=== PATIENT | male | born 1960 | race Caucasian/White ===

== ENCOUNTER → 2020-05-09 08:42 | Outpatient (REF) | payer MEDICAID, SELFPAY ==
--- NOTE | ~2020-05-09 | NM_ITS ---
Myocardial perfusion study Indication: Chest pain to evaluate for myocardial ischemia Technique: The patient was brought in for a Lexiscan perfusion study on 05/09/2020. Patient performed low-level exercise and was injected 0.4 mg of Lexiscan intravenously. Within a minute of injection, 45 mCi of sestamibi was given intravenously. Images were obtained using the SPECT gamma camera interlaced with the gating device. Images were obtained in supine position. Resting perfusion study was performed on 05/10/2020. Patient was administered 45 mCi of sestamibi intravenously at rest. Images were then obtained in supine position. Images were obtained with and without CT attenuation. Total DLP 83 mGy-cm. Images were processed with the software and compared side to side in short axis, horizontal long axis and vertical long axis views. Findings: The stress perfusion study showed non attenuated images show minimal thinning of the basal and mid inferior wall of the LV myocardium, remainder of the LV myocardium is normally perfused. Attenuation corrected images show mildly reduced uptake in the apex of the LV myocardium.. The gated study shows normal LV systolic function with calculated LVEF of 68%. LV cavity is normal in size. The gated study shows normal systolic wall thickening and contraction of segments. Resting study shows no change in perfusion pattern compared to stress perfusion study. Gating at rest reveals normal cyst colic wall motion with ejection fraction at greater than 60 %. The findings are consistent with normal myocardial perfusion. NM/NM raymundo perf SPECT rest & str Impression: 1. Myocardial perfusion imaging study shows normal myocardial perfusion 2. Gated LVEF is 68% 3. Transient ischemic dilatation not present EKG is nondiagnostic for ischemia
--- NOTE | 2020-05-09 09:15 | CA_ITS ---
Acquisition Time: 2020-05-09 09:33:17 Total Exercise Time: 00:02:00 Test Indications: CHEST PAIN Medications: SEE CHART Protocol: LEXISCAN Max HR: 079 BPM 49% of Pred: 159 BPM Max BP: 132/076 mmHG Max Work Load: 1.0 METS Pharmacological stress test using Lexiscan while sitting and kicking his feet. Pt tolerated well, denies any anginal sx. EKG without any arrhythmias. Non-diagnostic for ischemia. Nuclear images to follow. Normotensive response to test. Test reviewed with Dr. Gonzalez. Referred By: Scott Childs Overread By: Tamiko Katz NP
== END ==
LOC: HO.CARD 08:42
PROVIDERS: PCP Internal Medicine; Visit Provider Internal Medicine Cardiovascular Disease
DX: R07.9 Chest pain, unspecified (principal)
CPT/HCPCS: 78452; 93017; A9500; J0280; J2785

== ENCOUNTER 2020-11-14 16:25 | Outpatient (REF) | payer MEDICAID, SELFPAY ==
[2020-11-14 17:29] LABS: Hematocrit 43.8 % (42-52); Hemoglobin 14.7 g/dl (14.0-18.0); Mean Corpuscular HGB Conc 33.6 g/dl (31.0-36.0); Mean Corpuscular Hemoglobin 29.5 pg (27.0-33.0); Mean Platelet Volume 10.3 fL (9.4-12.4); Platelet Count 223 X10*3/uL (160-400); Red Blood Count 4.98 X10*6/uL (4.60-5.80); Red Cell Distribution Width 13.2 % (11.0-16.0); White Blood Count 12.2 X10*3/uL (4.8-10.8)
[2020-11-14 17:40] LABS: Alanine Aminotransferase 31 U/L (0-40); Albumin Level 4.1 g/dL (3.5-5.0); Alkaline Phosphatase 73 U/L (39-117); Anion Gap 12 (12-20); Aspartate Amino Transferase 25 U/L (5-37); Bilirubin Total 0.3 mg/dL (0.0-1.0); Blood Urea Nitrogen 15 mg/dL (9-16); Calcium 9.3 mg/dL (8.4-10.2); Carbon Dioxide 22 mmol/L (22-29); Chloride 110 mmol/L (96-108); Cholesterol 183 mg/dL; Estimated Glomerular Filt Rate 46; Glucose Random 71 mg/dL (60-115); HDL Cholesterol 40 mg/dL; LDL Cholesterol Calculated 109 mg/dl; Potassium 4.2 mmol/L (3.3-5.1); Sodium 140 mmol/L (135-145); Total Protein 6.7 g/dL (6.5-8.0); Triglycerides 171 mg/dL
[2020-11-14 18:01] LABS: Thyroid Stimulating Hormone 2.16 uIU/mL (0.32-4.0)
== END 2020-11-14 16:26 | disposition home or self-care (01) ==
LOC: HO.LAB 16:25
PROVIDERS: PCP Internal Medicine; Visit Provider Internal Medicine
DX: J44.9 Chronic obstructive pulmonary disease, unspecified (principal); I10 Essential (primary) hypertension
CPT/HCPCS: 36415; 80053; 80061; 84443; 85027

== ENCOUNTER 2022-01-22 10:41 | Outpatient (REF) | payer MEDICAID, SELFPAY ==
--- NOTE | ~2022-01-22 | XR_ITS ---
EXAMINATION: XR LUMBOSACRAL SPINE CLINICAL INFORMATION: Low back pain COMPARISON: None TECHNIQUE: Three views of the lumbosacral spine. FINDINGS: There is normal lumbar lordosis. The vertebral heights, alignment and disc heights are normal. There is mild ventral spondylosis. No visible acute fracture or dislocation seen. No lytic process. There is moderate right L4-L5 facet joint hypertrophy. The SI joints are symmetrical and normal. The soft tissues are normal. XR/XR lumbar spine 2-3V IMPRESSION: Moderate right L4-L5 facet joint hypertrophy. No visible acute fracture, dislocation or lytic process seen.
== END 2022-01-22 10:42 | disposition home or self-care (01) ==
LOC: HO.XRAY 10:41
PROVIDERS: Visit Provider Internal Medicine
DX: M54.50 Low back pain, unspecified (principal)
CPT/HCPCS: 72100

== ENCOUNTER 2022-07-25 11:15 | Emergency (ER) | payer MEDICAID, SELFPAY ==
--- NOTE | ~2022-07-25 | CT_ITS ---
EXAMINATION: CT ABDOMEN AND PELVIS WITH CONTRAST CLINICAL INFORMATION: Abdominal pain and constipation. Rule out obstruction. COMPARISON: Previous CT of the abdomen and pelvis April 2014 TECHNIQUE: Multidetector volumetric images were obtained from the superior aspect of the liver through the pubic symphysis following administration 85 mL of Omnipaque 350 intravenous contrast. Sagittal and coronal reformatted images were obtained on the technologist's workstation. Oral contrast: Yes This CT examination was performed using dose optimization techniques as appropriate, variously including the following: *Automated exposure control *Adjustment of mA and/or kV according to patient size (this includes techniques or standardized protocols for targeted exams where dose is matched to indication/reason for exam; i.e. extremities or head) *Use of iterative reconstruction technique DLP: 850 mGy-cm FINDINGS: LUNG BASES: The visualized lung bases are unremarkable. LIVER, GALLBLADDER, AND BILIARY TREE: Fatty liver. No focal hepatic lesion or biliary ductal dilatation is present. Small gallstone in the gallbladder. The gallbladder is otherwise unremarkable. No biliary duct dilatation. Inflammatory changes. PANCREAS: There is fatty infiltration of the pancreas. There are small calcifications in the pancreas suggestive of chronic pancreatitis. SPLEEN: Unremarkable. ADRENAL GLANDS: Unremarkable. KIDNEYS AND URETERS: Mild right hydronephrosis and ureteral dilatation from a 3 mm right UVJ stone. Small bilateral 1 to 2 mm renal stones are 2 cm right renal cyst. No imaging follow-up recommended. BLADDER: Small 3 mm right UVJ stone. The bladder is distended. GASTROINTESTINAL TRACT: Moderate stool burden. The small and large bowel are otherwise unremarkable. The appendix is unremarkable. ABDOMINAL WALL: No significant hernia is appreciated. LYMPH NODES: Normal. VASCULAR: Atherosclerotic disease. No aneurysm. PELVIC VISCERA: Unremarkable. OSSEOUS STRUCTURES: Degenerative changes of the spine. CT/CT abdomen pelvis w IV con IMPRESSION: Mild right hydronephrosis and ureteral dilatation from a 3 mm right UVJ stone. Small bilateral renal stones. Constipation. No evidence of obstruction. Small gallstone. Fleischner guidelines were followed.
--- NOTE | ~2022-07-25 | XR_ITS ---
EXAMINATION: XR ABDOMEN COMPLETE CLINICAL INDICATION: Abdominal pain. Unable to pass stools for a few days. COMPARISON: None available. TECHNIQUE: 2 views of the abdomen. FINDINGS: There is minimal gas in the right and ascending colon and minimal stool in the left colon. There is no suggestion of constipation. The small bowel loops are normal caliber. No free air or free fluid seen. No organomegaly. No gross bony abnormality. No radiopaque calculi except for phleboliths in the pelvis. XR/XR acute abdomen series IMPRESSION: Unremarkable abdomen series. No free air or free fluid.
--- NOTE | 2022-07-25 11:25 | ED_ITS ---
HPI - General Adult General Chief complaint: Abdominal Pain Stated complaint: CONSTIPATION X1 WK W/NO RELEIF S/P MULTI METHODS Time Seen by Provider: 07/25/22 11:25 Source: patient and EMS Mode of arrival: EMS Limitations: no limitations History of Present Illness HPI narrative: Patient is a 61 year old assigned male at with no reported medical history presenting to the emergency department today with constipation. Patient states that he has not been able to have a bowel movement for 5 days and he feels very backed up. Patient states that he has tried multiple things including multiple OTC medication and even manual disimpaction. Patient denies any dizziness, lightheadedness, nausea, vomiting, fever, chills, blurry vision, double vision, loss of vision, chest pain, difficulty breathing, shortness of breath, back pain, night sweats, pain with urination, increased urinary frequency, increased urinary urgency, blood in his urine, syncope or a near syncopal episode, recent trauma or falls, bowel incontinence, bladder incontinence, bladder retention, or any other complaints at this time. Onset (ago): day(s) (5) Location: abdomen Severity: mild Pain Consistency: constant Relieving factors: none Exacerbating factors: none Associated symptoms: denies other symptoms Treatments prior to arrival: none Related Data Previous Rx's Medication Instructions Recorded prednisone 20 mg tablet 20 mg PO DAILY 7 days #7 tabs 07/25/22 tamsulosin 0.4 mg capsule 0.4 mg PO BEDTIME #7 caps 07/25/22 Allergies Allergy/AdvReac Type Severity Reaction Status Date / Time No Known Allergies Allergy Unverified 11/12/19 14:37 [No Known Allergies*] Review of Systems Constitutional: Constitutional: Reports no additional constitutional complaints, Denies chills, Denies fever(s) and Denies night sweats Eyes: Eyes: Reports no additional eye complaints, Denies blurry vision, Denies change in vision, Denies diplopia, Denies eye discharge, Denies loss of vision and Denies eye pain ENT: Denies dizziness Cardiovascular: Cardiovascular: Reports no additional cardiovascular complaint s, Denies chest pain, Denies lightheadedness, Denies Loss of Consciousness and Denies dyspnea Respiratory: Respiratory: Reports no additional respiratory complaints and Denies dyspnea Gastrointestinal: Gastrointestinal: Reports no additional gastrointestinal complaints, Reports abdominal pain, Denies melena, Denies hematochezia, Denies change in bowel habits, Denies change in stool character and Reports constipation Genitourinary: Genitourinary: Reports no additional male genitourinary complaints, Denies hematuria, Denies oliguria, Denies difficulty urinating, Denies dysuria, Denies urinary frequency, Denies urinary hesitancy, Denies urinary incontinence and Denies urinary urgency Musculoskeletal: Musculoskeletal: Reports no additional musculoskeletal complaints, Denies numbness and Denies tingling Neurologic: Denies dizziness, Denies loss of vision, Denies numbness and Denies tingling Psychiatric: Psychiatric: Reports no additional psychiatric complaints Endocrine: Endocrine: Reports no additional endocrine complaints Hematologic/Lymphatic: Hematologic/Lymphatic: Reports no additional hematologic/lymphatic complaints Allergic/Immunologic: Allergic/Immunologic: Reports no additional allergic/immunologic complaints PMFSH Past Medical History Attestation statement: The following information was validated with the patient. Source: old records reviewed and nursing notes reviewed Social History Social History Advance Directives: No Advance Directives Information Provided: Yes Physical Exam ED Vital Signs: Vital Signs - 24 hr 07/25/22 11:31 07/25/22 14:34 Temperature 97.5 F 97.5 F Pulse Rate 68 76 Respiratory Rate 18 18 Blood Pressure 169/75 H 93/49 L Pulse Oximetry 99 94 Oxygen Delivery Method Room Air Room Air BMI result Body Mass Index 36.7 Const General: cooperative, no acute distress, alert and awake Nutritional Appearance: well nourished Orientation/consciousness: patient oriented x3 Limitations: no limitations [facility] Head: Yes normal to inspection and Yes atraumatic Ears: hearing grossly normal bilaterally and external ears normal General nose exam: Normal external nose present, no nasal discharge noted and no epistaxis Face and sinus: Yes normal facial exam, No abrasion and No laceration Mouth: Normal oral and palatal mucosa present, no drooling and no muffled voice Eyes General: appearance normal, both eyes and all related structures Periorbital: periorbital findings normal Eyelids: Yes eyelids normal Conjunctivae: conjunctivae normal Pupils: Equal, round and reactive pupils present EOM: EOMs intact bilaterally Neck Neck: Yes normal visual inspection, Yes full ROM and Yes no lymphadenopathy Chest Chest palpation & inspection: normal inspection of the chest Resp Effort & Inspection: normal respiratory effort and able to speak in complete sentences GI Inspection: Yes normal to inspection Palpation (GI): Soft to palpation, not firm, nontender, no guarding and not rigid Neuro General: patient oriented x3 and moves all extremities Cranial nerves: Yes Equal, round and reactive pupils present Cognition (Neuro): normal cognition Motor exam (neuro): 5/5 motor strength present throughout Sensory Exam: Normal double simultaneous stimulation for sensation Coordination: [id number] test normal Extrem General: Yes normal to inspection, Yes full ROM and Yes capillary refill normal Psych Appearance: grossly normal Mental Status: mental status grossly normal Affect: normal affect Attitude: cooperative Thought process: Normal thought process present Thought content: Normal thought content present Insight: Good insight present (Psych) Medications Administered Discontinued Medications Generic Name Dose Route Start Last Admin Trade Name Yaneth PRN Reason Stop Dose Admin Barium Sulfate 900 ml 07/25/22 15:06 07/25/22 15:07 Barium Sulfate Oral (Vanilla) 450 Ml Oral.Susp PO 07/25/22 15:07 900 ml ONCE ONE Administration Sodium Chloride 1,000 mls @ 999 mls/hr 07/25/22 12:15 07/25/22 14:26 Ns IV 07/25/22 13:15 Infused .Q1H1M TIMA Infusion Iohexol 100 ml 07/25/22 15:07 07/25/22 15:07 Iohexol 350 Mg/Ml 100 Ml Infus..Btl IV 07/25/22 15:08 85 ml ONCE ONE Administration Medical Decision Making Medical Decision Making [facility] Narrative: Patient is a 61 year old assigned male at with no reported medical history presenting to the emergency department today with constipation. Patient's physical exam was unremarkable. Patient's blood work was unremarkable. Patient's abdominal x-ray showed no acute process. Patient's abdominal / pelvis CT showed mild right hydronpehrosis and ureteral dilatation from a 3mm right UVJ stone. I explained my physical exam findings as well as all test results to the patient. I answered all questions asked by the patient. I stressed the importance of the patient taking his medication as prescribed. I stressed the importance of the patient following up with his primary care provider and a urologist. I stressed the importance of the patient returning to the emergency department immediately if his symptoms were to worsen or if he were to develop any dizziness, shortness of breath, difficulty breathing, chest pain, blurry vision, loss of vision, nausea, vomiting, abdominal pain, fever, chills, back pain, or any other compl aints. Patient verbalized agreement and understanding with this treatment plan and discharge. Differential Diagnosis Differential Diagnoses: The differential diagnosis associated with the presentation includes constipation, kidney stone Admission/Observation Consideration of admission/observation: Escalation of care including admission/observation considered Patient would have been admitted to the hospital had his work up had any findings where hospital admission was appropriate. Lab Data MDM Lab Attestation statement: I reviewed the patient's lab results. My interpretation of these studies and their corresponding values is that they are grossly normal. 07/25/22 11:39 07/25/22 11:39 Labs: Lab Results 07/25/22 07/25/22 Range/Units 11:39 11:39 WBC 12.4 H (4.8-10.8) X10*3/uL RBC 5.12 (4.60-5.80) X10*6/uL Hgb 14.6 (14.0-18.0) g/dl Hct 44.0 (42.0-52.0) % MCV 85.9 (80.0-98.0) fL MCH 28.5 (27.0-33.0) pg MCHC 33.2 (31.0-36.0) g/dl RDW 12.7 (11.0-16.0) % Plt Count 261 (160-400) X10*3/uL MPV 9.9 (9.4-12.4) fL Immature Gran % (Auto) 0.3 (0.0-0.4) % Neut % (Auto) 66.5 (45-73) % Lymph % (Auto) 23.9 (20-40) % Pickett % (Auto) 7.2 (2-11) % Eos % (Auto) 1.4 (0-4) % Baso % (Auto) 0.7 (0-2) % Lymph # (Auto) 3.0 (1.2-4.9) X10*3/uL Pickett # (Auto) 0.9 (0.1-1.2) X10*3/uL Eos # (Auto) 0.2 (0.0-0.4) X10*3/uL Baso # (Auto) 0.1 (0.0-0.2) X10*3/uL Abs Immat Gran (auto) 0.04 H (0.00-0.03) X10*3/uL Absolute Neuts (auto) 8.3 (2.0-8.3) x10*3/uL Absolute Nucleated RBC 0.000 (0.0-0.012) X10*3/uL Nucleated RBC % (auto) 0.0 (0.0-0.2) /100WBC Sodium 140 (135-145) mmol/L Potassium 4.0 (3.3-5.1) mmol/L Chloride 110 H (96-108) mmol/L Carbon Dioxide 24 (22-29) mmol/L Anion Gap 10 L (12-20) BUN 14 (9-16) mg/dL Creatinine 1.82 H (0.5-1.4) mg/dL Estim Creat Clear Calc 51.4 Estimated GFR 38 Random Glucose 113 (60-115) mg/dL Calcium 9.6 (8.4-10.2) mg/dL Magnesium 2.1 (1.6-2.6) mg/dL Total Bilirubin 0.6 (0.0-1.0) mg/dL AST 28 (5-37) U/L ALT 37 (0-40) U/L Alkaline Phosphatase 77 (39-117) U/L Total Protein 7.2 (6.5-8.0) g/dL Albumin 4.3 (3.5-5.0) g/dL Independent Interpretation I performed an independent interpretation of an: Plain X-Ray Interpretation: My interpretation is in agreement with the radiologist's impression of these imaging studies. EXAMINATION: XR ABDOMEN COMPLETE CLINICAL INDICATION: Abdominal pain. Unable to pass stools for a few days. COMPARISON: None available. TECHNIQUE: 2 views of the abdomen. FINDINGS: There is minimal gas in the right and ascending colon and minimal stool in the left colon. There is no suggestion of constipation. The small bowel loops are normal caliber. No free air or free fluid seen. No organomegaly. No gross bony abnormality. No radiopaque calculi except for phleboliths in the pelvis. XR/XR acute abdomen series IMPRESSION: Unremarkable abdomen series. ? No free air or free fluid. Dictated By: Peña Perry MD Signed By: Electronically signed by Peña Perry MD 07/25/22 1501 EXAMINATION: CT ABDOMEN AND PELVIS WITH CONTRAST? CLINICAL INFORMATION: Abdominal pain and constipation. Rule out obstruction.? COMPARISON: Previous CT of the abdomen and pelvis April 2014 TECHNIQUE: Multidetector volumetric images were obtained from the superior aspect of the liver through the pubic symphysis following administration 85 mL of Omnipaque 350 intravenous contrast. Sagittal and coronal reformatted images were obtained on the technologist's workstation.? Oral contrast: Yes This CT examination was performed using dose optimization techniques as appropriate, variously including the following: *Automated exposure control *Adjustment of mA and/or kV according to patient size (this includes techniques or standardized protocols for targeted exams where dose is matched to indication/reason for exam; i.e. extremities or head) *Use of iterative reconstruction technique DLP: 850 mGy-cm FINDINGS: LUNG BASES: The visualized lung bases are unremarkable.? LIVER, GALLBLADDER, AND BILIARY TREE: Fatty liver. No focal hepatic lesion or biliary ductal dilatation is present. Small gallstone in the gallbladder. The gallbladder is otherwise unremarkable. No biliary duct dilatation. Inflammatory changes.? PANCREAS: There is fatty infiltration of the pancreas. There are small calcifications in the pancreas suggestive of chronic pancreatitis. SPLEEN: Unremarkable.? ADRENAL GLANDS: Unremarkable.? KIDNEYS AND URETERS: Mild right hydronephrosis and ureteral dilatation from a 3 mm right UVJ stone. Small bilateral 1 to 2 mm renal stones are 2 cm right renal cyst. No imaging follow-up recommended. BLADDER: Small 3 mm right UVJ stone. The bladder is distended. GASTROINTESTINAL TRACT: Moderate stool burden. The small and large bowel are otherwise unremarkable. The appendix is unremarkable.? ABDOMINAL WALL: No significant hernia is appreciated.? LYMPH NODES: Normal. VASCULAR: Atherosclerotic disease. No aneurysm. PELVIC VISCERA: Unremarkable.? OSSEOUS STRUCTURES: Degenerative changes of the spine. CT/CT abdomen pelvis w IV con IMPRESSION: Mild right hydronephrosis and ureteral dilatation from a 3 mm right UVJ stone. Small bilateral renal stones. Constipation. No evidence of obstruction. Small gallstone. ? Fleischner guidelines were followed. Dictated By: Alia Ling MD Signed By: Electronically signed by Alia Ling MD 07/25/22 1600 Discharge Plan Discharge Clinical Impression: Constipation, Kidney calculi Patient Disposition: Home, Self-Care Instructions: Constipation (DC), Kidney Stones (ED) Additional Instructions: Follow up with your primary care provider and a urologist. Return to the emergency department immediately if your symptoms worsen or if you develop any dizziness, shortness of breath, difficulty breathing, chest pain, blurry vision, loss of vision, nausea, vomiting, abdominal pain, fever, chills, back pain, or any other complaints. Prescriptions: New tamsulosin 0.4 mg capsule 0.4 mg PO BEDTIME Qty: 7 0RF prednisone 20 mg tablet 20 mg PO DAILY 7 Days Qty: 7 0RF Referrals: [facility] [place] Family Medicine [Provider Group] (Call to establish and follow up with a primary care provider. If you already have a primary care provider, please follow up with them.) [facility] [place] Primary [facility] [Provider Group] (Call to establish and follow up with a primary care provider. If you already have a primary care provider, please follow up with them.) [facility] [place] Primary [facility] [Provider Group] (Call to establish and follow up with a primary care provider. If you already have a primary care provider, please follow up with them.) Interventions: ED Discharge Assessment Last Done: 07/25/22 16:40 Discharge Date/Time: 07/25/22 16:41 Print Language: Danish
[2022-07-25 11:26] VITALS: BP 150/100
[2022-07-25 11:31] VITALS: BP 169/75; PULSE 68; RESP 18; TEMP 36.4; O2SAT 99; BMI 36.7
[2022-07-25 11:43] LABS: MANUAL DIFF FLAG NO
[2022-07-25 11:59] LABS: Alanine Aminotransferase 37 U/L (0-40); Albumin Level 4.3 g/dL (3.5-5.0); Alkaline Phosphatase 77 U/L (39-117); Anion Gap 10 (12-20); Aspartate Amino Transferase 28 U/L (5-37); Bilirubin Total 0.6 mg/dL (0.0-1.0); Blood Urea Nitrogen 14 mg/dL (9-16); Calcium 9.6 mg/dL (8.4-10.2); Carbon Dioxide 24 mmol/L (22-29); Chloride 110 mmol/L (96-108); Creatinine Clr Calc Pharmacy 51.4; Estimated Glomerular Filt Rate 38; Glucose Random 113 mg/dL (60-115); Magnesium 2.1 mg/dL (1.6-2.6); Sodium 140 mmol/L (135-145); Total Protein 7.2 g/dL (6.5-8.0)
[2022-07-25 12:02] LABS: Basophils Absolute Auto 0.1 X10*3/uL (0.0-0.2); Basophils Percent Auto 0.7 % (0-2); Eosinophils Absolute Auto 0.2 X10*3/uL (0.0-0.4); Eosinophils Percent Auto 1.4 % (0-4); Hemoglobin 14.6 g/dl (14.0-18.0); Imm Gran Abs Auto 0.04 X10*3/uL (0.00-0.03); Imm Gran Pct Auto 0.3 % (0.0-0.4); Lymphocytes Percent Auto 23.9 % (20-40); Mean Corpuscular HGB Conc 33.2 g/dl (31.0-36.0); Mean Corpuscular Hemoglobin 28.5 pg (27.0-33.0); Mean Corpuscular Volume 85.9 fL (80.0-98.0); Mean Platelet Volume 9.9 fL (9.4-12.4); Monocytes Absolute Auto 0.9 X10*3/uL (0.1-1.2); Monocytes Percent Auto 7.2 % (2-11); Neutrophils Absolute Auto 8.3 x10*3/uL (2.0-8.3); Neutrophils Percent Auto 66.5 % (45-73); Platelet Count 261 X10*3/uL (160-400); Red Blood Count 5.12 X10*6/uL (4.60-5.80); Red Cell Distribution Width 12.7 % (11.0-16.0); White Blood Count 12.4 X10*3/uL (4.8-10.8)
[2022-07-25] MEDS: 0.9 % Sodium Chloride 1,000 ML 999 ML IV (12:32)
[2022-07-25 14:34] VITALS: BP 93/49; PULSE 76; RESP 18; TEMP 36.4; O2SAT 94
[2022-07-25] MEDS: iohexoL 350 MG/ML 100 ML INFUS..BTL IV (15:07)
[2022-07-25] MEDS: Barium Sulfate Oral (Vanilla) 450 ML ORAL.SUSP 900 ML PO (15:07)
[2022-07-25 16:11] VITALS: BP 119/60; PULSE 63
== END 2022-07-25 16:41 | disposition home or self-care (01) ==
PROVIDERS: Physician Assistant Medical; Emergency Provider Emergency Medicine; PCP Orthopaedic Surgery
DX: N20.0 Calculus of kidney (principal); K59.00 Constipation, unspecified
CPT/HCPCS: 36415; 51798; 74022; 74177; 80053; 83735; 85025; 96360; 96361; 99284; Q9967

== ENCOUNTER 2023-07-01 10:17 | Outpatient (REF) | payer MEDICAID, SELFPAY ==
[2023-07-01 14:16] LABS: MANUAL DIFF FLAG NO
[2023-07-01 14:20] LABS: Basophils Absolute Auto 0.1 X10*3/uL (0.0-0.2); Basophils Percent Auto 0.7 % (0-2); Eosinophils Absolute Auto 0.3 X10*3/uL (0.0-0.4); Hematocrit 45.4 % (42.0-52.0); Hemoglobin 14.8 g/dl (14.0-18.0); Imm Gran Abs Auto 0.07 X10*3/uL (0.00-0.03); Imm Gran Pct Auto 0.7 % (0.0-0.4); Lymphocytes Absolute Auto 3.7 X10*3/uL (1.2-4.9); Mean Corpuscular HGB Conc 32.6 g/dl (31.0-36.0); Mean Platelet Volume 10.7 fL (9.4-12.4); Monocytes Absolute Auto 0.8 X10*3/uL (0.1-1.2); Monocytes Percent Auto 7.8 % (2-11); Neutrophils Absolute Auto 4.8 x10*3/uL (2.0-8.3); Neutrophils Percent Auto 49.8 % (45-73); Platelet Count 248 X10*3/uL (160-400); Red Cell Distribution Width 13.9 % (11.0-16.0); White Blood Count 9.7 X10*3/uL (4.8-10.8)
[2023-07-01 14:45] LABS: Alanine Aminotransferase 39 U/L (0-40); Albumin Level 3.9 g/dL (3.5-5.0); Alkaline Phosphatase 82 U/L (39-117); Anion Gap 10 (12-20); Aspartate Amino Transferase 33 U/L (5-37); Bilirubin Total 0.4 mg/dL (0.0-1.0); Blood Urea Nitrogen 14 mg/dL (9-16); Calcium 9.3 mg/dL (8.4-10.2); Carbon Dioxide 21 mmol/L (22-29); Chloride 114 mmol/L (96-108); Cholesterol 147 mg/dL (<200); Estimated Glomerular Filt Rate 46; Glucose Random 99 mg/dL (60-115); HDL Cholesterol 38 mg/dL (>40); LDL Cholesterol Calculated 95 mg/dL (<100); Potassium 4.4 mmol/L (3.3-5.1); Sodium 141 mmol/L (135-145); Triglycerides 74 mg/dL (<150)
[2023-07-01 14:49] LABS: TSH reflex Free T4 1.03 uIU/mL (0.32-4.0)
[2023-07-02 04:19] LABS: HIV AB/AG Nonreactive (Nonreactive); HIV Num 1 0.03 S/CO (0.00-0.99); ~HepC Num1 0.08 S/CO (0.00-0.79); ~Hepatitis C Antibody Nonreactive (Nonreactive)
== END 2023-07-01 10:18 | disposition home or self-care (01) ==
LOC: HO.CHCLDS 10:17
PROVIDERS: Visit Provider Internal Medicine
DX: I10 Essential (primary) hypertension (principal); E78.00 Pure hypercholesterolemia, unspecified
CPT/HCPCS: 36415; 80053; 80061; 84443; 85025; 86803; 87389

== ENCOUNTER 2023-12-05 10:52 | Outpatient (AMB) | payer MEDICARE, MEDICAID, SELFPAY ==
[2023-12-05 10:58] VITALS: BP 124/66; PULSE 60; O2SAT 97; BMI 36.9
--- NOTE | 2023-12-05 10:58 | A.OFFVIS_ITS ---
Vital Signs 12/05/23 10:58 Height 5 ft 9 in Weight 250 lb 0.067 oz BMI 36.9 BP 124/66 Blood Pressure Location Lt brachial Position Sitting Pulse 60 Pulse Source Pulse Oximeter Pulse Oximetry (%) 97 Oxygen Delivery Method Room Air Intake Visit Reasons: colonoscopy Screening Intake Note: Shadi presents in office today for a scheduled colo consult. CC: Pt reports that this is a recall colo for him. Pt last colo appears to be ~ 2009. Pt states that it was done through [facility], however; no information found regarding that procedure through [facility]. No sx or concerns at this time. Allergies No Known Allergies [No Known Allergies*] Allergy (Verified 12/05/23 11:15) HPI HPI colonoscopy Screening: Details: 62 year old? male with past medical history of CKD, hypertension, hyperlipidemia, obesity is here today for pre colonoscopy screening.? Patient was sent to us by his PCP.? ? Patient had normal colonoscopy in 2009. Patient denies any gastrointestinal symptoms in the past or at present.? Denies any personal or family history of gastrointestinal disease, colon polyps, or CRC.? Denies history of difficulty with sedation or anesthesia in the past.? Diagnosed with sleep apnea, however unable to use CPAP machine. Patient felt like he was suffocating when he was using it.? Denies any history of cardiac, renal, pulmonary, or hepatic disease.?? No history of infectious? diseases like hepatitis A, B, C, HIV or tuberculosis.? Patient is not on any anticoagulation [facility], [facility] Medical History CKD (chronic kidney disease) Obesity Hypercholesteremia HTN (hypertension) Social History Patient Tobacco Use Status: Former Tobacco user Tobacco use type: Cigarette Use of substances other than those prescribed or required for medical reasons: Yes Substance Use Type: Marijuana Review of Systems Const Denies weight gain and Denies weight loss ENT Reports no additional complaints, Denies dysphagia and Denies odynophagia Card Reports no additional complaints Resp Reports no additional complaints GI Denies abdominal pain, Denies belching, Denies melena, Denies bloating, Denies change in bowel habits, Denies dysphagia, Denies excessive flatus, Denies dyspepsia, Denies heartburn, Denies diarrhea, Denies loose stools, Denies nausea, Denies odynophagia and Denies vomiting Reports no additional complaints Musc Reports no additional complaints Neuro Reports no additional complaints Psych Reports no additional complaints Endo Reports no additional complaints Physical Exam Vital Signs: Last Vital Signs Pulse 60 12/05/23 10:58 BP 124/66 12/05/23 10:58 Pulse Ox 97 12/05/23 10:58 Oxygen Delivery Method Room Air 12/05/23 10:58 BMI result Body Mass Index 36.9 Const General: healthy appearing and no acute distress Nutritional Appearance: obese Orientation/consciousness: patient oriented x3 Resp Effort & Inspection: normal respiratory effort, able to speak in complete sentences, no tracheal deviation and symmetric chest movement Auscultation: clear to auscultation bilaterally Cardio Rate: regular rate GI Inspection: Yes normal to inspection, No distended and Yes obesity Palpation (GI): Soft to palpation, not firm, nontender and No hepatosplenomegaly present Auscultation: normal bowel sounds General: Yes no CVA tenderness Back/Spine/Pelvis Back: no CVA tenderness Skin General skin exam: elasticity normal, turgor normal and dry skin Neuro General: patient oriented x3 Psych Appearance: grossly normal Mental Status: mental status grossly normal Assessment & Plan Assessment & Plan (1) Screen for colon cancer: Code(s): Z12.11 - Encounter for screening for malignant neoplasm of colon Plan Patient denies any GI, cardiac or respiratory symptoms.? Denies any issues with anesthesia in the past.? History of sleep apnea, not using CPAP as patient feels like he was suffocating while using it. No history infectious diseases in the past or present.? Patient is on low-dose aspirin.? No family or personal history of colon cancer or polyps.? Patient denies melena, hematochezia, unintentional weight loss or ribbon like stools.? Discussed at length the pre-procedure,? prep, diet & medications as well as what to expect prior, during and after the procedure.?? Stressed the importance of good bowel prep.? Recommended the use of Vaseline or Calmoseptine OTC & baby wipes with bowel movements to promote comfort.? ?Patient verbalizes understanding and agrees to plan of care.? He was given the opportunity to ask questions and all questions answered.? We will see him after the procedure.? Medications: New bisacodyl (Dulcolax (bisacodyl)) take 4 tabs at noon the day before your colonoscopy 20 mg (4 x 5 mg) PO ONCE 4 tabs 0RF 1 day Z12.11 - Encounter for screening for malignant neoplasm of colon polyethylene glycol 3350 (Miralax) As directed by gastroenterology department at [facility] 238 grams PO ONCE 238 grams 0RF Z12.11 - Encounter for screening for malignant neoplasm of colon Coding Level of Care Code New Pt Level 3 (70344) Diagnoses Screen for colon cancer Z12.11 Time Spent (min) 40 Comment 30 minutes spent with patient and additional 10 minutes spent reviewing his records
== END 2023-12-05 11:53 | disposition home or self-care (01) ==
PROVIDERS: PCP Orthopaedic Surgery; Visit Provider Nurse Practitioner Family
DX: Z01.818 Encounter for other preprocedural examination (principal); Z12.11 Encounter for screening for malignant neoplasm of colon
CPT/HCPCS: 99024

== ENCOUNTER → 2023-12-05 10:52 | Outpatient (BNVA) | payer MEDICARE, SELFPAY | PROVIDERS: PCP Orthopaedic Surgery; Visit Provider Nurse Practitioner Family | DX: Z01.818 Encounter for other preprocedural examination (principal) | CPT/HCPCS: 99212 ==

== ENCOUNTER 2024-04-01 08:54 | Day surgery (SDC) | payer MEDICARE, MEDICAID, SELFPAY ==
[2024-03-30 14:57] VITALS: BMI 36.9
[2024-04-01 09:04] VITALS: BP 120/61; PULSE 67; RESP 18; TEMP 36.9; O2SAT 97; BMI 34.4
--- OUTSIDE RECORDS SUMMARY | 2024-04-01 09:04 | XMS_ITS | Encounter Summary ---
Author Organization [employer] Address [address] [facility] 7t [place] [address] Care Team Providers Care Wastewater Supervisor Name Role Phone Mathieu Varela MD Primary Care Provider Reason for Visit * Reason Comments Med Refill Encounter Details Date Type Department Care Team (Late st Contact Info) Description 03/02/2024 Refill [facility] [address] [place], [place] [phone] Mathieu Varela MD [address] [place] [address] Social History Tobacco Use Types Packs/Day Years Used Date Smoking Tobacco: Former Cigarettes 1.5 47 1 973 - 2020 Smokeless Tobacco: Never Depression Answer Date Recorded Patient Health Questionnaire-9 Score 6 09/04/2023 Patient Health Questionnaire-9 Score 6 09/04/2023 Last PHQ-9: Questionnaire Data Not on file 0 09/04/2023 Housing Stability Answer Date Recorded What is your housing situation today? I have ale [place] 08/26/[address] you li ve. Do you have problems with any of the following? None of the above 08/26/2023 Food Insecurity Answer Date Recorded Within the past 12 months, y ou worried that your food would run out before you got money to buy more: Never True 08/26/2023 Within the past 12 months,th e food you bought just didn't last and you didn't have enough money to get more: Never True 02/2023 Transportation Answer Date Recorded In the past 12 months, has l ack of transportation kept you from medical appts, meetings, work or from getting things needed for daily living? No 08/26/2023 Utilities Answer Date Recorded In the past 12 months, has t he electric, gas, oil or water company threatened to shut off services in your home? No 08/26/2023 Depression Answer Date Recorded Patient Health Questionnaire-2 Score 2 09/04/2023 Internet Access Answer Date Recorded Internet Access Q1 Yes 10/25/2023 Internet Access Q2 Not on file 10/25/2023 Sex and Gender Information Value Date Recorded Sex Assigned at Male 12/25/2021 10:18 AM EDT Legal Sex Male 10:18 AM EDT Gender Identity Male 12/25/2021 10:18 AM EDT Sexual Orientation Straight 12/25/2021 10 :18 AM EDT documented as of this encounter Plan of Treatment Not on file documented as of this encounter Visit Diagnoses Not on filedocumented in this encounter Additional Health Concerns Assessment Noted Time PHQ-9 Depression Total Score: 6 09/04/19 24 10:46 AM EDT documented as of this encounter Care Teams Wastewater Supervisor Relationship Specialty Start Date End Date Mathieu Varela MD [address] [place] [id number] PCP - General Internal Medicine 07/06/13 documented as of this encounter
--- OUTSIDE RECORDS SUMMARY | 2024-04-01 09:04 | XMS_ITS | Encounter Summary ---
Author Organization [employer] Address [address] [facility] 7t [place] [address] Care Team Providers Care Burlesque Dancer Name Role Phone Mathieu Varela MD Primary Care Provider Reason for Visit * Reason Comments Med Refill Encounter Details Date Type Department Care Team (Late st Contact Info) Description 09/19/2022 Refill [facility] [address] [place], [place] [phone] Mathieu Varela MD [address] [place], [place] [phone] Recurrent major depressive disorder, in partial remission (CMS/HCC) Social History Tobacco Use Types Packs/Day Years Used Date Smoking Tobacco: Never Assessed Sex and Gender Information Value Date Recorded Sex Assigned at Male 12/25/2021 10:18 AM EDT Legal Sex Male 10:18 AM EDT Gender Identity Male 12/25/2021 10:18 AM EDT Sexual Orientation Straight 12/25/2021 10 :18 AM EDT documented as of this encounter Plan of Treatment Not on file documented as of this encounter Visit Diagnoses Diagnosis Recurrent major depressive disorder, in partial remission (CMS/HCC) documented in this encounter Care Teams Burlesque Dancer Relationship Specialty Start Date End Date Mathieu Varela MD [address] [place] [address] PCP - General Internal Medicine 07/06/13 documented as of this encounter
--- OUTSIDE RECORDS SUMMARY | 2024-04-01 09:04 | XMS_ITS | Encounter Summary ---
Author Organization [employer] Address [address] [facility] 7t [place] [address] Care Team Providers Care Vulcanizing Machine Operator Name Role Phone Mathieu Varela MD Primary Care Provider Encounter Details Date Type Department Care Team (Late st Contact Info) Description 11/09/2022 Orders Only [facility] [address] [place], [place] [phone] Nikki Guadalupe LPN Social History Tobacco Use Types Packs/Day Years [...] Diagnoses Not on filedocumented in this encounter Care Teams Vulcanizing Machine Operator Relationship Specialty Start Date End Date Mathieu Varela MD [address] [place] [address] PCP - General Internal Medicine 07/06/13 documented as of this encounter
--- OUTSIDE RECORDS SUMMARY | 2024-04-01 09:04 | XMS_ITS | Encounter Summary ---
Author Organization [employer] Address [address] [facility] 7t [place] [address] Care Team Providers Care Trench Digger Helper Name Role Phone Mathieu Varela MD Primary Care Provider [phone] Reason for Visit * Reason Comments Med Change Request Encounter Details Date Type Department Care Team ([facility] st Contact Info) Description 03/02/2024 Refill C [facility] [address] [place], [place] [phone] Mathieu Varela MD [address] [place], [place] [phone] Recurrent major depressive disorder, in partial remission (CMS/HCC) Social History Tobacco Use Types Packs/Day Years Used Date Smoking Tobacco: Former Cigarettes 1.5 47 1 973 - 2019 Smokeless Tobacco: Never Depression Answer Date Recorded [...] partial remission (CMS/HCC) documented in this encounter Additional Health Concerns Assessment Noted Time PHQ-9 Depression Total Score: 6 09/04/19 24 10:46 AM EDT documented as of this encounter Care Teams Trench Digger Helper Relationship Specialty Start Date End Date Mathieu Varela MD [address] [place] [id number] PCP - General Internal Medicine 07/06/13 documented as of this encounter
--- OUTSIDE RECORDS SUMMARY | 2024-04-01 09:04 | XMS_ITS | Encounter Summary ---
Author Organization [employer] Address [address] [facility] 7t [place] [address] Care Team Providers Care Case Finishing Machine Adjuster Name Role Phone Mathieu Varela MD Primary Care Provider Reason for Visit * Reason Onset Date Comments Call Back Request 06/20/2023 Encounter Details Date Type Department Care Team ([facility] st Contact Info) Description 06/20/2023 Telephone [facility] [address] [place] [address] Mathieu Varela MD [address] [place] [address] Call Back Request Social History Tobacco Use Types Packs/Day Years Used Date Smoking Tobacco: Never Assessed Sex and Gender Information Value Date Recorded Sex Assigned at Male 12/25/2021 10:18 AM EDT Legal Sex Male 10:18 AM EDT Gender Identity Male 12/25/2021 10:18 AM EDT Sexual Orientation Straight 12/25/2021 10 :18 AM EDT documented as of this encounter Miscellaneous Notes * Telephone Encounter - Shante Bethea RN - 06/21/2023 4:16 PM EDT Returned call to pt regarding message regarding med issue. Pt was informed that reason why med was declined was because it has been almost 2 years since he has seen PCP and pt needs to be seen prior to any refills can be sent. Pt stated why do I have to see the doctor, I've been on these meds for 10yrs and there is nothing wrong with me? Pt educated on policies as providers CANNOT send meds without pt's being seen in over a year and explained that insurance requires documentation of need for any med or procedures. Pt agreed to schedule f/u with PCP and was glad he understands the reason whymeds were not refilled and requested to apologize PAR as pt admitted he was rude . Informed message would be relayed to their dog track kennel manager to relay message to PAR. Pt agrees to f/u on 06/28/23. * Telephone Encounter - Corazon Casey - 06/20/2023 3:04 PM EDT Tc from pt requesting to speak with a nurse in regards to refusal on refill for hydrOXYzine HCl (Atarax) 25 MG tablet Please contact pt at [phone] documented in this encounter Plan of Treatment Not on file documented as of this encounter Visit Diagnoses Not on filedocumented in this encounter Care Teams Case Finishing Machine Adjuster Relationship Specialty Start Date End Date Mathieu Varela MD [address] [place] [id number] PCP - General Internal Medicine 07/06/13 documented as of this encounter
--- OUTSIDE RECORDS SUMMARY | 2024-04-01 09:04 | XMS_ITS | Encounter Summary ---
Author Organization [facility] Address [address] [place] [address] Phone Care Team Providers Care Bridge Manager Name Role Phone Mathieu Varela MD Primary Care Provider [phone] Encounter Details Date Type Department Care Team (Late st Contact Info) Description 11/07/2021 Documentation Only [facility], [address] [place] [address] Rivka Ozuna PA Social History Tobacco Use Types Packs/Day Years Used Date Smoking Tobacco: Every Day Cigarettes Alcohol Use Standard Drinks/Week Comments Yes 0 (1 standard drink = 0.6 oz pure alcohol) Alcoholic Drinks/day: Occasional social drink Sex and Gender Information Value Date Recorded Sex Assigned at Not on file Legal Sex Male 4:33 PM EST Gender Identity Not on file Sexual Orientation Not on file documented as of this encounter Plan of Treatment Not on file documented as of this encounter Visit Diagnoses Not on filedocumented in this encounter Care Teams Bridge Manager Relationship Specialty Start Date End Date Mathieu Varela MD PCP - General 12/30/18 documented as of this encounter
--- OUTSIDE RECORDS SUMMARY | 2024-04-01 09:04 | XMS_ITS | Encounter Summary ---
Author Organization [employer] Address [address] [facility] [address] [place] [address] Care Team Providers Care Stuffer Name Role Phone Mathieu Varela MD Primary Care Provider Reason for Visit * Reason Comments Med Refill Encounter Details Date Type Department Care Team (Late st Contact Info) Description 04/28/2023 Refill [facility] [address] [place] [address] Mathieu Varela MD [address] [place] [address] Psoriasiform dermatitis Social History Tobacco Use Types Packs/Day Years [...] as of this encounter Visit Diagnoses Diagnosis Psoriasiform dermatitis Other psoriasis and similar disorders documented in this encounter Care Teams Stuffer Relationship Specialty Start Date End Date Mathieu Varela MD [address] [place] [address] PCP - General Internal Medicine 07/06/13 documented as of this encounter
--- OUTSIDE RECORDS SUMMARY | 2024-04-01 09:04 | XMS_ITS | Clinical Summary ---
Author Organization [employer] Address [address] [place] [address] Care Team Providers Care Loan Analyst Name Role Phone Mathieu Varela MD Primary Care Provider Allergies No known active allergies Medications Multiple Vitamin (Daily Vites) tablet TAKE 1 TABLET BY MOUTH EVERY DAY 90 tablet 3 01/03/20 23 Active simvastatin (Zocor) 40 MG tablet TAKE 1 TABLET BY ORAL ROUTE ONCE A DAY AT BEDTIME 90 tablet 3 08/05/19 24 Active Multiple Vitamin (Daily-Nereida Multivitamin) tablet TAKE 1 TABLET BY MOUTH EVERY DAY 90 tablet 3 10/29/19 24 Active gabapentin (Neurontin) 100 MG capsuleIndicatio ns:Paresthesias Take 1 capsule (100 mg) by mouth 3 times daily. 270 capsule 3 12/25/19 24 025 Active amLODIPine (Norvasc) 5 MG tabletIndication s:Essential (primary) hypertension TAKE 1 TABLET BY MOUTH EVERY DAY 90 tablet 02/03/20 24 Active topiramate 50 MG tablet TAKE 1 TABLET BY MOUTH EVERY DAY 90 tablet 02/03/20 24 Active amitriptyline (Elavil) 25 MG tabletIndication s:Paresthesias TAKE 1 TABLET BY MOUTH AT BEDTIME 90 tablet 1 02/27/19 25 Active metoprolol tartrate (Lopressor) 25 MG tablet TAKE 1/2 TABLET (12.5 MG TOTAL) BY MOUTH TWICE DAILY. 90 tablet 1 03/02/19 25 Active buPROPion SR (Wellbutrin SR) 150 MG 12 hr tabletIndication s:Recurrent major depressive disorder, in partial remission (CMS/HCC) TAKE 1 TABLET BY MOUTH EVERY 12 HOURS. DO NOT CRUSH, CHEW, OR SPLIT. 180 tablet 2 03/02/19 25 Active sildenafil (Viagra) 50 MG tabletIndication s:Other male erectile dysfunction Take 1 tablet (50 mg) by mouth if needed each day for erectile dysfunction . 10 tablet 11 03/31/19 25 025 Active sildenafil (Viagra) 50 MG tabletIndication s:Other male erectile dysfunction Take 1 tablet (50 mg) by mouth if needed each day for erectile dysfunction . 10 tablet 02/18/20 24 025 Discontinued(Re order (will not trigger notification to Pharmacy)) Active Problems Problem Noted Date Diagnosed Date Erectile dysfunction 03/31/2024 Hypertensive disorder 03/04/2019 Stage 3b chronic kidney disease 03/04/2019 Hypercholesterolemia 01/15/2013 Angina pectoris 08/21/2011 Benign hypertension 08/21/2011 Chronic obstructive lung disease 08/21/2011 Multiple joint pain 08/21/2011 Encounters Date Type Department Care Team Description 03/31/2024 2:00 PM EST Office Visit [facility] [address] [place] [address] Mathieu Varela MD Benign hypertension (Primary Dx); Other male erectile dysfunction; Other male erectile dysfunction; Tinnitus of both ears 03/31/2024 Refill [facility] [address] [place] [address] Mathieu Varela MD Other male erectile dysfunction 03/31/2024 Travel 03/02/2024 Refill [facility] [address] [place] [address] Mathieu Varela MD Recurrent major depressive disorder, in partial remission ([facility]) 03/02/2024 Refill [facility] [address] [place] [address] Mathieu Hdez MD 02/28/2024 Refill [facility] [address] [place] [address] Mathieu Varela MD Paresthesias 02/18/2024 11:15 AM EST Office Visit [facility] [address] [place] [address] Mathieu Varela MD Other male erectile dysfunction (Primary Dx); Benign hypertension; Grief; Other male erectile dysfunction 02/18/2024 Travel 02/02/2024 Refill [facility] [address] [place] [address] Mathieu Varela MD Essential (primary) hypertension from Last 3 Months Immunizations Name Administration Dates Next Due Influenza injectable quadriv alent IIV4 with preservative 12/01/2018,01/24/2018,11/27/2016,2014 Influenza injectable quadriv alent preservative free 01/15/2022,12/20/2020 Influenza, High Dose Seasona l, Preservative Free 12/25/2023 Influenza, IIV3, injectable 12/21/2013, 0 Influenza, Split (incl. genia fied surface antigen) 12/18/2012 Pneumococcal Conjugate PCV 13 07/22/2009 Pneumococcal Conjugate PCV 20 06/28/2023 Tdap 06/28/2023,01/05/2010 Zoster, Recombinant 03/19/2022,01/15/2022 Family History Medical History Relation Name Comments Hypertension Father Lung cancer Father Ovarian cancer Mother Relation Name Status Comments Father Mother Social History Tobacco Use Types Packs/Day Years Used Date Smoking Tobacco: Former Cigarettes 1.5 47 1 973 - 2019 Smokeless Tobacco: Never Tobacco Cessation:Counseling Given: No Depression Answer Date Recorded Patient Health Questionnaire-9 [...] Orientation Straight 12/25/2021 10 :18 AM EDT Last Filed Vital Signs Vital Sign Reading Time Taken Comments Blood Pressure 133/74 03/31/2024 1:37 PM EST Pulse 77 03/31/2024 1:37 PM EST Temperature 36.1 ??C (96.9 ??F) 03/31/2024 1:37 PM ES T Respiratory Rate 18 03/31/2024 1:37 PM EST Oxygen Saturation 99% 03/31/2024 1:37 PM EST Inhaled Oxygen Concentration - - Weight 106 kg (233 lb) 03/31/2024 1:37 PM EST Height 176.5 cm (5' 9.5 ) 03/31/2024 1:37 PM EST Body Mass Index 33.91 03/31/2024 1:37 PM EST Plan of Treatment Health Maintenance Due Date Last Done Comments CT Colonography 1958 Colonoscopy 1958 Colorectal Cancer Screening 1958 FIT DNA/Cologuard 1958 FIT 1958 FOBT 1958 Sigmoidoscopy 1958 Alcohol/Substance Use Screening 1970 Hepatitis A Vaccines (1 of 2 - Risk 2-dose series) 1977 Lung Cancer Screening 2008 RSV Patients and Patients Aged 60 years or older (1 - Risk 60-74 years 1-dose series) 2018 COVID-19 Vaccine ( season) 2023 03/17/2021, 11/30/2020, 11/02/2020 SDOH Screening 08/25/2024 08/26/2023 Depression Screening 09/03/2024 09/04/2023, 09/04/19 Tobacco Screening 02/17/2025 02/18/2024 Lipid Panel 06/30/2028 07/01/2023, 12/27, 11/14/2020, Additional history exists DTaP/Tdap/Td Vaccines (3 - Td or Tdap) 06/27/2033 06/28/2023, 01/05/2010 Zoster Vaccines Completed 03/19/2022, 01/15/2022 Pneumococcal Vaccine: 50+ Years Completed 06/28/2023, 07/22/2009 Hepatitis C Screening Completed 07/01/2023, 022 Influenza Vaccine Completed 12/25/2023, , 12/20/2020, Additional history exists HIB Vaccines Aged Out No longer eligi ble based on patient's age to complete this topic HPV Vaccines Aged Out No longer eligi ble based on patient's age to complete this topic Hepatitis B Vaccines Aged Out No long er eligible based on patient's age to complete this topic IPV Vaccines Aged Out No longer eligi ble based on patient's age to complete this topic Meningococcal Vaccine Aged Out No angel nader eligible based on patient's age to complete this topic RSV under 20 months Aged Out No longe r eligible based on patient's age to complete this topic Rotavirus Vaccines Aged Out No longer eligible based on patient's age to complete this topic Procedures Procedure Name Priority Date/Time Associated Diagnosis Comments HEPATITIS C AB W/REFL TO HCV RNA, QN, PCR Routine 07/01/2023 10:23 AM EDT Benign hypertension Hypercholesterolemi a LIPID PANEL, STANDARD Routine 07/01/2023 10:23 AM EDT Benign hypertension Hypercholesterolemi a from Last 3 Months or Most Recently Relevant to Health Maintenance Results * Hepatitis C Antibody with Reflex to HCV, RNA, Quantitative, Real-Time PCR (07/01/2023 10:23 AM EDT) Hepatitis C Antibody Nonreactive Nonreactive [facility] Comment:Antibodies to HCV no t detected; does not exclude early acuteHCV infection. Blood Venous blood specimen / Unknown 07/01/2023 10:23 AM EDT 07/01/2023 2:07 PM EDT us Mathieu Varela MD LAB BLOOD ORDERABLES Final Result Performing Organization Address [facility] Co de Phone Number [facility] [address] [place] [address] [phone] * (ABNORMAL) Lipid Panel, Standard (07/01/2023 10:23 AM EDT) Triglycerides 74 <150 mg/dL [facility] Comment:Desirable Triglyceri de: less than 150 mg/dLBorderline High Triglyceride 150-199 mg/dLHigh Triglyceride: 200-499 mg/dLVery High Triglyceride: greater than or equal to 5OO mg/dL Cholesterol 147 <200 mg/dL [facility] Comment:Desirable Cholestero l: less than 200 mg/dLBorderline High Cholesterol: 200-239 mg/dLHigh Cholesterol: greater than 239 mg/dL LDL Cholesterol Calculated 95 <100 mg/dL [facility] Comment:Desirable LDL: less than 100 mg/dLNear Optimal/Above Optimal LDL: 110- 129 mg/dLBorderline High LDL: 130-159 mg/dLHigh LDL: 160-189 mg/dLVery High LDL: greater than or equal to 190 mg/dL HDL Cholesterol 38(L) >40 mg/dL [facility] Comment:Desirable HDL: great er than 40 mg/dL Note: This HDL assay may give artificially low results in patients with liver disease. Blood Venous blood specimen / Unknown 07/01/2023 10:23 AM EDT 07/01/2023 2:07 PM EDT us Mathieu Varela MD LAB BLOOD ORDERABLES Final Result Performing Organization Address [facility]/ZIP Co de Phone Number [facility] [address] [place] [address] [phone] from Last 3 Months or Most Recently Relevant to Health Maintenance Insurance MEDICARE [facility] STANDARD Care Teams Loan Analyst Relationship Specialty Start Date End Date Mathieu Varela MD [address] [place] [address] PCP - General Internal Medicine 07/06/13
--- OUTSIDE RECORDS SUMMARY | 2024-04-01 09:04 | XMS_ITS | Encounter Summary ---
Author Organization [employer] Address [address] [facility] [address] [place] [address] Care Team Providers Care Plate Glass Installer Name Role Phone Mathieu Varela MD Primary Care Provider [phone] Encounter Details Date Type Department Care Team (Late st Contact Info) Description 07/24/2022 Orders Only [facility] [address] [place] [address] Amarilys Ewing LPN Social History Tobacco Use Types Packs/Day [...] on filedocumented in this encounter Care Teams Plate Glass Installer Relationship Specialty Start Date End Date Mathieu Varela MD [address] [place] [address] PCP - General Internal Medicine 07/06/13 documented as of this encounter
--- OUTSIDE RECORDS SUMMARY | 2024-04-01 09:04 | XMS_ITS | Encounter Summary ---
Author Organization [email or web address] Address [address] [place] [address] [address] [place] [address] Care Team Providers Care Curing Oven Attendant Name Role Phone Mathieu Varela MD Primary Care Provider [phone] Reason for Referral * Consultation (Routine) - Pending Review Specialty Diagnoses / Procedures Referred By Kristine nino Referred To Contact Otolaryngology Diagnoses Tinnitus of both ears Mathieu Varela MD [address] [place] [address] Phone: tel: fax: Referral ID Status Reason Start Date Expiration Date Visits Requested Visits Authorized [id number] Pending Review Specialty Services Required 03/31/2024 03/31/2025 1 1 Reason for Visit * Reason Comments Follow-up Htn/grief Encounter Details Date Type Department Care Team ([facility] st Contact Info) Description 03/31/2024 2:00 PM EST Office Visit [facility] [address] [place], [place] [phone] Mathieu Varela MD [address] [place] [address] Benign hypertension (Primary Dx); Other male erectile dysfunction; Other male erectile dysfunction; Tinnitus of both ears Social History Tobacco Use Types Packs/Day Years Used Date Smoking Tobacco: Former Cigarettes 1.5 47 1 973 - 2019 Smokeless Tobacco: Never Depression Answer Date Recorded Patient Health Questionnaire-9 Score 6 09/04/2023 Patient Health Questionnaire-9 Score 6 09/04/2023 Last PHQ-9: Questionnaire Data Not on file 0 09/04/2023 Housing Stability Answer Date Recorded What is your housing situation today? I have ale sing 08/26/[address] you li [...] AM EDT documented as of this encounter Last Filed Vital Signs Vital Sign Reading [...] Mass Index 33.91 03/31/2024 1:37 PM EST documented in this encounter Progress Notes * Mathieu Varela MD - 03/31/2024 2:00 PM EST Subjective Patient ID: Shadi Elliott is a 63 y.o. male who presents for Follow-up (Htn/grief ). HPI Patient with history of hypertension here for follow-up. At the last visit patient was very upset because of the recent of girlfriend and his blood pressure was elevated. He was otherwise asymptomatic. He has been very compliant to his medication. He denies any side effect. Today he is complaining of a buzzing sound of the ears bilaterally that he noticed for about 5 years ago. He feels that the buzzing sound is getting louder. Patient Active Problem List Diagnosis Angina pectoris (CMS/HCC) Benign hypertension Hypertensive disorder Chronic obstructive lung disease (CMS/HCC) Hypercholesterolemia Multiple joint pain Stage 3b chronic kidney disease (CMS/HCC) Erectile dysfunction Current Outpatient Medications on File Prior to Visit Medication Sig Dispense Refill amitriptyline (Elavil) 25 MG tablet TAKE 1 TABLET BY MOUTH AT BEDTIME 90 tablet 1 amLODIPine (Norvasc) 5 MG tablet TAKE 1 TABLET BY MOUTH EVERY DAY 90 tablet 0 buPROPion SR (Wellbutrin SR) 150 MG 12 hr tablet TAKE 1 TABLET BY MOUTH EVERY 12 HOURS. DO NOT CRUSH, CHEW, OR SPLIT. 180 tablet 2 gabapentin (Neurontin) 100 MG capsule Take 1 capsule (100 mg) by mouth 3 times daily. 270 capsule 3 metoprolol tartrate (Lopressor) 25 MG tablet TAKE 1/2 TABLET (12.5 MG TOTAL) BY MOUTH TWICE DAILY. 90 tablet 1 Multiple Vitamin (Daily Vites) tablet TAKE 1 TABLET BY MOUTH EVERY DAY 90 tablet 3 Multiple Vitamin (Daily-Nereida Multivitamin) tablet TAKE 1 TABLET BY MOUTH EVERY DAY 90 tablet 3 simvastatin (Zocor) 40 MG tablet TAKE 1 TABLET BY ORAL ROUTE ONCE A DAY AT BEDTIME 90 tablet 3 topiramate 50 MG tablet TAKE 1 TABLET BY MOUTH EVERY DAY 90 tablet 0 [DISCONTINUED] sildenafil (Viagra) 50 MG tablet Take 1 tablet (50 mg) by mouth if needed each day for erectile dysfunction. 10 tablet 0 No current facility-administered medications on file prior to visit. No Known Allergies Review of Systems Constitutional: Negative for activity change, appetite change, chills and diaphoresis. HENT: Negative for dental problem, drooling and ear discharge. Eyes: Negative for pain and itching. Respiratory: Negative for cough, choking and chest tightness. Cardiovascular: Negative for palpitations and leg swelling. Gastrointestinal: Negative for abdominal pain, anal bleeding and blood in stool. Endocrine: Negative for cold intolerance and heat intolerance. Genitourinary: Negative for flank pain, frequency and genital sores. Musculoskeletal: Negative for back pain. Neurological: Negative for light-headedness, numbness and headaches. Psychiatric/Behavioral: Negative for agitation, confusion and decreased concentration. Objective Physical Exam Constitutional: General: He is not in acute distress. Appearance: Normal appearance. He is not ill-appearing, toxic-appearing or diaphoretic. Cardiovascular: Rate and Rhythm: Normal rate and regular rhythm. Pulmonary: Effort: Pulmonary effort is normal. No respiratory distress. Breath sounds: No stridor. No wheezing or rhonchi. Neurological: General: No focal deficit present. Mental Status: He is alert. Cranial Nerves: No cranial nerve deficit. Sensory: No sensory deficit. Motor: No weakness. Coordination: Coordination normal. Psychiatric: Mood and Affect: Mood normal. Assessment/Plan Diagnoses and all orders for this visit: Benign hypertension Comments: Controlled no change DASH diet Other male erectile dysfunction - sildenafil (Viagra) 50 MG tablet; Take 1 tablet (50 mg) by mouth if needed each day for erectile dysfunction. Other male erectile dysfunction Comments: Viagra 50 mg is effective No change. Orders: - sildenafil (Viagra) 50 MG tablet; Take 1 tablet (50 mg) by mouth if needed each day for erectile dysfunction. Tinnitus of both ears Comments: back ground sound recommended pending the ENT evaluation. Orders: - Referral to ENT; Future documented in this encounter Plan of Treatment Scheduled Referrals Name Type Priority Associated Diagnoses Orde r Schedule Referral to ENT Outpatient Referral Routine Tinnitus of both ears Expected: 03/31/2024 (Approximate), Expires: 03/31/2025 documented as of this encounter Visit Diagnoses Diagnosis Benign hypertension- Primary Essential hypertension, benign Other male erectile dysfunction Tinnitus of both ears Unspecified tinnitus documented in this encounter Additional Health Concerns Assessment Noted Time PHQ-9 Depression Total Score: 6 09/04/19 24 10:46 AM EDT documented as of this encounter Care Teams Curing Oven Attendant Relationship Specialty Start Date End Date Mathieu Varela MD [address] [place] [address] PCP - General Internal Medicine 07/06/13 documented as of this encounter
--- OUTSIDE RECORDS SUMMARY | 2024-04-01 09:04 | XMS_ITS | Encounter Summary ---
Author Organization [employer] Address [address] [facility] 7[address] [place] [address] Care Team Providers Care Fire Prevention Captain Name Role Phone Mathieu Varela MD Primary Care Provider [phone] Encounter Details Date Type Department Care Team (Late st Contact Info) Description 01/09/[address] [facility] [address] [place] [address] Mathieu Varela MD [address] [place] [address] Recurrent major depressive disorder, in partial remission [...] (CMS/HCC) documented in this encounter Care Teams Fire Prevention Captain Relationship Specialty Start Date End Date Mathieu Varela MD [address] [place] [address] PCP - General Internal Medicine 07/06/13 documented as of this encounter
--- OUTSIDE RECORDS SUMMARY | 2024-04-01 09:04 | XMS_ITS | Encounter Summary ---
Author Organization [employer] Address [address] [facility] 7t [place] [address] Care Team Providers Care Balloon Tester Name Role Phone Mathieu Varela MD Primary Care Provider Encounter Details Date Type Department Care Team (Latest Contact Info) Description 03/31/2024 Travel Social History Tobacco Use Types Packs/Day Years Used Date Smoking Tobacco: Former Cigarettes 1.5 47 1 2019 Smokeless Tobacco: Never Depression Answer Date [...] documented as of this encounter Care Teams Balloon Tester Relationship Specialty Start Date End Date Mathieu Varela MD [address] [place] [id number] PCP - General Internal Medicine 07/06/13 documented as of this encounter
--- OUTSIDE RECORDS SUMMARY | 2024-04-01 09:04 | XMS_ITS | Encounter Summary ---
Author Organization [employer] Address [address] [facility] [address] [place] [address] Care Team Providers Care Industrial Relations Commissioner Name Role Phone Mathieu Varela MD Primary Care Provider Encounter Details Date Type Department Care Team (Late st Contact Info) Description 08/14/2022 Orders Only [facility] [address] [place] [address] Susanne Cruz LPN Social History Tobacco Use Types Packs/Day [...] on filedocumented in this encounter Care Teams Industrial Relations Commissioner Relationship Specialty Start Date End Date Mathieu Varela MD [address] [place] [address] PCP - General Internal Medicine 07/06/13 documented as of this encounter
--- OUTSIDE RECORDS SUMMARY | 2024-04-01 09:04 | XMS_ITS | Encounter Summary ---
Author Organization [facility], Address [address] [place] [address] Phone Care Team Providers Care Pot Builder Name Role Phone Mathieu Varela MD Primary Care Provider [phone] Encounter Details Date Type Department Care Team (Late st Contact Info) Description 10/05/2019 Orders Only [facility] [address] [place] [id number] Yulia Rosado MD Chronic kidney disease stage 3 (HCC); Hypertensive disorder Social History Tobacco Use Types Packs/Day Years [...] as of this encounter Visit Diagnoses Diagnosis Chronic kidney disease stage 3 (HCC) Hypertensive disorder documented in this encounter Care Teams Pot Builder Relationship Specialty Start Date End Date Mathieu Varela MD PCP - General 12/30/18 documented as of this encounter
--- OUTSIDE RECORDS SUMMARY | 2024-04-01 09:04 | XMS_ITS | Encounter Summary ---
Author Organization [employer] Address [address] [facility] 7t [place] [address] Care Team Providers Care Sales Development Specialist Name Role Phone Mathieu Varela MD Primary Care Provider [phone] Reason for Visit * Reason Comments Med Refill Encounter Details Date Type Department Care Team (Late st Contact Info) Description 03/31/2024 Refill [facility] [address] [place], [place] [phone] Mathieu Varela MD [address] [place], [place] [phone] Other male erectile dysfunction Social History Tobacco Use Types Packs/Day Years [...] as of this encounter Visit Diagnoses Diagnosis Other male erectile dysfunction documented in this encounter Additional Health Concerns Assessment Noted Time PHQ-9 Depression Total Score: 6 09/04/19 24 10:46 AM EDT documented as of this encounter Care Teams Sales Development Specialist Relationship Specialty Start Date End Date Mathieu Varela MD [address] [place] [address] PCP - General Internal Medicine 07/06/13 documented as of this encounter
--- OUTSIDE RECORDS SUMMARY | 2024-04-01 09:05 | XMS_ITS | Encounter Summary ---
Author Organization [employer] Address [address] [facility] 7t [place] [address] Care Team Providers Care Coat Room Attendant Name Role Phone Mathieu Varela MD Primary Care Provider Reason for Visit * Reason Comments Med Refill Encounter Details Date Type Department Care Team (Late st Contact Info) Description 11/23/2022 Refill [facility] [address] [place], [place] [phone] Mathieu Varela MD [address] [place], [place] [phone] Recurrent major depressive disorder, in partial remission [...] (CMS/HCC) documented in this encounter Care Teams Coat Room Attendant Relationship Specialty Start Date End Date Mathieu Varela MD [address] [place] [address] PCP - General Internal Medicine 07/06/13 documented as of this encounter
--- OUTSIDE RECORDS SUMMARY | 2024-04-01 09:05 | XMS_ITS | Clinical Summary ---
Author Organization [facility], Address [address] [place] [address] [place] [address] Phone Care Team Providers Care Legal Transcriber Name Role Phone Mathieu Varela MD Primary Care Provider [phone] Allergies No known active allergies Medications buPROPion SR (WELLBUTRIN SR) 150 MG 12 hr tablet Take 1 tablet by mouth 2 (two) times a day Active gabapentin (NEURONTIN) 300 MG capsule Take 1 capsule by mouth 3 (three) times a day Active hydrOXYzine (ATARAX) 25 MG tablet Take 1 tablet by mouth 2 (two) times a day Active metoprolol tartrate (LOPRESSOR) 25 MG tablet Take 25 mg by mouth 1 (one) time each day Active nitroglycerin (NITROSTAT) 0.[address] 1 tablet under the tongue every 5 (five) minutes if needed Active simvastatin (ZOCOR) 40 MG tablet Take 1 tablet by mouth every night Active topiramate (TOPAMAX) 50 MG tablet Take 1 tablet by mouth 1 (one) time each day Active amitriptyline (ELAVIL) 10 MG tablet Take 10 mg by mouth every night Active amLODIPine (NORVASC) 5 MG tablet Take 5 mg by mouth 1 (one) time each day Active Cholecalciferol (Vitamin D3) 25 MCG (1000 UT) capsule Take 1 capsule by mouth daily Active sildenafil (VIAGRA) 25 MG tablet Take 25 mg by mouth 1 (one) time each day if needed for erectile dysfunction Active Active Problems Problem Noted Date Diagnosed Date Stage 3b chronic kidney disease 03/04/2019 Hypercholesterolemia 03/04/2019 Hypertensive disorder 03/04/2019 Family History Relation Status Comments Father Unknown Mother Unknown Social History Tobacco Use Types Packs/Day Years Used Date Smoking Tobacco: Every Day Cigarettes Alcohol Use Standard Drinks/Week Comments Yes 0 (1 standard drink = 0.6 oz pure alcohol) Alcoholic Drinks/day: Occasional social drink Sex and Gender Information Value Date Recorded Sex Assigned at Not on file Legal Sex Male 4:33 PM EST Gender Identity Not on file Sexual Orientation Not on file Last Filed Vital Signs Vital Sign Reading Time Taken Comments Blood Pressure 110/70 04/06/2019 2:43 PM EST Pulse - - Temperature - - Respiratory Rate - - Oxygen Saturation - - Inhaled Oxygen Concentration - - Weight 117 kg (257 lb) 04/06/2019 2:43 PM EST Height 175.3 cm (5' 9 ) 12/22/2018 12:00 PM EDT Body Mass Index 37.95 12/22/2018 12:00 PM EDT Plan of Treatment Health Maintenance Due Date Last Done Comments Pneumococcal Vaccine: 65+ Ye ars (1 of 2 - PCV) 1966 Pneumococcal Vaccine: Pediat rics (0 to 5 Years) and At-Risk Patients (6 to 64 Years) (1 of 2 - PCV) 1966 Colorectal Cancer Screening: Annual FOBT 12/17/2007 Colorectal Cancer Screening: Colonoscopy 12/17/2007 Colorectal Cancer Screening: Sigmoidoscopy 12/17/2007 Influenza Vaccine (#1) 2023 Hepatitis B Vaccine Aged Out No longe r eligible based on patient's age to complete this topic Insurance MEDICAID [place] Care Teams Legal Transcriber Relationship Specialty Start Date End Date Mathieu Varela MD PCP - General 12/30/18
--- OUTSIDE RECORDS SUMMARY | 2024-04-01 09:05 | XMS_ITS | Encounter Summary ---
Author Organization [employer] Address [address] [facility] 7[address] [place] [address] Care Team Providers Care Clay Puddler Name Role Phone Mathieu Varela MD Primary Care Provider Reason for Visit * Reason Comments Med Refill Encounter Details Date Type Department Care Team (Late st Contact Info) Description 12/04/2022 Refill [facility] [address] [place] [address] Mathieu Varela MD [address] [place], [place] [id number] Social History Tobacco Use Types Packs/Day Years [...] on filedocumented in this encounter Care Teams Clay Puddler Relationship Specialty Start Date End Date Mathieu Varela MD [address] [place] [address] PCP - General Internal Medicine 07/06/13 documented as of this encounter
--- NOTE | 2024-04-01 09:24 | MHC.SHP ---
Pre-Procedural Eval Section A - 24 Hr Update-Section A only Date of Service: 04/01/24 Section B - Complete if H&P > 30 days Chief Complaint: screening Relevant Family History (Specify if Yes): No Relevant Social History: Other (specify) Present Medications: see Short Stay Collaborative assessment Medical History: Significant History (CKD (chronic kidney disease) Obesity Hypercholesteremia HTN (hypertension)) History of Previous Operations: Relevant previous surgery/procedure and date(s) ( H/O colonoscopy) Allergies: Allergies Allergy/AdvReac Type Severity Reaction Status Date / Time No Known Allergies Allergy Verified 12/05/23 11:15 [No Known Allergies*] Review of Systems Sugical H&P ROS: Negative: Constitution, Cardiovascular, Respiratory, Neurological, Psychiatric, Hem-Onc, Allergic/Immunologic, Gastrointestinal, Genitourinary, Musculoskeletal, Integumentary, Endocrine and Eyes/Ears/Nose/Throat Exam Surgical H&P Exam: Normal: HEENT, Normal: Heart, Normal: Lungs, Normal: Extremities, Normal: Abdomen, Normal: Skin and Normal: Neurological Plan Diagnosis/Plan: Unchanged I have reviewed the history and physical and performed a pertinent physical examination on my patient. No changes have occurred unless specified. Time Spent With Patient Time: Total time managing care of this patient today ____ minutes.
[2024-04-01] MEDS: Lactated Ringers 1,000 ML 100 ML IVCONT (09:31)
--- NOTE | 2024-04-01 11:21 | HO.ANESPROP2 ---
Documented by User: Suzy Aguirre NP 03/31/24 09:15 HPI - Anesthesia Eval Consult details Narrative: 63yo M for Colonoscopy [facility] Past Medical History Medical History (Updated 03/31/24 @ 16:02 by Melanie Gill PA-C) Personal history of nicotine dependence CKD (chronic kidney disease) Obesity Hypercholesteremia HTN (hypertension) Surgical History Surgical History (Updated 04/01/24 @ 09:42 by Deisy Lazaro RN) History of cardiac cath H/O colonoscopy Social History Social History (Reviewed 12/05/23 @ 11:15 by Dwight Doherty [facility] Patient Tobacco Use Status: Former Tobacco user Tobacco use type: Cigarette Substance Use Type: Marijuana Meds Allergies Allergy/AdvReac Type Severity Reaction Status Date / Time No Known Allergies Allergy Verified 12/05/23 11:15 [No Known Allergies*] Home Medications ?Medication ?Instructions ?Recorded ?Confirmed ?Last Taken ?Type amitriptyline 25 mg tablet 25 mg PO BEDTIME 12/05/23 03/30/24 03/31/24 History amlodipine 5 mg tablet 5 mg PO DAILY 12/05/23 03/30/24 04/01/24 History bupropion HCl 150 mg tablet,12 hr 150 mg PO Q12H 12/05/23 03/30/24 04/01/24 History sustained-release metoprolol tartrate 25 mg tablet 12.5 mg PO BID 12/05/23 03/30/24 04/01/24 History multivitamin with folic acid 400 1 tab PO DAILY 12/05/23 04/01/24 04/01/24 History mcg tablet (Daily-Nereida (with folic acid)) sildenafil 25 mg tablet (Viagra) 25 mg PO DAILY PRN Erectile 12/05/23 03/30/24 03/25/24 History Dysfunction simvastatin 40 mg tablet 40 mg PO BEDTIME 12/05/23 03/30/24 04/01/24 History topiramate 50 mg tablet 50 mg PO DAILY 12/05/23 03/30/24 04/01/24 History Exam Height,Weight and Vital Signs: Height 5 ft 9 in Weight 113.398 kg Pertinent Lab Results Pertinent Lab Results: Laboratory Tests 07/01/23 10:23 Sodium 141 Potassium 4.4 Chloride 114 H Carbon Dioxide 21 L BUN 14 Creatinine 1.53 H Assessment and Plan Assessment Anesthesia Assessment: Chart Reviewed Documented by User: Rayne Valles DO 04/01/24 11:24 HPI - Anesthesia Eval Consult details Narrative: 63yo M for Colonoscopy. Smokes marijuana. [facility] Past Medical History Medical History (Updated 03/31/24 @ 16:02 by Melanie Gill PA-C) Personal history of nicotine dependence CKD (chronic kidney disease) Obesity Hypercholesteremia HTN (hypertension) Family History Family history of problems with anesthesia: No Surgical History Surgical History (Updated 04/01/24 @ 09:42 by Deisy Lazaro RN) History of cardiac cath H/O colonoscopy History of Problems with Anesthesia: No Social History Social History (Reviewed 12/05/23 @ 11:15 by Dwight Doherty [facility]) Patient Tobacco Use Status: Former Tobacco user Tobacco use type: Cigarette Substance Use Type: Marijuana Meds Allergies Allergy/AdvReac Type Severity Reaction Status Date / Time No Known Allergies Allergy Verified 12/05/23 11:15 [No Known Allergies*] Home Medications ?Medication ?Instructions ?Recorded ?Confirmed ?Last Taken ?Type amitriptyline 25 mg tablet 25 mg PO BEDTIME 12/05/23 03/30/24 03/31/24 History amlodipine 5 mg tablet 5 mg PO DAILY 12/05/23 03/30/24 04/01/24 History bupropion HCl 150 mg tablet,12 hr 150 mg PO Q12H 12/05/23 03/30/24 04/01/24 History sustained-release metoprolol tartrate 25 mg tablet 12.5 mg PO BID 12/05/23 03/30/24 04/01/24 History multivitamin with folic acid 400 1 tab PO DAILY 12/05/23 04/01/24 04/01/24 History mcg tablet (Daily-Nereida (with folic acid)) sildenafil 25 mg tablet (Viagra) 25 mg PO DAILY PRN Erectile 12/05/23 03/30/24 03/25/24 History Dysfunction simvastatin 40 mg tablet 40 mg PO BEDTIME 12/05/23 03/30/24 04/01/24 History topiramate 50 mg tablet 50 mg PO DAILY 12/05/23 03/30/24 04/01/24 History Exam Exam Date and Time: 04/01/24 1121 Height,Weight and Vital Signs: Height 5 ft 9 in Weight 113.398 kg Vital Signs Temperature 98.5 F 04/01/24 09:04 Pulse Rate 67 04/01/24 09:04 Respiratory Rate 18 04/01/24 09:04 Blood Pressure 120/61 04/01/24 09:04 Pulse Oximetry 97 04/01/24 09:04 Oxygen Delivery Method Room Air 04/01/24 09:04 Temperature 98.5 F 04/01/24 09:04 Pulse Rate 67 04/01/24 09:04 Respiratory Rate 18 04/01/24 09:04 Blood Pressure 120/61 04/01/24 09:04 Pulse Oximetry 97 04/01/24 09:04 Oxygen Delivery Method Room Air 04/01/24 09:04 Airway Mallampati Class: I TM Dist: >3cm Neck ROM: Full Loose/Missing/Broken Teeth: Yes (edentulous) Heart: S1S2 Lungs: CTAB Assessment and Plan Assessment Anesthesia Assessment: Anesthesia Plan Discussed and Chart Reviewed Final Anesthetic Review Family History of Problems with Anesthesia: No History of Problems with Anesthesia: No NPO: Yes ASA Class: II Final Preanesthetic Review: No Changes in Pt Med Stat, Meds/Allgs Chart Reviewed, Consent Obtained/Reviewed and Anes Risks/Benef Reviewed Patient Risk: Low Procedure Risk: Low Anesthetic Plan Anesthetic Plan: MAC: and Agree w/ Assess. and Plan Disposition: Standard PACU
--- NOTE | 2024-04-01 12:03 | HO.OPN-COLON ---
Colonoscopy Operative Note Operative Note Date of Service: 04/01/24 Narrative: Operative Information Procedure Description: Colonoscopy Indication: screening Anesthesia: MAC COLONOSCOPY Instrument: Olympus variable stiffness ADULT scope 190L Colonoscopy Monitoring: Vital signs and clinical assessment, continuous EKG monitoring, Pulse oximetry, Carbon Dioxide monitoring and blood pressure monitoring were done throughout the procedure. Colon withdrawal time was 9 minutes. Procedure: The patient was placed in the left lateral decubitis position and pre-procedure medications were administered. After a digital rectal examination of the ano-rectum, the video colonoscope was inserted into the rectum and advanced through the colon to the cecum/TI. The colonoscope was slowly withdrawn in a retrograde panoramic fashion and the colon mucosa was carefully examined including a retroflexed view of the rectum. Findings and interventions are described below. Procedure Difficulty: moderate, looping Findings: Terminal Ileum- not intubated Cecum: granular mucosa with erythema, bx taken Ascending Colon: normal Transverse Colon - 3-4 mm sessile polyp removed with cold snare Descending Colon:normal Sigmoid Colon: x 2 sessile polyps 9-10 mm removed with cold snare Rectum: Retroflexion with small internal hemorrhoids seen, grade I Anorectum - normal Intervention: cold snare, cold biopsy Colon preparation: Dorsey Bowel Preparation Scale Right colon; 2 Transverse colon: 2 Left colon; 1-2 (0 = Unprepared colon segment with mucosa not seen due to solid stool that cannot be cleared. 1 = Portion of mucosa of the colon segment seen, but other areas of the colon segment not well seen due to staining, residual stool and/or opaque liquid. 2 = Minor amount of residual staining, small fragments of stool and/or opaque liquid, but mucosa of colon segment seen well. 3 = Entire mucosa of colon segment seen well with no residual staining, small fragments of stool or opaque liquid) Impression and Post Procedure Diagnosis: colon polyps internal hemorrhoids Plan: High fiber diet leaflet Avoid straining at stool, epsom salts and sitz bath, anusol supps or cream Repeat Colonoscopy in 2-3 years due to some areas of fair prep or earlier if clinically indicated --next time use colowrap Above findings were reviewed with the patient and relevant handouts were provided if indicated.
[2024-04-01 12:12] VITALS: BP 99/54; PULSE 60; RESP 17; TEMP 36.5
[2024-04-01 12:27] VITALS: BP 113/61; PULSE 57; RESP 20; TEMP 36.5; O2SAT 97
== END 2024-04-01 13:05 | disposition home or self-care (01) ==
PROVIDERS: PCP Internal Medicine; Visit Provider Internal Medicine Gastroenterology
PROC: 0DJD8ZZ Inspection of Lower Intestinal Tract, Via Natural or Artificial Opening Endoscopic (ICD-10-PCS; CPT 45378; principal; 2024-04-01 11:20)
DX: Z12.11 Encounter for screening for malignant neoplasm of colon (principal); D12.3 Benign neoplasm of transverse colon; D12.5 Benign neoplasm of sigmoid colon; K63.89 Other specified diseases of intestine; K64.0 First degree hemorrhoids; I12.9 Hypertensive chronic kidney disease with stage 1 through stage 4 chronic kidney disease, or unspecified chronic kidney disease; N18.9 Chronic kidney disease, unspecified; E78.00 Pure hypercholesterolemia, unspecified; E66.9 Obesity, unspecified; Z68.36 Body mass index [BMI] 36.0-36.9, adult; G47.30 Sleep apnea, unspecified; Z79.899 Other long term (current) drug therapy; Z87.891 Personal history of nicotine dependence
CPT/HCPCS: 45385; 45380; 88305; J2003; J2704

== ENCOUNTER → 2024-04-01 08:54 | Outpatient (BNV) | payer MEDICARE, MEDICAID, SELFPAY | PROVIDERS: PCP Internal Medicine; Visit Provider Internal Medicine Gastroenterology | DX: Z12.11 Encounter for screening for malignant neoplasm of colon (principal); D12.3 Benign neoplasm of transverse colon; D12.5 Benign neoplasm of sigmoid colon; K64.0 First degree hemorrhoids; K63.89 Other specified diseases of intestine | CPT/HCPCS: 45380; 45385 ==

== ENCOUNTER 2024-05-15 10:26 | Outpatient (AMB) | payer MEDICARE, MEDICAID, SELFPAY ==
--- NOTE | 2024-05-15 07:50 | A.OFFVIS_ITS ---
Intake Visit Reasons: Former Smoker Allergies No Known Allergies [No Known Allergies*] Allergy (Verified 12/05/23 11:15) HPI HPI Former Smoker: Details: Initial visit for this 63yo smoker with a 35PYH. Patient started smoking at age 8 for 50 years at 1/2-1ppd. He quit 5 years ago in 2019. . Reports daily marijuana use. Denies second hand smoke exposure. Notes exposure to asbestos, nickel, soot, silica, coal/iron dust and diesel fumes. . Denies known family history of lung cancer. Father at age 88. Denies personal history of cancers. . Denies chest CT in last year. [address] noted clear lung bases and no aneurysm. . Denies recent travel outside the [place]. Denies recent respiratory illness or recent hospitalization for respiratory issues. Denies testing positive for COVID. Admits receiving COVID Vaccine. . Denies fever, chills, new/worsening cough, hemoptysis, hoarseness or dysphagia. Denies significant chest pain, significant dyspnea or unintentional weight loss. Patient Lung Cancer Screening Questionnaire reviewed with patient by provider. . Shared Decision Making Completed. Patient meets criteria. Discussed in detail with patient, the risk vs benefit of LDCT screening. Patient consents to proceed with scan. Discussed smoking cessation. [facility] Medical History (Updated 05/15/24 @ 10:48 by Melanie Gill PA-C) CKD (chronic kidney disease) HTN (hypertension) Hypercholesteremia Tubular adenoma of colon Obesity Personal history of nicotine dependence Surgical History (Updated 05/14/24 @ 12:31 by Melnaie Gill PA-C) History of cardiac cath History of colonoscopy Family History (Updated 05/15/24 @ 10:45 by Melanie Gill PA-C) Mother Ovarian cancer Father Lung cancer Brother Cancer Social History (Updated 05/15/24 @ 10:48 by Melanie Gill PA-C) Patient Tobacco Use Status: Former Tobacco user Tobacco use type: Cigarette Years Smoked: (onset 8yo, 1/2-1ppd x 50yrs, 35pyh, quit 2019) Substance Use Type: Marijuana Assessment & Plan Assessment & Plan (1) Personal history of nicotine dependence: Comment: (onset 8yo, 1/2-1ppd x 50yrs, 35pyh, quit 2019) Code(s): Z87.891 - Personal history of nicotine dependence Category: Medical Plan: - SDM visit completed today in office. - Patient meets criteria for LDCT for lung cancer screening purposes and is asymptomatic. - Smoking cessation counseling offered. Patients can always call [phone]. - Will arrange for a LDCT scan of the chest for screening purposes at [facility]. - Risks, benefits, and alternatives were discussed in detail and the patient agrees to proceed. - Risks discussed include but are not limited to: radiation exposure, anxiety during testing and while awaiting results, false negatives, false positives and possibility of additional intervention such as further imaging or surgical procedures for benign disease. - Benefits are obviously detection of lung cancer at an early stage which can lead to improved outcomes. - Discussed the importance of screening program compliance with adherence to yearly LDCT scan as scheduled - or sooner interval scans for personalized screening regimen. - Discussed follow up plan. Our office will send a letter discussing results and if needed set up phone call and office visit based on CT findings. - Patient educated on results categorization and the management decisions for suspicious findings potentially found on the screening LDCT scan. Any patient with a Lung RADS score of 3 or 4 will be reviewed by a multidisciplinary team at [facility] to form a plan of action in regards to scan findings. - If further work up is warranted for a suspicious lung finding this will be followed by the Lung Cancer Screening program in conjunction with the Thoracic Surgery Department at [facility]. - A copy of the office note and LDCT will be sent to the patient's PCP - as well as documentation on any associated further plans of care. - Incidental findings on LDCT are the PCP's responsibility. These findings are indicated with an S finding on the LDCT Assessment. A note discussing the findings will be sent to the PCP who is then responsible for further management. - All questions answered.? Coding Level of Care Code Lung Cancer Screening G0296 Diagnoses Personal history of nicotine dependence Z87.89
--- OUTSIDE RECORDS SUMMARY | 2024-05-15 12:27 | XMS_ITS | Encounter Summary ---
Author Organization [facility] Address [address] [place] [address] [address] [place] [address] Care Team Providers Care Poultry Cutter Name Role Phone Mathieu Varela MD Primary Care Provider Reason for Visit * Reason Comments Med Refill Encounter Details Date Type Department Care Team (Late st Contact Info) Description 09/19/[address] [facility] [address] [place] [address] Mathieu Varela MD [address] [place] [address] Recurrent major depressive disorder, in partial remission [...] as of this encounter Plan of Treatment Upcoming Encounters Date Type Department Care Team (Late st Contact Info) Description 07/06/2024 2:30 PM EDT Office Visit [facility] [address] [place] [address] Mathieu Varela MD [address] [place] [address] documented as of this encounter Visit Diagnoses Diagnosis Recurrent major depressive disorder, in partial remission (CMS/HCC) documented in this encounter Care Teams Poultry Cutter Relationship Specialty Start Date End Date Mathieu Varela MD [address] [place] [address] PCP - General Internal Medicine 07/06/13 documented as of this encounter
--- OUTSIDE RECORDS SUMMARY | 2024-05-15 12:27 | XMS_ITS | Encounter Summary ---
Author Organization [employer] [facility] Address [address] [facility] 7[address] [place] [address] Care Team Providers Care Hot Tamale Man Name Role Phone Mathieu Varela MD Primary Care Provider Encounter Details Date Type Department Care Team (Late st Contact Info) Description 11/09/2022 Orders Only [facility] [address] [place] [address] Nikki Guadalupe LPN Social History Tobacco Use [...] Description 07/06/2024 2:30 PM EDT Office Visit [facility] [address] [place] [address] Mathieu Varela MD [address] [place] [address] documented as of this encounter Visit Diagnoses Not on filedocumented in this encounter Care Teams Hot Tamale Man Relationship Specialty Start Date End Date Mathieu Varela MD [address] [place] [address] PCP - General Internal Medicine 07/06/13 documented as of this encounter
--- OUTSIDE RECORDS SUMMARY | 2024-05-15 12:27 | XMS_ITS | Encounter Summary ---
Author Organization [facility] Address [address] [place] [address] Phone Care Team Providers Care Vice President Digital Strategist Name Role Phone Mathieu Varela MD Primary Care Provider [phone] Encounter Details Date Type Department Care Team (Late st Contact Info) Description 11/07/2021 Documentation Only [facility], [address] [place] [address] Rivka Ozuna PA Social History [...] on filedocumented in this encounter Care Teams Vice President Digital Strategist Relationship Specialty Start Date End Date Mathieu Varela MD PCP - General 12/30/18 documented as of this encounter
--- OUTSIDE RECORDS SUMMARY | 2024-05-15 12:27 | XMS_ITS | Encounter Summary ---
Author Organization [facility] [facility] Address [address] [facility] [address] [place] [address] Care Team Providers Care Veterinary Poultry Inspector Name Role Phone Mathieu Varela MD Primary Care Provider Encounter Details Date Type Department Care Team (Late st Contact Info) Description 08/14/2022 Orders Only [facility] [address] [place] [address] Susanne Cruz LPN Social History Tobacco Use [...] 2:30 PM EDT Office Visit [facility] [address] [place] [address] Mathieu Varela MD [address] [place] [address] documented as of this encounter Visit Diagnoses Not on filedocumented in this encounter Care Teams Veterinary Poultry Inspector Relationship Specialty Start Date End Date Mathieu Varela MD [address] [place] [address] PCP - General Internal Medicine 07/06/13 documented as of this encounter
--- OUTSIDE RECORDS SUMMARY | 2024-05-15 12:27 | XMS_ITS | Encounter Summary ---
Author Organization [facility], Address [address] [place] [address] Phone Care Team Providers Care Analog Ic Design Engineer Name Role Phone Mathieu Varela MD Primary Care Provider [phone] Encounter Details Date Type Department Care Team (Late st Contact Info) Description 10/05/2019 Orders Only [facility] [address] [place] [id number] Yulia Rosado MD Chronic kidney disease stage [...] disorder documented in this encounter Care Teams Analog Ic Design Engineer Relationship Specialty Start Date End Date Mathieu Varela MD PCP - General 12/30/18 documented as of this encounter
--- OUTSIDE RECORDS SUMMARY | 2024-05-15 12:27 | XMS_ITS | Encounter Summary ---
Author Organization [employer] [facility] Address [address] [facility] [address] [place] [address] Care Team Providers Care Crab Picker Name Role Phone Mathieu Varela MD Primary Care Provider [phone] Encounter Details Date Type Department Care Team (Late st Contact Info) Description 07/24/2022 Orders Only [facility] [address] [place] [address] Amarilys Ewing LPN Social History Tobacco Use [...] Description 07/06/2024 2:30 PM EDT Office Visit [facility] [address] [place] [address] Mathieu Varela MD [address] [place] [address] documented as of this encounter Visit Diagnoses Not on filedocumented in this encounter Care Teams Crab Picker Relationship Specialty Start Date End Date Mathieu Varela MD [address] [place] [address] PCP - General Internal Medicine 07/06/13 documented as of this encounter
--- OUTSIDE RECORDS SUMMARY | 2024-05-15 12:28 | XMS_ITS | Patient Health Record ---
Author Organization [facility] Address [address] [place] [address] Care Team Providers Care Concrete Curer Name Role Phone Mathieu Varela M.D. Primary Care Provider Un available Kike Orellana Unavailable [phone] Reason For Referral No Information Plan Of Treatment No Information Insurance Providers Payer Name Payer Address Payer Phone Subscriber Number Group Number Insured Name Patient Relationship to Insured Coverage Start Date Coverage End Date MEDICAID OF [facility] [address] [place] [address] [id number] WILL ROMEO Self - patient is the insured
--- OUTSIDE RECORDS SUMMARY | 2024-05-15 12:28 | XMS_ITS | Encounter Summary ---
Author Organization [employer] Address [address] 7[address] [place] [address] Care Team Providers Care Liability Claims Examiner Name Role Phone Mathieu Varela MD Primary Care Provider Reason for Visit * Reason Comments Med Refill Encounter Details Date Type Department Care Team (Late st Contact Info) Description 05/02/[address] [facility] MED & PEDS [address] [place], [place] [phone] Sonam Quijano MD [address] [place] [address] Social History Tobacco Use Types Packs/Day Years [...] t he electric, gas, oil or water [employer] threatened to shut off services in your [...] Description 07/06/2024 2:30 PM EDT Office Visit [facility] MED & PEDS [address] [place] [address] Mathieu Varela MD [address] [place] [address] documented as of this encounter Visit Diagnoses Not on filedocumented in this encounter Additional Health Concerns Assessment Noted Time PHQ-9 Depression Total Score: 6 09/04/19 24 10:46 AM EDT documented as of this encounter Care Teams Liability Claims Examiner Relationship Specialty Start Date End Date Mathieu Varela MD [address] [place] [address] PCP - General Internal Medicine 07/06/13 documented as of this encounter
--- OUTSIDE RECORDS SUMMARY | 2024-05-15 12:28 | XMS_ITS | Encounter Summary ---
Author Organization [employer] Address [address] [facility] 7t [place] [address] Care Team Providers Care City Marshal Name Role Phone Mathieu Varela MD Primary Care Provider [phone] Reason for Visit * Reason Comments Med Refill Encounter Details Date Type Department Care Team (Late st Contact Info) Description 04/30/2024 Refill [facility]S [address] [place], [place] [phone] Mathieu Varela MD 505 [place], [place] [phone] Essential (primary) hypertension Social History Tobacco Use Types Packs/Day Years Used Date Smoking Tobacco: Former Cigarettes 1.5 47 1 97 - 2019 Smokeless Tobacco: Never Depression Answer [...] Description 07/06/2024 2:30 PM EDT Office Visit [facility] MED & PEDS [address] [place] [address] Mathieu Varela MD [address] [place] [address] documented as of this encounter Visit Diagnoses Diagnosis Essential (primary) hypertension Unspecified essential hypertension documented in this encounter Additional Health Concerns Assessment Noted Time PHQ-9 Depression Total Score: 6 09/04/19 24 10:46 AM EDT documented as of this encounter Care Teams City Marshal Relationship Specialty Start Date End Date Mathieu Varela MD [address] [place] [address] PCP - General Internal Medicine 07/06/13 documented as of this encounter
--- OUTSIDE RECORDS SUMMARY | 2024-05-15 12:28 | XMS_ITS | Encounter Summary ---
Author Organization [employer] Address [address] [facility] 7t [place] [address] Care Team Providers Care Automation Architect Name Role Phone Mathieu Varela MD Primary Care Provider Reason for Visit * Reason Onset Date Comments Appointment Request 04/07/2024 Encounter Details Date Type Department Care Team (Late st Contact Info) Description 04/07/[address] [facility] MEDICINE [address] [place] [address] Mathieu Varela MD [address] [place], [place] [phone] Appointment Request Social History Tobacco Use Types Packs/Day [...] encounter Miscellaneous Notes * Telephone Encounter - Mathieu Varela MD - 04/20/2024 8:44 AM EST Patient was called. No answer. Message left to call the office back. He has tubular adenomas. He will need to repeat his colonoscopy in 3 to 5 years. * Telephone Encounter - Shree Chamberlain - 04/07/2024 11:12 AM EST TC from pt stating that he had a Colonoscopy on 04/01/24. Pt was directed to make a Fu visit with Pcphe said that he doesn't mind if its in person or over the phone. Contact Pt at [phone] documented in this encounter Plan of Treatment Upcoming Encounters Date Type Department Care Team (Late st Contact Info) Description 07/06/2024 2:30 PM EDT Office Visit [facility] MED & PEDS [address] [place] [address] Mathieu Varela MD [address] [place] [address] documented as of this encounter Visit Diagnoses Not on filedocumented in this encounter Additional Health Concerns Assessment Noted Time PHQ-9 Depression Total Score: 6 09/04/19 24 10:46 AM EDT documented as of this encounter Care Teams Automation Architect Relationship Specialty Start Date End Date Mathieu Varela MD [address] [place] [address] PCP - General Internal Medicine 07/06/13 documented as of this encounter
--- OUTSIDE RECORDS SUMMARY | 2024-05-15 12:28 | XMS_ITS | Encounter Summary ---
Author Organization [employer] Address [address] [facility] 7t [place] [address] Care Team Providers Care Teacher Physically Impaired Name Role Phone Mathieu Varela MD Primary Care Provider Reason for Visit * Reason Onset Date Comments Call Back Request 06/20/2023 Encounter Details Date Type Department Care Team ([facility] st Contact Info) Description 06/20/2023 Telephone [facility] MED & PEDS [address] [place] [address] Mathieu Varela MD [address] [place] [address] Call Back Request Social History Tobacco Use [...] Informed message would be relayed to their manager progressive care to relay message to PAR. Pt agrees to f/u on 06/28/23. * Telephone Encounter - Corazon Jacinto - 06/20/2023 3:04 PM EDT Tc from pt requesting to speak with a nurse in regards to refusal on refill for hydrOXYzine HCl (Atarax) 25 MG tablet Please contact pt at [phone] documented in this encounter Plan of Treatment Upcoming Encounters Date Type Department Care Team (Late st Contact Info) Description 07/06/2024 2:30 PM EDT Office Visit [facility] MED & PEDS [address] [place] [address] Mathieu Varela MD [address] [place] [address] documented as of this encounter Visit Diagnoses Not on filedocumented in this encounter Care Teams Teacher Physically Impaired Relationship Specialty Start Date End Date Mathieu Varela MD [address] [place] [address] PCP - General Internal Medicine 07/06/13 documented as of this encounter
--- OUTSIDE RECORDS SUMMARY | 2024-05-15 12:28 | XMS_ITS | Encounter Summary ---
Author Organization [employer] [facility] Address [address] [place] [address] [address], [place] [address] Care Team Providers Care It Security Engineer Name Role Phone Mathieu Varela MD Primary Care Provider Reason for Visit * Reason Comments Med Refill Encounter Details Date Type Department Care Team (Late st Contact Info) Description 12/04/2022 Refill [facility] MED & PEDS 505 [place] [address] Mathieu Varela MD [address] [place] [address] Social History Tobacco Use Types Packs/Day Years [...] Encounters Date Type Department Care Team (Late Contact Info) Description 07/06/2024 2:30 PM EDT Office Visit [facility] CHC MED & PEDS [address] [place] [address] Mathieu Varela MD [address] [place] [address] documented as of this encounter Visit Diagnoses Not on filedocumented in this encounter Care Teams It Security Engineer Relationship Specialty Start Date End Date Mathieu Varela MD [address] [place] [address] PCP - General Internal Medicine 07/06/13 documented as of this encounter
--- OUTSIDE RECORDS SUMMARY | 2024-05-15 12:28 | XMS_ITS | Clinical Summary ---
Author Organization [facility], Address [address] [place] [address] [place] [address] Phone Care Team Providers Care Shoeblack Name Role Phone Mathieu Varela MD Primary Care Provider [phone] Allergies No known active allergies Medications buPROPion [...] this topic Insurance MEDICAID [place] Care Teams Shoeblack Relationship Specialty Start Date End Date Mathieu Varela MD PCP - General 12/30/18
--- OUTSIDE RECORDS SUMMARY | 2024-05-15 12:28 | XMS_ITS | Clinical Summary ---
Author Organization [employer] Address [address] [facility] 7t [place] [address] Care Team Providers Care Cap Cutter Name Role Phone Mathieu Varela MD [...] 270 capsule 3 12/25/19 24 025 Active amitriptyline (Elavil) 25 MG tabletIndication s:Paresthesias [...] each day for erectile dysfunction. 10 tablet 11 03/31/19 25 025 Active amLODIPine (Norvasc) 5 MG tabletIndication s:Essential (primary) hypertension TAKE 1 TABLET BY MOUTH EVERY DAY 90 tablet 3 05/01/19 25 Active topiramate 50 MG tablet TAKE 1 TABLET BY MOUTH EVERY DAY 90 tablet 05/05/19 25 Active amLODIPine (Norvasc) 5 MG tabletIndication s:Essential (primary) hypertension TAKE 1 TABLET BY MOUTH EVERY DAY 90 tablet 02/03/20 24 025 Discontinued topiramate 50 MG tablet TAKE 1 TABLET BY MOUTH EVERY DAY 90 tablet 02/03/20 24 025 Discontinued amLODIPine (Norvasc) 5 MG tabletIndication s:Essential (primary) hypertension TAKE 1 TABLET BY MOUTH EVERY DAY 30 tablet 2 04/30/19 25 025 Discontinued Active Problems Problem Noted Date Diagnosed Date Erectile dysfunction 03/31/2024 Hypertensive disorder 03/04/2019 Stage 3b chronic kidney disease 03/04/2019 Hypercholesterolemia 01/15/2013 Angina pectoris 08/21/2011 Benign hypertension 08/21/2011 Chronic obstructive lung disease 08/21/2011 Multiple joint pain 08/21/2011 Encounters Date Type Department Care Team Description 05/02/2024 Refill [facility] MED & PEDS [address] [place] [address] Sonam Quijano MD 04/30/2024 Refill [facility] MED & PEDS [address] [place] [address] Mathieu Varela MD Essential (primary) hypertension 04/28/2024 Refill [facility] MED & PEDS [address] [place] [address] Sonam Quijano MD Essential (primary) hypertension 04/07/2024 Telephone [facility] MEDICINE [address] [place] [address] Mathieu Varela MD Appointment Request 04/01/2024 Orders Only GENERIC EXTERNAL DATA DEPARTMENT Provider, Generic External Data 03/31/2024 2:00 PM EST Office Visit [facility] MED & PEDS [address] [place] [address] Mathieu Varela MD Benign hypertension (Primary Dx); Other male erectile dysfunction; Other male erectile dysfunction; Tinnitus of both ears 03/31/2024 Refill [facility] MED & PEDS [address] [place] [address] Mathieu Varela MD Other male erectile dysfunction 03/31/2024 Travel 03/02/2024 Refill [facility] MED & PEDS [address] [place] [address] Mathieu Varela MD Recurrent major depressive disorder, in partial remission ([facility]/HCC) 03/02/2024 Refill [facility] MED & PEDS [address] [facility] [place] [address] Mathieu Varela MD 02/28/2024 Refill [facility] MED & PEDS [address] [place] [address] Mathieu Varela MD Paresthesias 02/18/2024 11:15 AM EST Office Visit [facility] MED & PEDS [address] [place] [address] Mathieu Varela MD Other male erectile dysfunction (Primary Dx); Benign hypertension; Grief; Other male erectile dysfunction 02/18/2024 Travel from Last 3 Months Immunizations Name Administration [...] 1 973 - 2020 Smokeless Tobacco: Never Tobacco Cessation:Counseling Given: No [...] 03/31/2024 1:37 PM EST Plan of Treatment Upcoming Encounters Date Type Department Care Team ([facility] st Contact Info) Description 07/06/2024 2:30 PM EDT Office Visit [facility] MED & PEDS [address] [place] [address] Mathieu Varela MD [address] [place] [address] Health Maintenance Due Date Last Done Comments CT Colonography 1960 FIT DNA/Cologuard 1960 FIT 1960 FOBT 1960 Sigmoidoscopy 1960 Alcohol/Substance Use Screening 1970 Lung Cancer Screening 2008 RSV Patients and Patients Aged 60 years or older (1 - Risk 60-74 years 1-dose series) 2018 COVID-19 Vaccine ( season) 2023 03/17/2021, 11/30/2020, 11/02/2020 SDOH Screening 08/25/2024 08/26/2023 Depression Screening 09/03/2024 09/04/2023, 09/04/19 Tobacco Screening 02/17/2025 02/18/2024 Colonoscopy 04/01/2027 Colorectal Cancer Screening 04/01/2027 Lipid Panel 06/30/2028 07/01/2023, 12/27, 11/14/2020, Additional [...] patient's age to complete this topic Hepatitis A Vaccines Aged Out No long er eligible [...] Procedure Name Priority Date/Time Associated Diagnosis Comments HEMATOXYLIN AND EOSIN STAIN Routine 04/01/2024 11:44 AM EST HEPATITIS C AB W/REFL TO HCV RNA, QN, PCR Routine 07/01/2023 10:23 AM EDT Benign hypertension Hypercholesterolemi a LIPID PANEL, STANDARD Routine 07/01/2023 10:23 AM EDT Benign hypertension Hypercholesterolemi a from Last 3 Months or Most Recently Relevant to Health Maintenance Results * Hematoxylin and Eosin Stain (04/01/2024 11:44 AM EST) 04/01/2024 11:4 4 AM EST 04/01/2024 1:13 PM EST [facility] - 04/02/2024 12:58 PM EST ----- ------- Name: Shadi Elliott ?Age/Sex: 63/M ? : 1960 Unit#: [id number] ?? Attend Dr: Avelina Swenson MD ?Re04/01/24 ?Status: DEP SDC ? Location: HO.SSS ?Disch: ? ----- ------- SPEC : [id number] ?RECD: 04/01/24 ? STATUS: ??SOUT ? REQ NUM: [id number] ? CAITLIN: 04/01/24 ? SUBM DR: Avelina Swenson MD ? ENTERED: ??04/01/24 ?SP TYPE: Surgical ? OTHR DR: Mathieu Varela MD ? ORDERED: ??HE Stain/12, Gross Micro L4/4 ? Diagnosis ?? A. ??Colon, cecum, biopsy: ??Colonic mucosa with lymphoid aggregates and congestion, ?? otherwise no specific change. ? B. ??Colon, ascending, biopsy: ??Colonic mucosa with lymphoid aggregate, congestion, and ?? focal lamina propria hemorrhage, otherwise no specific change. ? C. ??Colon, transverse, polyp: ??Tubular adenoma; negative for high-grade dysplasia and ?? carcinoma. ? D. ??Colon, sigmoid, polyps: ??Tubular adenoma (1 piece); negative for high- grade dysplasia ?? and carcinoma, and hyperplastic polyp (1 piece). ?Clinical History Pre-Op Dx: ??Screening Post-Op Dx: Colon polyps, nonspecific erythema right colon, internal hemorrhoids ?Microscopic Description Microscopic sections reviewed. ? Material Received ?? A. Cecal bx ?? B. Ascending colon bx ?? C. Transverse colon polyp ?? D. Sigmoid colon polyps ? Gross Description Received in four parts. Part A: ??Received in formalin labeled ?cecal bx? are 3 solo and solo- pink irregular and rectangular tissue fragments ranging from 0.1-0.5 cm, submitted in toto in a cassette labeled A. Part B: ??Received in formalin labeled ?ascending colon bx? are 2 solo- pink irregular tissue fragments each measuring 0.25 cm, submitted in toto in a cassette labeled B. Part C: ??Received in formalin labeled ?transverse colon polyp? are 2 solo irregular tissue fragments measuring 0.15 and 0.25 cm, submitted in toto in a cassette labeled C. ? CONTINUED ON NEXT PAGE ----- ------- Name: Shadi Elliott ?Age/Sex: 63/M ? : 1960 Unit#: [id number] ?? Attend Dr: Avelina Swenson MD ?Re04/01/24 ?Status: DEP SDC ? Location: HO.SSS ?Disch: ? ----- ------- SPEC : [id number] ?RECD: 04/01/24 ? STATUS: ??SOUT ? REQ NUM: [id number] ? CAITLIN: 04/01/24 ? SUBM DR: Avelina Swenson MD ? ENTERED: ??04/01/24 ?SP TYPE: Surgical ? OTHR DR: Mathieu Varela MD ? ORDERED: ??HE Stain/12, Gross Micro L4/4 ? Gross Description ?(Continued) Part D: ??Received in formalin labeled ?sigmoid colon polyp? are 2 solo-pink papular tissue fragments measuring 0.3 and 0.45 cm, submitted in toto in a cassette labeled D. JL Copies To: ?? Mathieu Varela MD ?? [facility] ?? [address] ?? [place] [address] ?? [phone] ?? Avelina Swenson MD ?? [facility] ?? [address] ?? [place] [address] ?? [phone] ----- ------- Signed (signature on file) Arlin Barragan 04/02/24 1258 ? ----- ------- ? END OF REPORT ? us Generic External Data Provider LAB BLOOD ORDERAB LES Final Result [facility] [address] [facility] [place] [address] [phone] * Hepatitis C Antibody with Reflex to HCV, RNA, Quantitative, Real-Time PCR (07/01/2023 10:23 AM EDT) Hepatitis C Antibody Nonreactive Nonreactive [facility] Comment:Antibodies to HCV no t detected; does not exclude early acuteHCV infection. Blood Venous blood specimen / Unknown 07/01/2023 10:23 AM EDT 07/01/2023 2:07 PM EDT us Mathieu Varela MD LAB BLOOD ORDERABLES Final Result Performing Organization Address [facility]/ZIP Co de Phone Number [facility] [address] [place] [address] [phone] * (ABNORMAL) Lipid Panel, Standard (07/01/2023 10:23 AM EDT) Triglycerides 74 <150 mg/dL [facility] Comment:Desirable Triglyceri de: less than 150 mg/dLBorderline High Triglyceride 150-199 mg/dLHigh Triglyceride: 200-499 mg/dLVery High Triglyceride: greater than or equal to 5OO mg/dL Cholesterol 147 <200 mg/dL [facility] Comment:Desirable Cholestero l: less than 200 mg/dLBorderline High Cholesterol: 200-239 mg/dLHigh Cholesterol: greater than 239 mg/dL LDL Cholesterol Calculated 95 <100 mg/dL [facility] Comment:Desirable LDL: less than 100 mg/dLNear Optimal/Above Optimal LDL: 110- 129 mg/dLBorderline High LDL: 130-159 mg/dLHigh LDL: 160-189 mg/dLVery High LDL: greater than or equal to 190 mg/dL HDL Cholesterol 38(L) >40 mg/dL [facility] Comment:Desirable HDL: great er than 40 mg/dL Note: This HDL assay may give artificially low results in patients with liver disease. Blood Venous blood specimen / Unknown 07/01/2023 10:23 AM EDT 07/01/2023 2:07 PM EDT us Mathieu Varela MD LAB BLOOD ORDERABLES Final Result Performing Organization Address City/[facility]/ZIP Co de Phone Number [facility] [address] [place] [address] [phone] from Last 3 Months or Most Recently Relevant to Health Maintenance Insurance MEDICARE [facility] Care Teams Cap Cutter Relationship Specialty Start Date End Date Mathieu Varela MD [address] [place] [phone] PCP - General Internal Medicine 07/06/13
--- OUTSIDE RECORDS SUMMARY | 2024-05-15 12:28 | XMS_ITS | Encounter Summary ---
Author Organization [employer] [facility] Address [address] [place] [address] [address] [place] [address] Care Team Providers Care Planting Machine Operator Name Role Phone Mathieu Varela MD Primary Care Provider Reason for Visit * Reason Comments Med Refill Encounter Details Date Type Department Care Team (Late st Contact Info) Description 11/23/2022 Refill [facility] MED & PEDS [address] [place] [address] Mathieu Varela MD [address] [place] [address] Recurrent major depressive disorder, in partial remission [...] 2:30 PM EDT Office Visit [facility] MED & PEDS [address] [place] [address] Mathieu Varela MD [address] [place] [address] documented as of this encounter Visit Diagnoses Diagnosis Recurrent major depressive disorder, in partial remission (CMS/HCC) documented in this encounter Care Teams Planting Machine Operator Relationship Specialty Start Date End Date Mathieu Varela MD [address] [place] [address] PCP - General Internal Medicine 07/06/13 documented as of this encounter
--- OUTSIDE RECORDS SUMMARY | 2024-05-15 12:28 | XMS_ITS | Encounter Summary ---
Author Organization [employer] Address [address] [facility] 7t [place] [address] Care Team Providers Care Carpenter Ship Name Role Phone Mathieu Varela MD Primary Care Provider Reason for Visit * Reason Comments Med Refill Encounter Details Date Type Department Care Team (Late st Contact Info) Description 03/31/2024 Refill [facility] MED & PEDS [address] [place], [place] [phone] Mathieu Varela MD [address] [place], [place] [phone] Other male erectile dysfunction Social History Tobacco [...] Description 07/06/2024 2:30 PM EDT Office Visit [facility] MED & PEDS [address] [place] [address] Mathieu Varela MD [address] [place] [address] documented as of this encounter Visit Diagnoses Diagnosis Other male erectile dysfunction documented in this encounter Additional Health Concerns Assessment Noted Time PHQ-9 Depression Total Score: 6 09/04/19 24 10:46 AM EDT documented as of this encounter Care Teams Carpenter Ship Relationship Specialty Start Date End Date Mathieu Varela MD [address] [place] [address] PCP - General Internal Medicine 07/06/13 documented as of this encounter
--- OUTSIDE RECORDS SUMMARY | 2024-05-15 12:28 | XMS_ITS | Encounter Summary ---
Author Organization [employer] Address [address] [facility] [address] 7[address] [place] [address] Care Team Providers Care Database Administration Manager Name Role Phone Mathieu Varela MD Primary Care Provider Reason for Visit * Reason Comments Med Refill Encounter Details Date Type Department Care Team (Late st Contact Info) Description 04/28/2024 Refill [facility] MED & PEDS [address] [place], [place] [phone] Sonam Quijano MD [address] [place], [place] [phone] Essential (primary) hypertension Social History Tobacco Use [...] t he electric, gas, oil or water [employer] threatened to shut off services in your [...] Description 07/06/2024 2:30 PM EDT Office Visit [facility] MED & PEDS [address] [place] [address] Mathieu Varela MD [address] [place] [address] documented as of this encounter Visit Diagnoses Diagnosis Essential (primary) hypertension Unspecified essential hypertension documented in this encounter Additional Health Concerns Assessment Noted Time PHQ-9 Depression Total Score: 6 09/04/19 24 10:46 AM EDT documented as of this encounter Care Teams Database Administration Manager Relationship Specialty Start Date End Date Mathieu Varela MD [address] [place] [address] PCP - General Internal Medicine 07/06/13 documented as of this encounter
--- OUTSIDE RECORDS SUMMARY | 2024-05-15 12:28 | XMS_ITS | Encounter Summary ---
Author Organization [employer] [facility] Address [address] [place] [address] [address] [place] [address] Care Team Providers Care Stained Glass Glazier Helper Name Role Phone Mathieu Varela MD Primary Care Provider Reason for Visit * Reason Comments Med Refill Encounter Details Date Type Department Care Team (Late Contact Info) Description 04/28/2023 Refill [facility] MED & PEDS [address] [place] [address] Mathieu Varela MD [address] [place] [address] Psoriasiform dermatitis Social History Tobacco Use Types [...] Description 07/06/2024 2:30 PM EDT Office Visit [facility] MED & PEDS [address] [place] [address] Mathieu Varela MD [address] [place] [address] documented as of this encounter Visit Diagnoses Diagnosis Psoriasiform dermatitis Other psoriasis and similar disorders documented in this encounter Care Teams Stained Glass Glazier Helper Relationship Specialty Start Date End Date Mathieu Varela MD [address] [place] [address] PCP - General Internal Medicine 07/06/13 documented as of this encounter
--- OUTSIDE RECORDS SUMMARY | 2024-05-15 12:28 | XMS_ITS | Encounter Summary ---
Author Organization [employer] [facility] Address [address] [facility] 7 [place] [address] Care Team Providers Care Student Services Coordinator Name Role Phone Mathieu Varela MD Primary Care Provider Encounter Details Date Type Department Care Team (Late Contact Info) Description 01/09/2023 Orders Only [facility] MED & PEDS [address] [place] [address] Mathieu Varela MD [address] [place] [address] Recurrent major depressive disorder, in partial remission [...] [facility] [address] [place] [address] Mathieu Varela MD [address] [place] [address] documented as of this encounter Visit Diagnoses Diagnosis Recurrent major depressive disorder, in partial remission (CMS/HCC) documented in this encounter Care Teams Student Services Coordinator Relationship Specialty Start Date End Date Mathieu Varela MD [address] [employer], [place] [phone] PCP - General Internal Medicine 07/06/13 documented as of this encounter
== END 2024-05-15 10:58 | disposition home or self-care (01) ==
LOC: HO.HPS 10:26
PROVIDERS: PCP Internal Medicine; Referring Provider Internal Medicine; Visit Provider Physician Assistant Medical
DX: Z87.891 Personal history of nicotine dependence (principal)
CPT/HCPCS: G0296

== ENCOUNTER 2024-05-15 10:47 | Outpatient (REF) | payer MEDICARE, MEDICAID, SELFPAY ==
--- NOTE | ~2024-05-15 | CT_ITS ---
CLINICAL HISTORY: Z87.891 - Personal history of nicotine dependence CT lung cancer screening (LDCT) Comparison: None Technique: Axial CT images of the chest using low-dose technique. Referring provider counseled the patient on shared decision-making for LDCT screening. Additional counseling was provided on smoking cessation. Effective radiation dose total: DLP 50.3 mGycm, CTDIvol 1.5 mGy. Findings: Lung: Moderate centrilobular emphysema. 3.4 mm nodule of the right middle lobe series 6, image 64. Coronary artery calcifications: Mild Limited upper abdomen: Unremarkable Other: None Impression: LungRADS 2 - Benign Appearance: Continue annual screening with low dose Chest CT in 12 months. ##L2# Category 1: Normal; continue annual screening Category 2: Benign appearance or behavior, continue annual screening Category 3: Probably benign, [address] recommended Category 4A: Suspicious, [address] recommended; may consider PET/CT Category 4B: Suspicious, Additional diagnostics and/or tissue sampling recommended Category 4X: Suspicious, Additional diagnostics and/or tissue sampling recommended Category 0: Recalls (incomplete screen due to Incomplete coverage, Noise, Respiratory motion, Expiration, Obscured by acute abnormality) This document has been electronically signed by: Sydney Blank MD on 05/18/2024 14:01:41
--- OUTSIDE RECORDS SUMMARY | 2024-05-15 13:04 | XMS_ITS | Encounter Summary ---
Author Organization [employer] [facility] Address [address] [facility] 7 [place] [address] Care Team Providers Care Clinic Charge Nurse Name Role Phone Mathieu Varela MD Primary Care Provider Encounter Details Date Type Department Care Team (Late Contact Info) Description 01/09/2023 Orders Only [facility] MED & PEDS [address] [place] [address] Mathieu Varela MD 505 [place] [address] Recurrent major depressive disorder, in partial remission [...] Description 07/06/2024 2:30 PM EDT Office Visit [facility]EDS [address] [place] [address] Mathieu Varela MD 505 [place] [address] documented as of this encounter Visit Diagnoses Diagnosis Recurrent major depressive disorder, in partial remission (CMS/HCC) documented in this encounter Care Teams Clinic Charge Nurse Relationship Specialty Start Date End Date Mathieu Varela MD 505 [place], [place] [phone] PCP - General Internal Medicine 07/06/13 documented as of this encounter
--- OUTSIDE RECORDS SUMMARY | 2024-05-15 13:04 | XMS_ITS | Encounter Summary ---
Author Organization [employer] [facility] Address [address] [place] [address] [facility] [place] [address] Care Team Providers Care Casing Wringer Operator Name Role Phone Mathieu Varela MD Primary Care Provider [phone] Reason for Visit * Reason Comments Med Refill Encounter Details Date Type Department Care Team (Late st Contact Info) Description 09/19/2022 Refill [facility] MED & PEDS [address] [place] [address] Mathieu Varela MD 505 [place] [address] Recurrent major depressive disorder, in partial remission [...] 2:30 PM EDT Office Visit [facility] MED [facility]ED[facility] [address] [place] [address] Mathieu Varela MD 505 [place] [address] documented as of this encounter Visit Diagnoses Diagnosis Recurrent major depressive disorder, in partial remission (CMS/HCC) documented in this encounter Care Teams Casing Wringer Operator Relationship Specialty Start Date End Date Mathieu Varela MD 505 [place] [address] PCP - General Internal Medicine 07/06/13 documented as of this encounter
--- OUTSIDE RECORDS SUMMARY | 2024-05-15 13:04 | XMS_ITS | Encounter Summary ---
Author Organization [employer] [facility] Address [address] [facility] 7t [place] [address] Care Team Providers Care Fish Butcher Name Role Phone Mathieu Varela MD Primary Care Provider Encounter Details Date Type Department Care Team (Late st Contact Info) Description 11/09/2022 Orders Only [facility] MED & PEDS 505 [place] [address] Nikki Guadalupe LPN Social History Tobacco Use [...] PM EDT Office Visit [facility] MED [facility] PEDS 505 [place] [address] Mathieu Varela MD 505 [place] [address] documented as of this encounter Visit Diagnoses Not on filedocumented in this encounter Care Teams Fish Butcher Relationship Specialty Start Date End Date Mathieu Varela MD [address] [place] [address] PCP - General Internal Medicine 07/06/13 documented as of this encounter
--- OUTSIDE RECORDS SUMMARY | 2024-05-15 13:04 | XMS_ITS | Encounter Summary ---
Author Organization [facility] Address [address] [place] [address] [facility] [place] [address] Care Team Providers Care Behavioral Services Tech Name Role Phone Mathieu Varela MD Primary Care Provider [phone] Reason for Visit * Reason Comments Med Refill Encounter Details Date Type Department Care Team (Late st Contact Info) Description 11/23/2022 Refill [facility] MED & PEDS 505 [place] [address] Mathieu Varela MD 505 [place] [address] Recurrent major depressive disorder, in partial remission [...] Description 07/06/2024 2:30 PM EDT Office Visit [facility] MED & PEDS 505 [place] [address] Mathieu Varela MD [address] [place] [address] documented as of this encounter Visit Diagnoses Diagnosis Recurrent major depressive disorder, in partial remission (CMS/HCC) documented in this encounter Care Teams Behavioral Services Tech Relationship Specialty Start Date End Date Mathieu Varela MD [address] [place] [address] PCP - General Internal Medicine 07/06/13 documented as of this encounter
--- OUTSIDE RECORDS SUMMARY | 2024-05-15 13:04 | XMS_ITS | Encounter Summary ---
Author Organization [employer] [facility] Address [address] [place] [address] [facility] [place] [address] Care Team Providers Care Kiss Machine Operator Name Role Phone Mathieu Varela MD Primary Care Provider Reason for Visit * Reason Comments Med Refill Encounter Details Date Type Department Care Team (Late Contact Info) Description 04/28/2023 Refill [facility] MED & PEDS [address] [place] [address] Mathieu Varela MD 505 [place] [address] Psoriasiform dermatitis Social History Tobacco Use Types [...] [facility] [address] [place] [address] Mathieu Varela MD 505 [place] [address] documented as of this encounter Visit Diagnoses Diagnosis Psoriasiform dermatitis Other psoriasis and similar disorders documented in this encounter Care Teams Kiss Machine Operator Relationship Specialty Start Date End Date Mathieu Varela MD 505 [place] [address] PCP - General Internal Medicine 07/06/13 documented as of this encounter
--- OUTSIDE RECORDS SUMMARY | 2024-05-15 13:04 | XMS_ITS | Encounter Summary ---
Author Organization [facility], Address [address] [place] [address] Phone Care Team Providers Care Buckle Stapler Name Role Phone Mathieu Varela MD Primary Care Provider [phone] Encounter Details Date Type Department Care Team (Late st Contact Info) Description 10/05/2019 Orders Only [facility] [address] [place] [phone] Yulia Rosado MD Chronic kidney disease stage [...] disorder documented in this encounter Care Teams Buckle Stapler Relationship Specialty Start Date End Date Mathieu Varela MD PCP - General 12/30/18 documented as of this encounter
--- OUTSIDE RECORDS SUMMARY | 2024-05-15 13:04 | XMS_ITS | Encounter Summary ---
Author Organization [employer] [facility] Address [address] [facility] 7t [place] [address] Care Team Providers Care Furniture Removalist Name Role Phone Mathieu Varela MD Primary Care Provider [phone] Encounter Details Date Type Department Care Team (Late st Contact Info) Description 08/14/2022 Orders Only [facility] MED & PEDS [address] [place] [address] Susanne Cruz LPN Social History Tobacco Use [...] Description 07/06/2024 2:30 PM EDT Office Visit [facility] [address] [place] [address] Mathieu Varela MD 505 [place] [address] documented as of this encounter Visit Diagnoses Not on filedocumented in this encounter Care Teams Furniture Removalist Relationship Specialty Start Date End Date Mathieu Varela MD [address] [place] [address] PCP - General Internal Medicine 07/06/13 documented as of this encounter
--- OUTSIDE RECORDS SUMMARY | 2024-05-15 13:04 | XMS_ITS | Encounter Summary ---
Author Organization [employer] [facility] Address [address] [facility] 7t [place] [address] Care Team Providers Care Director Home Name Role Phone Mathieu Varela MD Primary Care Provider [phone] Encounter Details Date Type Department Care Team (Late st Contact Info) Description 07/24/2022 Orders Only [facility] MED & PEDS [address] [place] [address] Amarilys Ewing LPN Social History Tobacco Use [...] Description 07/06/2024 2:30 PM EDT Office Visit [facility] MED & PEDS 505 [place] [address] Mathieu Varela MD 505 [place] [address] documented as of this encounter Visit Diagnoses Not on filedocumented in this encounter Care Teams Director Home Relationship Specialty Start Date End Date Mathieu Varela MD 505 [place] [address] PCP - General Internal Medicine 07/06/13 documented as of this encounter
--- OUTSIDE RECORDS SUMMARY | 2024-05-15 13:04 | XMS_ITS | Encounter Summary ---
Author Organization [facility] Address [address] [place] [address] Phone Care Team Providers Care Residential Subcontractor Name Role Phone Mathieu Varela MD Primary Care Provider [phone] Encounter Details Date Type Department Care Team (Late st Contact Info) Description 11/07/2021 Documentation Only [facility], [address] [place] [address] [...] on filedocumented in this encounter Care Teams Residential Subcontractor Relationship Specialty Start Date End Date Mathieu Varela MD PCP - General 12/30/18 documented as of this encounter
--- OUTSIDE RECORDS SUMMARY | 2024-05-15 13:05 | XMS_ITS | Encounter Summary ---
Author Organization [employer] Address [address] [facility] 7t [place] [address] Care Team Providers Care Body Work Auto Trimmer Name Role Phone Mathieu Varela MD Primary Care Provider Reason for Visit * Reason Comments Med Refill Encounter Details Date Type Department Care Team (Late st Contact Info) Description 03/31/2024 Refill [facility] MED & PEDS [address] [place], [place] [phone] Mathieu Varela MD [address] [place], [place] [phone] Other male erectile dysfunction Social History Tobacco [...] Description 07/06/2024 2:30 PM EDT Office Visit [facility] & PEDS [address] [place] [address] Mathieu Varela MD [address] [place] [address] documented as of this encounter Visit Diagnoses Diagnosis Other male erectile dysfunction documented in this encounter Additional Health Concerns Assessment Noted Time PHQ-9 Depression Total Score: 6 09/04/19 24 10:46 AM EDT documented as of this encounter Care Teams Body Work Auto Trimmer Relationship Specialty Start Date End Date Mathieu Varela MD [address] [place] [address] PCP - General Internal Medicine 07/06/13 documented as of this encounter
--- OUTSIDE RECORDS SUMMARY | 2024-05-15 13:05 | XMS_ITS | Encounter Summary ---
Author Organization [employer] Address [address] [facility] 7t [place] [address] Care Team Providers Care Alteration Worker Name Role Phone Mathieu Varela MD Primary Care Provider [phone] Reason for Visit * Reason Onset Date Comments Appointment Request 04/07/2024 Encounter Details Date Type Department Care Team (Late st Contact Info) Description 04/07/2024 Telephone [facility] MEDICINE [address] [place] [address] Mathieu Varela MD [address] [place], [place] [phone] Appointment Request Social History Tobacco Use Types [...] or over the phone. Contact Pt at [phone] documented in this encounter Plan of Treatment Upcoming Encounters Date Type Department Care Team (Late st Contact Info) Description 07/06/2024 2:30 PM EDT Office Visit [facility] MED & PEDS 505 [place] [address] Mathieu Varela MD 505 [place] [address] documented as of this encounter Visit Diagnoses Not on filedocumented in this encounter Additional Health Concerns Assessment Noted Time PHQ-9 Depression Total Score: 6 09/04/19 24 10:46 AM EDT documented as of this encounter Care Teams Alteration Worker Relationship Specialty Start Date End Date Mathieu Varela MD [address] [place] [address] PCP - General Internal Medicine 07/06/13 documented as of this encounter
--- OUTSIDE RECORDS SUMMARY | 2024-05-15 13:05 | XMS_ITS | Encounter Summary ---
Author Organization [employer] Address [address] 7t [place] [address] Care Team Providers Care Agile Qa Tester Name Role Phone Mathieu Varela MD Primary Care Provider Reason for Visit * Reason Comments Med Refill Encounter Details Date Type Department Care Team (Late st Contact Info) Description 05/02/2024 Refill [facility] MED & PEDS [address] [place], [place] [phone] Sonam Quijano MD [address] [place] [address] Social History Tobacco Use Types Packs/Day Years [...] t he electric, gas, oil or water [employer] threatened to shut off services in your [...] Description 07/06/2024 2:30 PM EDT Office Visit [facility] MED & PEDS 505 [place] [address] Mathieu Varela MD [address] [place] [address] documented as of this encounter Visit Diagnoses Not on filedocumented in this encounter Additional Health Concerns Assessment Noted Time PHQ-9 Depression Total Score: 6 09/04/19 24 10:46 AM EDT documented as of this encounter Care Teams Agile Qa Tester Relationship Specialty Start Date End Date Mathieu Varela MD [address] [place] [address] PCP - General Internal Medicine 07/06/13 documented as of this encounter
--- OUTSIDE RECORDS SUMMARY | 2024-05-15 13:05 | XMS_ITS | Encounter Summary ---
Author Organization [employer] [facility] Address [address] [place] [address] [address] [address] Care Team Providers Care Chrome Polisher Name Role Phone Mathieu Varela MD Primary Care Provider [phone] Reason for Visit * Reason Comments Med Refill Encounter Details Date Type Department Care Team (Late st Contact Info) Description 12/04/2022 Refill [facility] MED & PEDS [address] [place] [address] Mathieu Varela MD [address] [place] [address] Social History Tobacco Use Types Packs/Day Years [...] Description 07/06/2024 2:30 PM EDT Office Visit [facility] MED & PEDS [address] [place] [address] Mathieu Varela MD [address] [place] [address] documented as of this encounter Visit Diagnoses Not on filedocumented in this encounter Care Teams Chrome Polisher Relationship Specialty Start Date End Date Mathieu Varela MD [address] [place] [address] PCP - General Internal Medicine 07/06/13 documented as of this encounter
--- OUTSIDE RECORDS SUMMARY | 2024-05-15 13:05 | XMS_ITS | Clinical Summary ---
Author Organization [facility], Address [address] [place] [address] [place] [address] Phone Care Team Providers Care Pathology Secretary Name Role Phone Mathieu Varlea MD Primary Care Provider [phone] Allergies No known active allergies Medications buPROPion [...] this topic Insurance MEDICAID [place] Care Teams Pathology Secretary Relationship Specialty Start Date End Date Mathieu Varela MD PCP - General 12/30/18
--- OUTSIDE RECORDS SUMMARY | 2024-05-15 13:05 | XMS_ITS | Encounter Summary ---
Author Organization [employer] Address [address] [facility] 7t [place] [address] Care Team Providers Care Coater Name Role Phone Mathieu Varela MD Primary Care Provider Reason for Visit * Reason Comments Med Refill Encounter Details Date Type Department Care Team (Late st Contact Info) Description 04/30/2024 Refill [facility] [address] [place], [place] [phone] Mathieu Varela MD [address] [place], [place] [phone] Essential (primary) hypertension Social History Tobacco Use [...] Description 07/06/2024 2:30 PM EDT Office Visit [facility] MED & PEDS [address] [place] [address] Mathieu Varela MD [address] [place] [address] documented as of this encounter Visit Diagnoses Diagnosis Essential (primary) hypertension Unspecified essential hypertension documented in this encounter Additional Health Concerns Assessment Noted Time PHQ-9 Depression Total Score: 6 09/04/19 24 10:46 AM EDT documented as of this encounter Care Teams Coater Relationship Specialty Start Date End Date Mathieu Varela MD [address] [place] [address] PCP - General Internal Medicine 07/06/13 documented as of this encounter
--- OUTSIDE RECORDS SUMMARY | 2024-05-15 13:05 | XMS_ITS | Clinical Summary ---
Author Organization [employer] Address [address] [facility] 7t [place] [address] Care Team Providers Care Systems Analyst Name Role Phone Mathieu Varela MD [...] Type Department Care Team Description 05/02/2024 Refill [facility] MED & PEDS [address] [place] [address] Sonam Quijano MD 04/30/2024 Refill [facility] MED & PEDS [address] [place] [address] Mathieu Varela MD Essential (primary) hypertension 04/28/2024 Refill [facility] MED & PEDS [address] [place] [address] Snoam Quijano MD Essential (primary) hypertension 04/07/2024 Telephone [facility] MEDICINE [address] [place] [address] Mathieu Varela MD Appointment Request 04/01/2024 Orders Only GENERIC EXTERNAL DATA DEPARTMENT Provider, Generic External Data 03/31/2024 2:00 PM EST Office Visit [facility] MED & PEDS [address] [place] [address] Mathieu Varela MD Benign hypertension (Primary Dx); Other male erectile dysfunction; Other male erectile dysfunction; Tinnitus of both ears 03/31/2024 Refill [facility] MED & PEDS [address] [place] [address] Mathieu Varela MD Other male erectile dysfunction 03/31/2024 Travel 03/02/2024 Refill [facility] MED & PEDS 505 [place] [address] Mathieu Varela MD Recurrent major depressive disorder, in partial remission ([facility]/HCC) 03/02/2024 Refill [facility] MED & PEDS [address] [facility] [place] [address] Mathieu Varela MD 02/28/2024 Refill [facility] MED [facility]S 505 [facility] [place] [address] Mathieu Varela MD Paresthesias 02/18/2024 11:15 AM EST Office Visit [facility] MED & P[facility]S 505 [facility] [place] [address] Mathieu Varela MD Other male erectile dysfunction [...] Upcoming Encounters Date Type Department Care Team ([facility] st Contact Info) Description 07/06/2024 2:30 PM EDT Office Visit [facility] MED & PEDS [address] [place] [address] Mathieu Varela MD [address] [place] [address] Health Maintenance Due Date Last Done Comments [...] 4 AM EST 04/01/2024 1:13 PM EST [facility] - 04/02/2024 12:58 PM EST ----- ------- Name: Shadi Elilott ?Age/Sex: 63/M ? : 1960 Unit#: [id number] ?? Attend Dr: Avelina Swenson MD ?Re04/01/24 ?Status: DEP SDC ? Location: HO.SSS ?Disch: ? ----- ------- SPEC : [id number] ?RECD: 04/01/24 ? STATUS: ??SOUT ? REQ NUM: [id number] ? CAITLIN: 04/01/24 ? SUBM DR: Avelina [...] Elliott ?Age/Sex: 63/M ? : 1960 Unit#: [id number] ?? Attend Dr: Avelina Swenson MD ?Re04/01/24 ?Status: DEP SDC ? Location: HO.SSS ?Disch: ? ----- ------- SPEC : [id number] ?RECD: 04/01/24 ? STATUS: ??SOUT ? REQ NUM: [id number] ? CAITLIN: 04/01/24 ? SUBM DR: Avelina [...] Copies To: ?? Mathieu Varela MD ?? [facility] ?? [address] ?? [place] [address] ?? [phone] ?? Avelina Swenson MD ?? [facility] ?? [address] ?? [place] [address] ?? [phone] ----- ------- Signed (signature on file) Arlin Barragan 04/02/24 1258 ? ----- ------- ? END OF REPORT ? us Generic External Data Provider LAB BLOOD ORDERAB LES Final Result [facility] [address] [facility] [place] [address] [phone] * Hepatitis C Antibody with Reflex to HCV, RNA, Quantitative, Real-Time PCR (07/01/2023 10:23 AM EDT) Hepatitis C Antibody Nonreactive Nonreactive [facility] Comment:Antibodies to HCV no t detected; does not exclude early acuteHCV infection. Blood Venous blood specimen / Unknown 07/01/2023 10:23 AM EDT 07/01/2023 2:07 PM EDT us Mathieu Varela MD LAB BLOOD ORDERABLES Final Result Performing Organization Address [facility]/ZIP Co de Phone Number [facility] [address] [place] [address] [phone] * (ABNORMAL) Lipid Panel, Standard (07/01/2023 10:23 AM EDT) Triglycerides 74 <150 mg/dL [facility] Comment:Desirable Triglyceri de: less than 150 mg/dLBorderline High Triglyceride 150-199 mg/dLHigh Triglyceride: 200-499 mg/dLVery High Triglyceride: greater than or equal to 5OO mg/dL Cholesterol 147 <200 mg/dL [facility] Comment:Desirable Cholestero l: less than 200 mg/dLBorderline High Cholesterol: 200-239 mg/dLHigh Cholesterol: greater than 239 mg/dL LDL Cholesterol Calculated 95 <100 mg/dL [facility] Comment:Desirable LDL: less than 100 mg/dLNear Optimal/Above Optimal LDL: 110- 129 mg/dLBorderline High LDL: 130-159 mg/dLHigh LDL: 160-189 mg/dLVery High LDL: greater than or equal to 190 mg/dL HDL Cholesterol 38(L) >40 mg/dL [facility] Comment:Desirable HDL: great er than 40 mg/dL Note: This HDL assay may give artificially low results in patients with liver disease. Blood Venous blood specimen / Unknown 07/01/2023 10:23 AM EDT 07/01/2023 2:07 PM EDT us Mathieu Varela MD LAB BLOOD ORDERABLES Final Result Performing Organization Address City/[facility]/ZIP Co de Phone Number [facility] [address] [place] [address] [phone] from Last 3 Months or Most Recently Relevant to Health Maintenance Insurance MEDICARE [facility] Care Teams Systems Analyst Relationship Specialty Start Date End Date Mathieu Varela MD [address] [place] [phone] PCP - General Internal Medicine 07/06/13
--- OUTSIDE RECORDS SUMMARY | 2024-05-15 13:05 | XMS_ITS | Encounter Summary ---
Author Organization [employer] Address [address] [facility] [facility] 7[address] [place] [address] Care Team Providers Care Workforce Management Consultant Name Role Phone Mathieu Varela MD Primary Care Provider Reason for Visit * Reason Comments Med Refill Encounter Details Date Type Department Care Team (Late st Contact Info) Description 04/28/2024 Refill [facility] MED & PEDS [address] [place], [place] [phone] Sonam Quijano MD 505 [place], [place] [phone] Essential (primary) hypertension Social History Tobacco Use [...] t he electric, gas, oil or water [employer] threatened to shut off services in your [...] Description 07/06/2024 2:30 PM EDT Office Visit [facility] MED & PEDS [address] [place] [address] Mathieu Varela MD 505 [place] [address] documented as of this encounter Visit Diagnoses Diagnosis Essential (primary) hypertension Unspecified essential hypertension documented in this encounter Additional Health Concerns Assessment Noted Time PHQ-9 Depression Total Score: 6 09/04/19 24 10:46 AM EDT documented as of this encounter Care Teams Workforce Management Consultant Relationship Specialty Start Date End Date Mathieu Varela MD [address] [place] [address] PCP - General Internal Medicine 07/06/13 documented as of this encounter
--- OUTSIDE RECORDS SUMMARY | 2024-05-15 13:05 | XMS_ITS | Encounter Summary ---
Author Organization [employer] Address [address] [facility] 7t [place] [address] Care Team Providers Care Date Night Caregiver Name Role Phone Mathieu Varela MD Primary Care Provider Reason for Visit * Reason Onset Date Comments Call Back Request 06/20/2023 Encounter Details Date Type Department Care Team ([facility] st Contact Info) Description 06/20/2023 Telephone [facility] MED & PEDS [address] [place] [address] Mathieu Varela MD [address] [place] [address] Call Back Request Social History Tobacco Use [...] Informed message would be relayed to their staffing operations manager to relay message to PAR. Pt agrees to f/u on 06/28/23. * Telephone Encounter - Corazon Jacinto - 06/20/2023 3:04 PM EDT Tc from pt requesting to speak with a nurse in regards to refusal on refill for hydrOXYzine HCl (Atarax) 25 MG tablet Please contact pt at [phone] documented in this encounter Plan of Treatment Upcoming Encounters Date Type Department Care Team (Late st Contact Info) Description 07/06/2024 2:30 PM EDT Office Visit [facility]S [address] [place] [address] Mathieu Varela MD [address] [place] [address] documented as of this encounter Visit Diagnoses Not on filedocumented in this encounter Care Teams Date Night Caregiver Relationship Specialty Start Date End Date Mathieu Varela MD [address] [place] [address] PCP - General Internal Medicine 07/06/13 documented as of this encounter
== END 2024-05-15 10:48 | disposition home or self-care (01) ==
LOC: HO.CT 10:47
PROVIDERS: PCP Internal Medicine; Visit Provider Physician Assistant Medical
DX: Z12.2 Encounter for screening for malignant neoplasm of respiratory organs (principal); Z87.891 Personal history of nicotine dependence
CPT/HCPCS: 71271; G0296

== ENCOUNTER → 2024-05-15 10:49 | Outpatient (BNV) | payer MEDICARE, MEDICAID, SELFPAY | PROVIDERS: PCP Internal Medicine; Visit Provider Nuclear Medicine | DX: Z87.891 Personal history of nicotine dependence (principal) | CPT/HCPCS: 71271 ==

== ENCOUNTER → 2024-10-01 12:44 | Outpatient (REF) | payer MEDICARE, MEDICAID, SELFPAY ==
--- OUTSIDE RECORDS SUMMARY | 2024-10-01 12:47 | XMS_ITS | Patient Health Record ---
Author Organization [facility] [employer] [facility] Address [address] [place] [address] Care Team Providers Care Linderman Machine Operator Name Role Phone Mathieu Varela M.D. Primary Care Provider Un available Kike Orellana Unavailable [phone] Reason For Referral No Information Plan Of Treatment No Information Insurance Providers Payer Name Payer Address Payer Phone Subscriber Number Group Number Insured Name Patient Relationship to Insured Coverage Start Date Coverage End Date MEDICAID OF [facility] [address] [place] [address] [id number] WILL ROMEO Self - patient is the insured
--- OUTSIDE RECORDS SUMMARY | 2024-10-01 12:47 | XMS_ITS | Encounter Summary ---
Author Organization [facility], Address [address] [place] [address] Phone Care Team Providers Care Vice President Integrated Name Role Phone Mathieu Varela MD Primary Care Provider [phone] Encounter Details Date Type Department Care Team (Late st Contact Info) Description 11/07/2021 Documentation Only [facility], [address] [place] [address] Rivka Ozuna PA [address] [place] [address] Social History Tobacco Use Types Packs/Day Years [...] in this encounter Care Teams Vice President Integrated Relationship Specialty Start Date End Date Mathieu Varela MD PCP - General 12/30/18 documented as of this encounter
--- OUTSIDE RECORDS SUMMARY | 2024-10-01 12:47 | XMS_ITS | Encounter Summary ---
Author Organization [employer] Address [address] [facility] 7t [place] [address] Care Team Providers Care Ferryboat Helper Name Role Phone Mathieu Varela MD Primary Care Provider Reason for Visit * Reason Comments Med Refill Encounter Details Date Type Department Care Team (Late st Contact Info) Description 09/19/2022 Refill [facility] CHC MED & PEDS [address] [place], [place] [phone] Mathieu Varela MD [address] [place], [place] [phone] Recurrent major depressive disorder, in partial remission [...] (CMS/HCC) documented in this encounter Care Teams Ferryboat Helper Relationship Specialty Start Date End Date Mathieu Varela MD [address] [place] [address] PCP - General Internal Medicine 07/06/13 documented as of this encounter
--- NOTE | 2024-10-01 12:48 | HM_ITS ---
Conclusion: 1. Patient was monitored for total period of 2 days 2. Baseline was normal sinus rhythm with average heart rate of 69 beats per minute 3. No significant pauses and rare ectopy noted 4. Patient marked the counter 3 times with symptoms of shortness of breath correlating with sinus rhythm MTDD
== END ==
LOC: HO.CARD 12:44
PROVIDERS: PCP Internal Medicine; Visit Provider Internal Medicine
DX: I10 Essential (primary) hypertension (principal); R42 Dizziness and giddiness
CPT/HCPCS: 93225

== ENCOUNTER → 2024-10-01 12:48 | Outpatient (BNV) | payer MEDICARE, MEDICAID, SELFPAY | PROVIDERS: PCP Internal Medicine; Visit Provider Internal Medicine Cardiovascular Disease | DX: R06.02 Shortness of breath (principal) | CPT/HCPCS: 93227 ==

== ENCOUNTER 2024-11-16 11:58 | Outpatient (AMB) | payer MEDICARE, MEDICAID, SELFPAY ==
[2024-11-16 12:52] VITALS: BP 120/62; PULSE 63; BMI 30.6
--- NOTE | 2024-11-16 12:52 | MHC.OFFVIS ---
Vital Signs 11/16/24 12:52 Height 5 ft 9 in Weight 207 lb 3.752 oz BMI 30.6 BP 120/62 Blood Pressure Location Lt brachial Position Sitting Pulse 63 Pulse Source Monitor Intake Visit Reasons: DROP CLIPPER/Dr. Varela/Chest pain Allergies No Known Allergies (No Known Allergies*) Allergy (Verified 12/05/23 11:15) Medication List - Last Reconciled 11/16/24 by Anish Ortiz MD amitriptyline 25 mg PO BEDTIME amlodipine 5 mg PO DAILY atorvastatin (Lipitor) 20 mg PO DAILY bupropion HCl SR 150 mg PO Q12H metoprolol tartrate 12.5 mg PO BID sildenafil (Viagra) 25 mg PO DAILY PRN topiramate 50 mg PO DAILY HPI Comments Details: The patient is a 63-year-old male presenting with chest pain. The chest pain occurs primarily during physical activities such as walking or climbing stairs, and has been present for several years. The patient reports that the pain is associated with fast breathing and increased heart rate. The patient has a history of hypertension and hyperlipidemia, for which he is on medication. Per patient, he underwent a cardiac catheterization few years ago, which revealed no blockages. The patient has a history of smoking. [facility] Medical History (Updated 11/16/24 @ 13:39 by Anish Ortiz MD) CKD (chronic kidney disease) HTN (hypertension) Hypercholesteremia Tubular adenoma of colon Obesity Personal history of nicotine dependence Surgical History (Updated 05/14/24 @ 12:31 by Melanie Gill PA-C) History of cardiac cath History of colonoscopy Family History (Updated 05/15/24 @ 10:45 by Melanie Gill PA-C) Mother Ovarian cancer Father Lung cancer Brother Cancer Social History (Updated 11/16/24 @ 13:02 by Hillary Rodriguez) Alcohol intake: current Alcohol intake frequency: holidays/special occasions only Patient Tobacco Use Status: Former Tobacco user Tobacco use type: Cigarette Years Smoked: (onset 8yo, 1/2-1ppd x 50yrs, 35pyh, quit 2019) Substance Use Type: Marijuana Review of Systems Const Denies weakness ENT Reports dizziness Card Reports chest pain, Reports chest pain at rest, Reports chest pain with activity, Reports syncope, Denies rapid heart rate, Denies pedal edema, Denies edema, Denies leg edema, Reports lightheadedness, Reports palpitations, Reports dyspnea, Reports dyspnea on exertion and Denies orthopnea Resp Denies cough, Reports dyspnea and Reports dyspnea on exertion GI Denies hematochezia and Denies change in stool character Musc Denies abnormal gait, Denies muscle cramps, Denies muscle weakness, Denies numbness, Denies radiating pain into limb and Denies tingling Neuro Denies abnormal gait, Reports dizziness, Reports syncope, Denies numbness, Denies tingling and Denies weakness Endo Reports palpitations Physical Exam Vital Signs: Last Vital Signs Pulse 63 11/16/24 12:52 BP 120/62 11/16/24 12:52 BMI result Body Mass Index 30.6 Const General: comfortable and no acute distress Orientation/consciousness: patient oriented x3 HEENT Other: Unremarkable Head: Yes normal to inspection Neck Neck: Yes normal visual inspection Chest Chest palpation & inspection: normal inspection of the chest Resp Auscultation: clear to auscultation bilaterally Cardio Palpation: normal PMI Heart sounds: S1 normal heart sound present, S2 normal heart sound present, no gallops, no murmurs and no rubs GI Palpation (GI): Soft to palpation Back/Spine/Pelvis Other: unremarkable Skin General skin exam: no rashes or lesions noted Neuro General: patient oriented x3 Extrem General: Yes normal to inspection Psych Mental Status: mental status grossly normal Office Procedures EKG Details: EKG with underlying sinus rhythm at 63/Min; no ischemic changes; [place] [address]Ovvjafybnjuefwlqs, Complete Assessment & Plan Assessment & Plan (1) Precordial chest pain: Code(s): R07.2 - Precordial pain Category: Medical (2) Personal history of nicotine dependence: Comment: (onset 8yo, 1/2-1ppd x 50yrs, 35pyh, quit 2019) Code(s): Z87.891 - Personal history of nicotine dependence Category: Medical (3) HTN (hypertension): Code(s): I10 - Essential (primary) hypertension Category: Medical (4) Hypercholesteremia: Code(s): E78.00 - Pure hypercholesterolemia, unspecified Category: Medical Plan Chronic chest pains, multiple risk factors, atypical and typical components, remote catheterization with unknown findings. We will plan on getting an echocardiogram and exercise stress perfusion imaging study. Based on findings, we will plan further care. Discussion Notes I discussed with the patient the need for further evaluation of his chest pain through a cardiac ultrasound and a stress test. We also reviewed his history of hypertension and hyperlipidemia, noting that he is currently on medication for these conditions. The patient was informed about the lung mass found during screening, but no further details or actions were discussed at this time. Patient was informed and verbally consented to the use of an ambient scribe for clinic note documentation during this visit. Orders: Orders NM cardiolite stress test Today R07.2 - Precordial pain CA echo transthoracic complete Today R07.2 - Precordial pain CA stress test Today R07.2 - Precordial pain Coding Level of Care Code New Pt Level 4 (92485) Complex EM visit Add On G2211 Diagnoses Precordial chest pain R07.2 Personal history of nicotine dependence Z87.891 HTN (hypertension) I10 Hypercholesteremia E78.00 CPT Codes EKG - CPT: 83254-Dkqcclkpsqeinaxiy, Complete ([id number])
--- OUTSIDE RECORDS SUMMARY | 2024-11-16 14:41 | XMS_ITS | Encounter Summary ---
Author Organization [employer]
== END 2024-11-16 13:27 | disposition home or self-care (01) ==
LOC: HO.HCS 11:58
PROVIDERS: PCP Internal Medicine; Visit Provider Internal Medicine
DX: R07.2 Precordial pain (principal); Z87.891 Personal history of nicotine dependence; I10 Essential (primary) hypertension; E78.00 Pure hypercholesterolemia, unspecified
CPT/HCPCS: 93010; 99204; G2211

== ENCOUNTER → 2024-11-16 11:58 | Outpatient (BNVA) | payer MEDICARE, MEDICAID, SELFPAY | PROVIDERS: PCP Internal Medicine; Visit Provider Internal Medicine | DX: R07.2 Precordial pain (principal); I10 Essential (primary) hypertension; E78.00 Pure hypercholesterolemia, unspecified; Z87.891 Personal history of nicotine dependence | CPT/HCPCS: 93005; 99202 ==

== ENCOUNTER → 2024-12-21 12:21 | Outpatient (REF) | payer MEDICARE, MEDICAID, SELFPAY ==
--- NOTE | 2024-12-21 12:24 | CA_ITS ---
Transthoracic Echocardiogram Patient (Last, First, Middle): Shadi Elliott, Gender: M Date of : 1960 Age: 64 Procedure Date: 12/21/2024 Procedure Type: Transthoracic Echocardiogram Location: OP Height: 175.26 cm Weight: 93.9 kg BSA: 2.10 m2 Heart Rate: 74 bpm BP: 122 / 64 mmHg Sfdc Developer: SB Referring MD: Anish Ortiz MD Symptoms: R07.2 - Precordial pain Study Quality: Adequate ECG Rhythm: Sinus Conclusions: - The left ventricular systolic function is normal. The calculated ejection fraction is 61% by biplane method. - There is mild aortic valve regurgitation. Findings Left Ventricle Normal left ventricular cavity size. There is normal left ventricular wall thickness. The left ventricular systolic function is normal. The calculated ejection fraction is 61% by biplane method. There is no evidence of regional wall motion abnormalities. Diastolic function is normal for age. Right Ventricle Normal right ventricular cavity size and systolic function. Atria Both atria are normal in size. Aortic Valve There is a normal trileaflet aortic valve. There is no aortic valve stenosis. There is mild aortic valve regurgitation. Mitral Valve The mitral valve appears normal. There is no mitral valve regurgitation. There is no mitral valve stenosis. Pulmonic Valve The pulmonic valve is likely normal. Tricuspid Valve There is trace tricuspid valve regurgitation. There is no evidence of pulmonary hypertension. Great Vessels The asc aorta is normal in size. Venous The inferior vena cava is normal in size and collapses greater than 50% with inspiration. Pericardium/Pleural There is no evidence of pericardial effusion. Prior Study Comparison No significant change compared to prior study dated: 03/29/2016. Measurements 2D Linear Measurements IVSd: 0.97 0.6-0.9/0.6-1.0 cm LVIDd: 4.94 3.9-5.3/4.2-5.9 cm LVIDd Index: 2.35 2.4-3.2/2.2-3.1 cm/m2 LVIDs: 2.92 2.0-3.6 cm LVPWd: 0.73 0.7-1.1 cm LA Diam: 3.80 2.7-3.8/3.0-4.0 cm LAIDs Index: 1.81 1.5-2.3 cm/m2 LV Mass: 178.26 67-162/88-224 g LV Mass Index: 84.89 43-95/49-115 g/m2 LVOT Diam: 2.10 3.0+(-)1.3 cm 2D Systolic Function EF 4C: 61.70 >55% EF 2C: 59.60 >55% EF BiP: 60.50 >55% Mitral Valve MV Pk E: 0.74 MV PK A: 0.91 MV Decel Time: 230.00 E/A: 0.80 E'Lateral: 8.59 E'Medial: 7.40 E/E' Med: 10.00 E/E' Lat: 8.60 PHT: 67.00 MVA PHT: 3.28 Decel [place]: 3.20 Aortic Valve AoV Pk Dima: 1.78 AoV Mn Dima: 1.12 AoV VTI: 0.31 AoV Pk Grad: 13.00 Aov Mn Grad: 6.00 JO Cont.VTI: 2.67 AI Pk Dima: 4.35 AI [place]: 2.78 LVOT LVOT Pk Dima: 1.34 LVOT Mn Dima: 0.84 LVOT VTI: 0.24 LVOT Pk Grad: 7.00 LVOT Mn Grad: 4.00 LVOT Diam: 2.10 LVOT Area: 3.46 Diastolic Function MV Pk E: 0.74 MV Pk A: 0.91 E/A: 0.80 E'Medial: 7.40 E/E' Med: 10.00 E' Laterial: 8.59 E/E' Lat: 8.60 Right Ventricle TAPSE (mm): 23.00 TVS' Dima: 14.70 Tricuspid Valve TR Pk Dima: 2.62 TR Pk Grad: 27.00 RA Press: 3.00 RVSP: 30.00 Great Vessels Aorta Sinus of Valsalva: 3.40 2.0-3.5 cm Ao Asc: 3.40 2.1-3.4 cm Pulmonary Veins Pulm Vein S/D 1.30 Pulmonary Valve PV Pk Dima: 1.06 Peak PV Grad: 4.00 Updated in Other Vendor System with Status of Final Anish Ortiz MD electronically signed on 12/22/2024 3:47:12 PM with status of Final
--- OUTSIDE RECORDS SUMMARY | 2024-12-21 15:42 | XMS_ITS | Encounter Summary ---
Author Organization [employer] Address [address] [facility] 7t [place] [address] Care Team Providers Care Sign Erector Name Role Phone Mathieu Varela MD Primary Care Provider Reason for Visit * Reason Comments Med Refill Encounter Details Date Type Department Care Team (Late st Contact Info) Description 11/23/2022 Refill [facility] CHC MED & PEDS [address] [place], [place] [phone] Mathieu Varela MD [address] [place], [place] [phone] Recurrent major depressive disorder, in partial remission [...] (CMS/HCC) documented in this encounter Care Teams Sign Erector Relationship Specialty Start Date End Date Mathieu Varela MD [address] [place] [address] PCP - General Internal Medicine 07/06/13 documented as of this encounter
--- OUTSIDE RECORDS SUMMARY | 2024-12-21 15:42 | XMS_ITS | Encounter Summary ---
Author Organization [employer] Address [address] [facility] 7t [place] [address] Care Team Providers Care Field Crop Farm Worker Name Role Phone Mathieu Varela MD Primary Care Provider [phone] Encounter Details Date Type Department Care Team (Late st Contact Info) Description 11/09/2022 Orders Only [facility] CHC MED & PEDS [address] [place], [place] [phone] Nikki Guadalupe LPN Social History Tobacco Use [...] on filedocumented in this encounter Care Teams Field Crop Farm Worker Relationship Specialty Start Date End Date Mathieu Varela MD [address] [place] [address] PCP - General Internal Medicine 07/06/13 documented as of this encounter
--- OUTSIDE RECORDS SUMMARY | 2024-12-21 15:42 | XMS_ITS | Encounter Summary ---
Author Organization [employer] Address [address] [facility] 7t [place] [address] Care Team Providers Care Sprinkling System Irrigator Name Role Phone Mathieu Varela MD Primary Care Provider [phone] Encounter Details Date Type Department Care Team (Late st Contact Info) Description 08/14/2022 Orders Only [facility] CHC MED & PEDS [address] [place] [address] Susanne Cruz LPN Social History Tobacco Use [...] on filedocumented in this encounter Care Teams Sprinkling System Irrigator Relationship Specialty Start Date End Date Mathieu Varela MD [address] [place] [address] PCP - General Internal Medicine 07/06/13 documented as of this encounter
--- OUTSIDE RECORDS SUMMARY | 2024-12-21 15:42 | XMS_ITS | Encounter Summary ---
Author Organization [facility], Address [address] [place] [address] Phone Care Team Providers Care Luncheonette Manager Name Role Phone Mathieu Varela MD Primary Care Provider [phone] Encounter Details Date Type Department Care Team (Late st Contact Info) Description 10/05/2019 Orders Only [facility] [address] [place] [phone] Yulia Rosado MD Chronic kidney disease stage [...] disorder documented in this encounter Care Teams Luncheonette Manager Relationship Specialty Start Date End Date Mathieu Varela MD PCP - General 12/30/18 documented as of this encounter
--- OUTSIDE RECORDS SUMMARY | 2024-12-21 15:42 | XMS_ITS | Encounter Summary ---
Author Organization [facility], Address [address] [place] [address] Phone Care Team Providers Care Mash Tub Cooker Operator Name Role Phone Mathieu Varela MD Primary Care Provider [phone] Encounter Details Date Type Department Care Team (Late st Contact Info) Description 11/07/2021 Documentation Only [facility], [address] [place] [address] Rivka Ozuna PA [address] [place] [address] Social History Tobacco Use Types [...] on filedocumented in this encounter Care Teams Mash Tub Cooker Operator Relationship Specialty Start Date End Date Mathieu Varela MD PCP - General 12/30/18 documented as of this encounter
--- OUTSIDE RECORDS SUMMARY | 2024-12-21 15:42 | XMS_ITS | Encounter Summary ---
Author Organization [employer] Address [address] [facility] 7t [place] [address] Care Team Providers Care Build And Release Manager Name Role Phone Mathieu Varela MD Primary Care Provider Encounter Details Date Type Department Care Team (Late st Contact Info) Description 07/24/2022 Orders Only [facility] CHC MED & PEDS [address] [place], [place] [phone] Amarilys Ewing LPN Social History Tobacco Use [...] on filedocumented in this encounter Care Teams Build And Release Manager Relationship Specialty Start Date End Date Mathieu Varela MD [address] [place] [address] PCP - General Internal Medicine 07/06/13 documented as of this encounter
--- OUTSIDE RECORDS SUMMARY | 2024-12-21 15:42 | XMS_ITS | Encounter Summary ---
Author Organization [employer] Address [address] [facility] 7t [place] [address] Care Team Providers Care Banquet Prep Cook Name Role Phone Mathieu Varela MD Primary Care Provider [phone] Reason for Visit * Reason Comments Med Refill Encounter Details Date Type Department Care Team (Late st Contact Info) Description 09/19/2022 Refill [facility] CHC MED & PEDS [address] [place], [place] [phone] Mathieu Varela MD [address] [place], [place] [phone] Recurrent major depressive disorder, in partial remission [...] (CMS/HCC) documented in this encounter Care Teams Banquet Prep Cook Relationship Specialty Start Date End Date Mathieu Varela MD [address] [place] [address] PCP - General Internal Medicine 07/06/13 documented as of this encounter
--- OUTSIDE RECORDS SUMMARY | 2024-12-21 15:42 | XMS_ITS | Encounter Summary ---
Author Organization [employer] Address [address] [facility] 7t [place] [address] Care Team Providers Care Manager Solar Name Role Phone Mathieu Varela MD Primary Care Provider [phone] Reason for Visit * Reason Comments Med Refill Encounter Details Date Type Department Care Team (Late st Contact Info) Description 12/04/2022 Refill [facility] MED [facility] PEDS [address] [place] [address] Mathieu Varela MD [address] [place], [place] [phone] Social History Tobacco Use Types Packs/Day Years [...] on filedocumented in this encounter Care Teams Manager Solar Relationship Specialty Start Date End Date Mathieu Varela MD [address] [place] [address] PCP - General Internal Medicine 07/06/13 documented as of this encounter
--- OUTSIDE RECORDS SUMMARY | 2024-12-21 15:42 | XMS_ITS | Clinical Summary ---
Author Organization [facility], Address [address] [place] [address] [place] [address] Phone Care Team Providers Care City Alderman Name Role Phone Mathieu Varela MD Primary Care Provider [phone] Allergies No known active allergies Medications buPROPion [...] Due Date Last Done Comments Pneumococcal Vaccine: 50+ Ye ars (1 of 2 - PCV) 1977 Colorectal Cancer Screening: Annual FOBT 12/17/2007 Colorectal Cancer Screening: Colonoscopy 12/17/2007 Colorectal Cancer Screening: Sigmoidoscopy 12/17/2007 Influenza Vaccine (#1) 2024 Hepatitis B Vaccine Aged Out No longe r eligible based on patient's age to complete this topic Insurance Medicaid [place] Care Teams City Alderman Relationship Specialty Start Date End Date Mathieu Varela MD PCP - General 12/30/18
--- OUTSIDE RECORDS SUMMARY | 2024-12-21 15:42 | XMS_ITS | Encounter Summary ---
Author Organization [employer] Address [address] [facility] 7t [place] [address] Care Team Providers Care Mold Chipper Name Role Phone Mathieu Varela MD Primary Care Provider Reason for Visit * Reason Comments Med Refill Encounter Details Date Type Department Care Team (Late st Contact Info) Description 04/28/2023 Refill [facility] MED & PEDS [address] [place] [address] Mathieu Varela MD [address] [place] [address] Psoriasiform dermatitis Social History Tobacco Use Types [...] disorders documented in this encounter Care Teams Mold Chipper Relationship Specialty Start Date End Date Mathieu Varela MD [address] [place] [address] PCP - General Internal Medicine 07/06/13 documented as of this encounter
--- OUTSIDE RECORDS SUMMARY | 2024-12-21 15:42 | XMS_ITS | Encounter Summary ---
Author Organization [employer] Address [address] [facility] 7t [place] [address] Care Team Providers Care Business Representative Name Role Phone Mathieu Varela MD Primary Care Provider Encounter Details Date Type Department Care Team (Late st Contact Info) Description 01/09/2023 Orders Only [facility] MED & PEDS [address] [place] [address] Mathieu Varela MD [address] [place] [address] Recurrent major depressive disorder, in partial remission [...] (CMS/HCC) documented in this encounter Care Teams Business Representative Relationship Specialty Start Date End Date Mathieu Varela MD [address] [place] [address] PCP - General Internal Medicine 07/06/13 documented as of this encounter
--- OUTSIDE RECORDS SUMMARY | 2024-12-21 15:43 | XMS_ITS | Encounter Summary ---
Author Organization [employer] Address [address] [facility] 7 [place] [address] Care Team Providers Care Theoretical Physics Teacher Name Role Phone Mathieu Varela MD Primary Care Provider Reason for Referral * Consultation (Routine) - Canceled Specialty Diagnoses / Procedures Referred By Kristine nino Referred To Contact Cardiology Diagnoses Palpitations Mathieu Varela MD [address] [place] [address] Phone: tel: fax: Referral ID Status Reason Start Date Expiration Date Visits Requested Visits Authorized [id number] Canceled Specialty Services Required 10/16/2024 10/16/2025 1 1 Encounter Details Date Type Department Care Team (Late st Contact Info) Description 10/16/2024 Orders Only [facility] MED & PEDS [address] [place] [address] Mathieu Varela MD [address] [place], [place] [phone] Palpitations (Primary Dx) Social History Tobacco Use Types Packs/Day Years Used Date Smoking Tobacco: Former Cigarettes 1.5 47 1 973 - 2020 Smokeless Tobacco: Never Depression Answer Date Recorded Patient Health Questionnaire-9 Score 9 09/14/2024 Patient Health Questionnaire-9 Score 9 09/14/2024 Last PHQ-9: Questionnaire Data Not on file 0 09/14/2024 Housing Stability Answer Date Recorded What is your housing situation today? I have alesean tipton 08/26/[address] you [...] Answer Date Recorded Patient Health Questionnaire-2 Score 1 09/14/2024 Internet Access Answer Date Recorded Internet Access Q1 Yes 10/25/2023 Internet Access Q2 Not on file 10/25/2023 Sex and Gender Information Value Date Recorded Sex Assigned at Male 12/25/2021 10:18 AM EDT Legal Sex Male 10:18 AM EDT Gender Identity Male 12/25/2021 10:18 AM EDT Sexual Orientation Straight 12/25/2021 10 :18 AM EDT documented as of this encounter Plan of Treatment Scheduled Referrals Name Type Priority Associated Diagnoses Order Schedule Referral to Cardiology Outpatient Referral Routine Palpitations Expected: 10/16/2024 (Approximate), Expires: 10/16/2025 documented as of this encounter Visit Diagnoses Diagnosis Palpitations- Primary documented in this encounter Additional Health Concerns Assessment Noted Time PHQ-9 Depression Total Score: 9 09/15/19 25 2:51 PM EDT documented as of this encounter Care Teams Theoretical Physics Teacher Relationship Specialty Start Date End Date Mathieu Varela MD [address] [place] [phone] PCP - General Internal Medicine 07/06/13 documented as of this encounter
--- OUTSIDE RECORDS SUMMARY | 2024-12-21 15:43 | XMS_ITS | Encounter Summary ---
Author Organization [employer] Address [address] [facility] 7t [place] [address] Care Team Providers Care Cleaning Validation Consultant Name Role Phone Mathieu Varela MD Primary Care Provider [phone] Reason for Visit * Reason Comments Med Refill Encounter Details Date Type Department Care Team (Late st Contact Info) Description 03/31/2024 Refill [facility] CHC MED & PEDS [address] [place], [place] [phone] Mathieu Varela MD [address] [place], [place] [phone] Other male erectile dysfunction Social History Tobacco [...] documented as of this encounter Care Teams Cleaning Validation Consultant Relationship Specialty Start Date End Date Mathieu Varela MD [address] [place] [address] PCP - General Internal Medicine 07/06/13 documented as of this encounter
--- OUTSIDE RECORDS SUMMARY | 2024-12-21 15:43 | XMS_ITS | Encounter Summary ---
Author Organization [employer] Address 75 [facility] 7t [place] [address] Care Team Providers Care Quality Control Chemist Name Role Phone Mathieu Varela MD Primary Care Provider Reason for Visit * Reason Onset Date Comments Call Back Request 06/20/2023 Encounter Details Date Type Department Care Team ([facility] st Contact Info) Description 06/20/2023 Telephone [facility] CHC MED & PEDS [address] [place] [address] Mathieu Varela MD [address] [place] [address] Call Back Request Social History Tobacco Use [...] Informed message would be relayed to their network architect manager to relay message to PAR. Pt agrees to f/u on 06/28/23. * Telephone Encounter - Corazon Casey - 06/20/2023 3:04 PM EDT Tc from pt requesting to speak with a nurse in regards to refusal on refill for hydrOXYzine HCl (Atarax) 25 MG tablet Please contact pt at [phone] documented in this encounter Plan of Treatment Not on file documented as of this encounter Visit Diagnoses Not on filedocumented in this encounter Care Teams Quality Control Chemist Relationship Specialty Start Date End Date Mathieu Varela MD [address] [place] [address] PCP - General Internal Medicine 07/06/13 documented as of this encounter
--- OUTSIDE RECORDS SUMMARY | 2024-12-21 15:43 | XMS_ITS | Encounter Summary ---
Author Organization [employer] Address [address] [facility] 7t [place] [address] Care Team Providers Care Wheat Farmer Name Role Phone Mathieu Varela MD Primary Care Provider Reason for Visit * Reason Onset Date Comments Appointment Request 04/07/2024 Encounter Details Date Type Department Care Team (Late st Contact Info) Description 04/07/2024 Telephone [facility] MEDICINE [address] [place] [address] Mathieu Varela MD [address] [place], [place] [phone] Appointment Request Social History Tobacco Use Types [...] or over the phone. Contact Pt at [phone] documented in this encounter Plan of Treatment Not on file documented as of this encounter Visit Diagnoses Not on filedocumented in this encounter Additional Health Concerns Assessment Noted Time PHQ-9 Depression Total Score: 6 09/04/19 10:46 AM EDT documented as of this encounter Care Teams Wheat Farmer Relationship Specialty Start Date End Date Mathieu Varela MD [address] [place] [address] PCP - General Internal Medicine 07/06/13 documented as of this encounter
--- OUTSIDE RECORDS SUMMARY | 2024-12-21 15:43 | XMS_ITS | Clinical Summary ---
Author Organization [employer] Address [address] [facility] 7t [place] [address] Care Team Providers Care Database Operator Name Role Phone Mathieu Varela MD Primary Care Provider Allergies No known active allergies Medications Multiple Vitamin (Daily Vites) tablet TAKE 1 TABLET BY MOUTH EVERY DAY 90 tablet 3 01/03/20 23 Active Multiple Vitamin (Daily-Nereida Multivitamin) tablet TAKE 1 TABLET BY MOUTH EVERY DAY 90 tablet 3 10/29/19 24 Active amLODIPine (Norvasc) 5 MG tabletIndication s:Essential (primary) hypertension TAKE 1 TABLET BY MOUTH EVERY DAY 90 tablet 3 05/01/19 25 Active sildenafil (Viagra) 50 MG tabletIndication s:Other male erectile dysfunction Take 1 tablet (50 mg) by mouth if needed each day for erectile dysfunction. 10 tablet 11 07/07/19 25 Active albuterol (ProAir HFA) 108 (90 Base) MCG/ACT inhaler inhale 2 puff by inhalation route every 6hrs as needed 09/23/19 22 Active nitroglycerin (Nitrostat) 0.[address] 1 tablet (0.4 mg) under the tongue every 5 (five) minutes if needed for chest pain. 90 tablet 1 07/07/19 25 Active metoprolol succinate XL (Toprol XL) 25 MG 24 hr tabletIndication s:Benign hypertension Take 0.5 tablets (12.5 mg) by mouth Once per day. Do not crush or chew. 15 tablet 11 09/15/19 25 026 Active atorvastatin (Lipitor) 20 MG tabletIndication s:Hypercholester olemia Take 1 tablet (20 mg) by mouth Once per day. 30 tablet 11 10/17/19 25 026 Active amitriptyline (Elavil) 25 MG tabletIndication s:Paresthesias Take 1 tablet (25 mg) by mouth at bedtime. 90 tablet 1 10/22/19 25 Active topiramate 50 MG tablet TAKE 1 TABLET BY MOUTH EVERY DAY 90 tablet 11/03/19 25 Active buPROPion SR (Wellbutrin SR) 150 MG 12 hr tabletIndication s:Recurrent major depressive disorder, in partial remission (CMS/HCC) TAKE 1 TABLET BY MOUTH EVERY 12 HOURS. DO NOT CRUSH, CHEW, OR SPLIT. 180 tablet 2 11/24/19 25 Active buPROPion SR (Wellbutrin SR) 150 MG 12 hr tabletIndication s:Recurrent major depressive disorder, in partial remission (CMS/HCC) TAKE 1 TABLET BY MOUTH EVERY 12 HOURS. DO NOT CRUSH, CHEW, OR SPLIT. 180 tablet 2 03/02/19 25 025 Discontinued Active Problems Problem Noted Date Diagnosed Date Erectile dysfunction 03/31/2024 Hypertensive disorder 03/04/2019 Stage 3b chronic kidney disease ([facility]/HCC) 2019 Hypercholesterolemia 01/15/2013 Angina pectoris 08/21/2011 Benign hypertension 08/21/2011 Chronic obstructive lung disease 08/21/2011 Multiple joint pain 08/21/2011 Encounters Date Type Department Care Team Description 11/21/2024 Refill [facility] MED & PEDS [address] [place] [address] Mathieu Varela MD Recurrent major depressive disorder, in partial remission (CMS/HCC) 11/01/2024 Refill [facility] MED & PEDS [address] [place] [address] Mathieu Varela MD 10/21/2024 11:15 AM EDT Office Visit [facility] MED & PEDS [address] [place] [address] Mathieu Varela MD Benign hypertension (Primary Dx); Hypercholesterolemia; Stage 3b chronic kidney disease ([facility]/HCC); Paresthesias 10/21/2024 Travel 10/20/2024 Telephone [facility] MED & PEDS [address] [place] [address] Mathieu Varela MD Chart Prep 10/16/2024 Telephone [facility] MED & PEDS [address] [place] [address] Mathieu Varela MD Notification of Medication Change (Please call Mr. Shadi Elliott to inform him that an advisory was sent regarding the concomitant use of Norvasc and simvastatin 40 mg once a day. I recommend to stop the simvastatin 40 mg and to replace it with Lipitor 20 mg once a day. The prescription was sent to Mr. Shadi Elliott 's pharmacy.) 10/16/2024 Telephone [facility] MEDICINE [address] [place] [address] Mathieu Varela MD Medication Question 10/16/2024 Travel 10/16/2024 Telephone [facility] MEDICINE [address] [place] [address] Mathieu Varela MD Referral 10/16/2024 Orders Only [facility] MED & PEDS [address] [place] [address] Mathieu Varela MD Palpitations (Primary Dx) 10/16/2024 Orders Only [facility] MED & PEDS [address] [place] [address] Mathieu Varela MD Hypercholesterolemia (Primary Dx) 10/15/2024 Telephone [facility] MED & PEDS [address] [place] [address] Mathieu Varela MD Results; Referral from Last 3 Months Immunizations Immunization Administration Dates Next Due Influenza injectable quadriv [...] Sign Reading Time Taken Comments Blood Pressure 107/70 10/21/2024 10:31 AM EDT Pulse 82 10/21/2024 10:31 AM EDT Temperature 36.8 C (98.2 F) 10/21/2024 10:31 AM EDT Respiratory Rate 20 10/21/2024 10:31 AM EDT Oxygen Saturation 98% 10/21/2024 10:31 AM EDT Inhaled Oxygen Concentration - - Weight 94.8 kg (209 lb) 10/21/2024 10:31 AM EDT Height 176.5 cm (5' 9.5 ) 10/21/2024 10:31 AM ED T Body Mass Index 30.42 10/21/2024 10:31 AM EDT Plan of Treatment Health Maintenance Due Date Last Done Comments CT Colonography 1960 FIT DNA/Cologuard 1960 FIT 1960 FOBT 1960 Sigmoidoscopy 1960 RSV Patients and Patients Aged 60 years or older (1 - Risk 60-74 years 1-dose series) 2018 COVID-19 Vaccine ( season) 2024 03/17/2021, 11/30/2020, 11/02/2020 Influenza Vaccine (#1) 2024 , 01/15/2022, 12/20/2020, Additional history exists Depression Monitoring 03/17/2025 09/14/2024, 025 Lung Cancer Screening 05/18/2025 05/18/2024 SDOH Screening 06/29/2025 06/29/2024 Alcohol/Substance Use Screening 10/21/2025 10/21/2024 Tobacco Screening 10/21/2025 10/21/2024 Lipid Panel 06/30/2028 07/01/2023, 12/27, 11/14/2020, Additional history exists Colonoscopy 04/01/2029 04/01/2024 Colorectal Cancer Screening 04/01/2029 DTaP/Tdap/Td Vaccines (3 - Td or Tdap) 06/27/2033 06/28/2023, 01/05/2010 Zoster Vaccines Completed 03/19/2022, 01/15/2022 Pneumococcal Vaccine: 50+ Years Completed 06/28/2023, 07/22/2009 Hepatitis C Screening Completed 07/01/2023, 022 HIB Vaccines Aged Out No longer eligi [...] patient's age to complete this topic Meningococcal B Vaccine Aged Out No l onger eligible based on patient's age to complete [...] Procedure Name Priority Date/Time Associated Diagnosis Comments LDCT LUNG SCREENING Routine 05/18/2024 2 :01 PM EDT HM COLONOSCOPY Routine 04/01/2024 HEPATITIS C AB W/REFL TO HCV RNA, QN, PCR Routine 07/01/2023 10:23 AM EDT Benign hypertension Hypercholesterolemi a LIPID PANEL, STANDARD Routine 07/01/2023 10:23 AM EDT Benign hypertension Hypercholesterolemi a from Last 3 Months or Most Recently Relevant to Health Maintenance Results * CT Lung Screening Low dose (05/18/2024 2:01 PM EDT) Anatomical Region Laterality Modality Lung Computed Tomogra phy 05/18/2024 2:01 PM EDT Narrative 05/18/2024 2:03 PM EDT [place] [address] CT Scan Report Signed Patient: Shadi Elliott MR#: [id number] : 1960 Acct:[id number] Age/Sex: 63 / M ADM Date: 05/15/24 Loc: HO.CT Attending Dr: Melanie Gill PA-C Ordering Physician: Melanie Gill PA-C Date of Service: 05/15/24 Procedure(s): CT lung screening Accession Number(s): [id number] cc: Mathieu Varela MD; Melanie Gill PA-C Report Number: [id number]: Total DLP = 61.00 mGy-cm CLINICAL HISTORY: Z87.891 - Personal history of nicotine dependence CT lung cancer screening (LDCT) Comparison: None Technique: Axial CT images of the chest using low-dose technique. Referring provider counseled the patient on shared decision-making for LDCT screening. Additional counseling was provided on smoking cessation. Effective radiation dose total: DLP 50.3 mGycm, CTDIvol 1.5 mGy. Findings: Lung: Moderate centrilobular emphysema. 3.4 mm nodule of the right middle lobe series 6, image 64. Coronary artery calcifications: Mild Limited upper abdomen: Unremarkable Other: None Impression: LungRADS 2 - Benign Appearance: Continue annual screening with low dose Chest CT in 12 months. ##L2# Category 1: Normal; continue annual screening Category 2: Benign appearance or behavior, continue annual screening Category 3: Probably benign, [address] recommended Category 4A: Suspicious, [address] recommended; may consider PET/CT Category 4B: Suspicious, Additional diagnostics and/or tissue sampling recommended Category 4X: Suspicious, Additional diagnostics and/or tissue sampling recommended Category 0: Recalls (incomplete screen due to Incomplete coverage, Noise, Respiratory motion, Expiration, Obscured by acute abnormality) This document has been electronically signed by: Sydney Blank MD on 05/18/2024 14:01:41 Dictated By: Sydney Blank MD Signed By: <Electronically signed by Sydney Blank MD in OV> 05/18/24 1402 DD/ 1401 TD/TT: 05/18/24 1401 Sliver Cutter: Procedure Note Donotuseinterpreter, Image - 05/18/[address] [address] [address] Scan Report Signed Patient: Meaghan Elliott#: [id number] : 9Acct:[id number] Age/Sex: 63 / MADM Date: 05/15/24 Loc: HO.CT Attending Dr: Melanie Gill PA-C Ordering Physician: Melanie Gill PA-C Date of Service: 05/15/24 Procedure(s): CT lung screening Accession Number(s): [id number] cc: Mathieu Varela MD; Melanie Gill PA-C Report Number: [id number]: Total DLP = 61.00 mGy-cm CLINICAL HISTORY: Z87.891 - Personal history of nicotine dependence CT lung cancer screening (LDCT) Comparison: None Technique: Axial CT images of the chest using low-dose technique. Referring provider counseled the patient on shared decision-making for LDCT screening. Additional counseling was provided on smoking cessation. Effective radiation dose total: DLP 50.3 mGycm, CTDIvol 1.5 mGy. Findings: Lung: Moderate centrilobular emphysema. 3.4 mm nodule of the right middle lobe series 6, image 64. Coronary artery calcifications: Mild Limited upper abdomen: Unremarkable Other: None Impression: LungRADS 2 - Benign Appearance: Continue annual screening with low dose Chest CT in 12 months. ##L2# Category 1: Normal; continue annual screening Category 2: Benign appearance or behavior, continue annual screening Category 3: Probably benign, [address] recommended Category 4A: Suspicious, [address] recommended; may consider PET/CT Category 4B: Suspicious, Additional diagnostics and/or tissue sampling recommended Category 4X: Suspicious, Additional diagnostics and/or tissue sampling recommended Category 0: Recalls (incomplete screen due to Incomplete coverage, Noise, Respiratory motion, Expiration, Obscured by acute abnormality) This document has been electronically signed by: Sydney Blank MD on 05/18/2024 14:01:41 Dictated By: Sydney Blank MD Signed By: <Electronically signed by Sydney Blank MD in OV> 05/18/24 1402 DD/ 1401 TD/TT: 05/18/24 1401 Sliver Cutter: [facility] External Provider IMG CT PROCEDURES Final Result * Hm Colonoscopy (04/01/2024) Colonoscopy Normal Normal Narrative Aura Ritchie - 04/01/2024 Recommended 3-5 years . See see external hospital admission note on with result date Historical Provider HEALTH MAINTENANCE Final Result * Hepatitis C Antibody with Reflex to HCV, RNA, Quantitative, Real-Time PCR (07/01/2023 10:23 AM EDT) Hepatitis C Antibody Nonreactive Nonreactive [facility] Comment:Antibodies to HCV no t detected; does not exclude early acuteHCV infection. Blood Venous blood specimen / Unknown 07/01/2023 10:23 AM EDT 07/01/2023 2:07 PM EDT Mathieu Varela MD LAB BLOOD ORDERABLES Final Result [facility] [address] [place] [phone] * (ABNORMAL) Lipid Panel, Standard (07/01/2023 10:23 AM EDT) Triglycerides 74 <150 mg/dL [facility] Comment:Desirable Triglyceri de: less than 150 mg/dLBorderline High Triglyceride 150-199 mg/dLHigh Triglyceride: 200-499 mg/dLVery High Triglyceride: greater than or equal to 5OO mg/dL Cholesterol 147 <200 mg/dL [facility] Comment:Desirable Cholestero l: less than 200 mg/dLBorderline High Cholesterol: 200-239 mg/dLHigh Cholesterol: greater than 239 mg/dL LDL Cholesterol Calculated 95 <100 mg/dL [facility] Comment:Desirable LDL: less than 100 [...] 10:23 AM EDT 07/01/2023 2:07 PM EDT Mathieu Varela MD LAB BLOOD ORDERABLES Final Result [facility] [address] [place] [address] [phone] from Last 3 Months or Most Recently Relevant to Health Maintenance Insurance [place], [place] MEDICARE [facility] Care Teams Database Operator Relationship Specialty Start Date End Date Mathieu Varela MD [address] [place] [phone] PCP - General Internal Medicine 07/06/13
--- OUTSIDE RECORDS SUMMARY | 2024-12-21 15:43 | XMS_ITS | Patient Health Record ---
Author Organization [facility] Address [address] [place] [address] Care Team Providers Care Texturing Machine Fixer Name Role Phone Mathieu Varela M.D. Primary Care Provider Un available Kike Orellana Unavailable [phone] Reason For Referral No Information Plan Of Treatment No Information Insurance Providers Payer Name Payer Address Payer Phone Subscriber Number Group Number Insured Name Patient Relationship to Insured Coverage Start Date Coverage End Date MEDICAID OF [facility] [address] [place] [address] [id number] WILL ROMEO Self - patient is the insured
== END ==
LOC: HO.CARD 12:21
PROVIDERS: PCP Internal Medicine; Visit Provider Internal Medicine
DX: R07.2 Precordial pain (principal)
CPT/HCPCS: 93306

== ENCOUNTER → 2024-12-21 12:24 | Outpatient (BNV) | payer MEDICARE, MEDICAID, SELFPAY | PROVIDERS: PCP Internal Medicine; Visit Provider Internal Medicine | DX: I35.1 Nonrheumatic aortic (valve) insufficiency (principal) | CPT/HCPCS: 93306 ==

== ENCOUNTER → 2024-12-29 07:37 | Outpatient (REF) | payer MEDICARE, MEDICAID, SELFPAY ==
--- NOTE | ~2024-12-29 | NM_ITS ---
Lexiscan Myocardial perfusion study Indication: Chest pain Technique: The patient was brought in for a Lexiscan perfusion study on 12/29/2024 and was injected 0.4 mg of Lexiscan intravenously. Within a minute of this injection 30 mCi of sestamibi was given intravenously. Images were obtained using the SPECT gamma camera interlaced with the gating device. Images were obtained in supine position. Resting perfusion study was performed on 12/30/2024. Patient was administered 30 mCi of sestamibi intravenously at rest. Images were then obtained in supine position. Total DLP 137 mGy-cm. Images were processed with the software and compared side to side in short axis, horizontal long axis and vertical long axis views. Findings: Raw aquisition reviewed. Arms by the patient's side. The stress perfusion study showed diminished tracer uptake along the inferior wall. There is improvement with CT attenuation correction suggestive of components of diaphragmatic attenuation artifact. However, the distal inferior wall still has a perfusion defect. The gated study shows normal LV systolic function with calculated LVEF of 63%. LV cavity is normal in size. The gated study shows reduced thickening and contractility in the distal part of inferior wall. Resting study shows diminished tracer uptake in the distal part of inferior wall. There is improvement with CT attenuation correction suggestive of diaphragmatic attenuation artifact. Gating at rest reveals possibly reduced thickening in the distal inferior wall and LVEF of 61%. The findings are consistent with distal inferior defect with reversible and fixed components. NM/NM cardiolite stress test Impression: 1. Myocardial perfusion imaging study shows ischemia/infarct pattern in the distal inferior wall. 2. Gated LVEF is 63% during stress and 61% during rest. 3. Transient ischemic dilatation not present. EKG component of the test reported separately. Electronically signed by: Anish Ortiz MD 12/31/2024 12:25 PM [facility]
--- NOTE | 2024-12-29 07:39 | CA_ITS ---
Acquisition Time: 2024-12-29 08:00:36 Total Exercise Time: 00:05:26 Test Indications: CP, SOB Medications: SEE H&P Protocol: HEATHER Max HR: 111 BPM 72% of Pred: 154 BPM Max BP: 148/50 mmHG Max Work Load: 7.0 METS Exercise stress test with exercise 5 mins 26 secs of Heather Protocol, achieving 72% MPHR, with reports of SOB, requested to stop, no chest pain. No EKG changes at achieved workload. Test switched to Lexiscan. Pharmacological stress test with Lexiscan while pt marches in chair, with reports of SOB and hedache, without any arrythmias, with normotensive response to injection. Nondiagnostic EKG for ischemia. In recovery, pt treated with IVP Aminophylline 75 mg to reverse Lexiscan after which pt slowly feeling back to baseline. Nuclear images pending. Test reviewed with Dr. Huddleston. Referred By: Anish Ortiz Electronically Signed By: eBto Macario
--- OUTSIDE RECORDS SUMMARY | 2024-12-29 07:40 | XMS_ITS | Encounter Summary ---
Author Organization [employer] Address [address] [facility] 7 [place] [address] Care Team Providers Care Anesthesia Technician Name Role Phone Mathieu Varela MD Primary Care Provider Reason for Referral * Consultation (Routine) - Canceled Specialty Diagnoses / Procedures Referred By Kristine nino Referred To Contact Cardiology Diagnoses Palpitations Mathieu Varela MD [address] [place] [address] Phone: tel: fax: Referral ID Status Reason Start Date Expiration Date Visits Requested Visits Authorized [id number] Canceled Specialty Services Required 10/16/2024 10/16/2025 1 1 Encounter Details Date Type Department Care Team (Late st Contact Info) Description 10/16/2024 Orders Only [facility] CHC MED & PEDS [address] [place] [address] Mathieu Varela MD [address] [place], [place] [phone] Palpitations (Primary Dx) Social History Tobacco Use [...] documented as of this encounter Care Teams Anesthesia Technician Relationship Specialty Start Date End Date Mathieu Varela MD [address] [place] [phone] PCP - General Internal Medicine 07/06/13 documented as of this encounter
--- OUTSIDE RECORDS SUMMARY | 2024-12-29 07:40 | XMS_ITS | Encounter Summary ---
Author Organization [employer] Address [address] [facility] 7t [place] [address] Care Team Providers Care Hospice Clinical Manager Name Role Phone Mathieu Varela MD Primary Care Provider Encounter Details Date Type Department Care Team (Late st Contact Info) Description 11/09/2022 Orders Only [facility] CHC MED & PEDS [address] [place], [place] [phone] Nikki Guadalupe LPN Social History Tobacco Use [...] on filedocumented in this encounter Care Teams Hospice Clinical Manager Relationship Specialty Start Date End Date Mathieu Varela MD [address] [place] [address] PCP - General Internal Medicine 07/06/13 documented as of this encounter
--- OUTSIDE RECORDS SUMMARY | 2024-12-29 07:40 | XMS_ITS | Encounter Summary ---
Author Organization [employer] Address [address] [facility] 7t [place] [address] Care Team Providers Care Diamond Merchant Name Role Phone Mathieu Varela MD Primary Care Provider Reason for Visit * Reason Comments Med Refill Encounter Details Date Type Department Care Team (Late st Contact Info) Description 09/19/2022 Refill [facility] CHC MED & PEDS [address] [place], [place] [phone] Mathieu Varela MD [address] [place], [place] [phone] Recurrent major depressive disorder, in partial remission [...] (CMS/HCC) documented in this encounter Care Teams Diamond Merchant Relationship Specialty Start Date End Date Mathieu Varela MD [address] [place] [address] PCP - General Internal Medicine 07/06/13 documented as of this encounter
--- OUTSIDE RECORDS SUMMARY | 2024-12-29 07:40 | XMS_ITS | Patient Health Record ---
Author Organization [facility] Address [address] [place] [phone] Care Team Providers Care Telecommunications Technician Name Role Phone Mathieu Varela M.D. Primary Care Provider Un available Kike Orellana Unavailable [phone] Reason For Referral No Information Plan Of Treatment No Information Insurance Providers Payer Name Payer Address Payer Phone Subscriber Number Group Number Insured Name Patient Relationship to Insured Coverage Start Date Coverage End Date MEDICAID OF [facility] [address] [place] [address] [id number] WILL ROMEO Self - patient is the insured
--- OUTSIDE RECORDS SUMMARY | 2024-12-29 07:40 | XMS_ITS | Encounter Summary ---
Author Organization [employer] Address [address] [facility] 7t [place] [address] Care Team Providers Care Percussion Instrument Repairer Name Role Phone Mathieu Varela MD Primary Care Provider Encounter Details Date Type Department Care Team (Late st Contact Info) Description 07/24/2022 Orders Only [facility] & PEDS [address] [place] [address] Amarilys Ewing LPN Social History Tobacco Use [...] on filedocumented in this encounter Care Teams Percussion Instrument Repairer Relationship Specialty Start Date End Date Mathieu Varela MD [address] [place] [address] PCP - General Internal Medicine 07/06/13 documented as of this encounter
--- OUTSIDE RECORDS SUMMARY | 2024-12-29 07:40 | XMS_ITS | Encounter Summary ---
Author Organization [employer] Address [address] [facility] 7t [place] [address] Care Team Providers Care Lumber Carrier Name Role Phone Mathieu Varela MD Primary Care Provider Reason for Visit * Reason Comments Med Refill Encounter Details Date Type Department Care Team (Late st Contact Info) Description 11/23/[address] [facility] MED & PEDS [address] [place], [place] [phone] Mathieu Varela MD [address] [place], [place] [phone] Recurrent major depressive disorder, in partial remission [...] (CMS/HCC) documented in this encounter Care Teams Lumber Carrier Relationship Specialty Start Date End Date Mathieu Varela MD [address] [place] [address] PCP - General Internal Medicine 07/06/13 documented as of this encounter
--- OUTSIDE RECORDS SUMMARY | 2024-12-29 07:40 | XMS_ITS | Encounter Summary ---
Author Organization [employer] Address [address] [facility] 7t [place] [address] Care Team Providers Care Supervisor Communications And Signals Name Role Phone Mathieu Varela MD Primary Care Provider Reason for Visit * Reason Comments Med Refill Encounter Details Date Type Department Care Team (Late st Contact Info) Description 12/04/2022 Refill [facility] [address] [place] [address] Mathieu Varela MD 505 [place], [place] [phone] Social History Tobacco Use Types Packs/Day Years [...] on filedocumented in this encounter Care Teams Supervisor Communications And Signals Relationship Specialty Start Date End Date Mathieu Varela MD 505 [place] [address] PCP - General Internal Medicine 07/06/13 documented as of this encounter
--- OUTSIDE RECORDS SUMMARY | 2024-12-29 07:40 | XMS_ITS | Clinical Summary ---
Author Organization [facility], Address [address] [place] [address] [place] [address] Phone Care Team Providers Care Break Off Worker Name Role Phone Mathieu Varela MD Primary Care Provider [phone] Allergies No known active allergies Medications buPROPion [...] age to complete this topic Insurance Medicaid [place] Care Teams Break Off Worker Relationship Specialty Start Date End Date Mathieu Vraela MD PCP - General 12/30/18
--- OUTSIDE RECORDS SUMMARY | 2024-12-29 07:40 | XMS_ITS | Encounter Summary ---
Author Organization [employer] Address [address] [facility] 7t [place] [address] Care Team Providers Care Roofing Laborer Name Role Phone Mathieu Varela MD Primary Care Provider Reason for Visit * Reason Comments Med Refill Encounter Details Date Type Department Care Team (Late st Contact Info) Description 03/31/2024 Refill [facility] MED & PEDS [address] [place], [place] [phone] Mathieu Varela MD 505 [place], [place] [phone] Other male erectile dysfunction Social History Tobacco [...] documented as of this encounter Care Teams Roofing Laborer Relationship Specialty Start Date End Date Mathieu Varela MD [address] [place] [address] PCP - General Internal Medicine 07/06/13 documented as of this encounter
--- OUTSIDE RECORDS SUMMARY | 2024-12-29 07:40 | XMS_ITS | Encounter Summary ---
Author Organization [facility], Address [address] [place] [address] Phone Care Team Providers Care Loop Tacker Name Role Phone Mathieu Varela MD Primary Care Provider [phone] Encounter Details Date Type Department Care Team (Late st Contact Info) Description 10/05/2019 Orders Only [facility] [address] [place] [phone] Yulia Rosado MD Chronic kidney disease stage [...] disorder documented in this encounter Care Teams Loop Tacker Relationship Specialty Start Date End Date Mathieu Varela MD PCP - General 12/30/18 documented as of this encounter
--- OUTSIDE RECORDS SUMMARY | 2024-12-29 07:40 | XMS_ITS | Encounter Summary ---
Author Organization [employer] Address [address] [facility] 7t [place] [address] Care Team Providers Care Senior Solutions Engineer Name Role Phone Mathieu Varela MD Primary Care Provider Reason for Visit * Reason Comments Med Refill Encounter Details Date Type Department Care Team (Late st Contact Info) Description 04/28/[address] [facility] MED & PEDS [address] [place] [address] Mathieu Varela MD 505 [place] [address] Psoriasiform dermatitis Social History Tobacco Use Types [...] disorders documented in this encounter Care Teams Senior Solutions Engineer Relationship Specialty Start Date End Date Mathieu Varela MD [address] [place] [address] PCP - General Internal Medicine 07/06/13 documented as of this encounter
--- OUTSIDE RECORDS SUMMARY | 2024-12-29 07:40 | XMS_ITS | Encounter Summary ---
Author Organization [facility], Address [address] [place] [address] Phone Care Team Providers Care Order Fulfillment Specialist Name Role Phone Mathieu Varela MD Primary Care Provider [phone] Encounter Details Date Type Department Care Team (Late st Contact Info) Description 11/07/2021 Documentation Only [facility], [address] [place] [address] Rivka Ozuna PA [address] [place] [address] Social History Tobacco Use Types [...] on filedocumented in this encounter Care Teams Order Fulfillment Specialist Relationship Specialty Start Date End Date Mathieu Varela MD PCP - General 12/30/18 documented as of this encounter
--- OUTSIDE RECORDS SUMMARY | 2024-12-29 07:40 | XMS_ITS | Encounter Summary ---
Author Organization [employer] Address [address] [facility] 7t [place] [address] Care Team Providers Care Fashion Coordinator Name Role Phone Mathieu Varela MD Primary Care Provider Encounter Details Date Type Department Care Team (Late st Contact Info) Description 08/14/2022 Orders Only [facility] MED & PEDS [address] [place] [address] Susanne Cruz LPN Social History Tobacco Use [...] on filedocumented in this encounter Care Teams Fashion Coordinator Relationship Specialty Start Date End Date Mathieu Varela MD 505 [place] [address] PCP - General Internal Medicine 07/06/13 documented as of this encounter
--- OUTSIDE RECORDS SUMMARY | 2024-12-29 07:40 | XMS_ITS | Encounter Summary ---
Author Organization [employer] Address [address] [facility] 7t [place] [address] Care Team Providers Care Healthcare Manager Name Role Phone Mathieu Varela MD Primary Care Provider [phone] Encounter Details Date Type Department Care Team (Late st Contact Info) Description 01/09/2023 Orders Only [facility] MED & PEDS 505 [place] [address] Mathieu Varela MD 505 [place] [address] Recurrent major depressive disorder, in partial remission [...] (CMS/HCC) documented in this encounter Care Teams Healthcare Manager Relationship Specialty Start Date End Date Mathieu Varela MD 505 [place] [address] PCP - General Internal Medicine 07/06/13 documented as of this encounter
--- OUTSIDE RECORDS SUMMARY | 2024-12-29 07:40 | XMS_ITS | Encounter Summary ---
Author Organization [employer] Address [address] [facility] 7t [place] [address] Care Team Providers Care Forklift Technician Name Role Phone Mathieu Varela MD Primary Care Provider Reason for Visit * Reason Onset Date Comments Call Back Request 06/20/2023 Encounter Details Date Type Department Care Team ([facility] st Contact Info) Description 06/20/2023 Telephone [facility] MED & PEDS [address] [place] [address] Mathieu Varela MD 505 [place] [address] Call Back Request Social History Tobacco Use [...] Informed message would be relayed to their efficiency manager to relay message to PAR. Pt agrees to f/u on 06/28/23. * Telephone Encounter - Corazon Casey - 06/20/2023 3:04 PM EDT Tc from pt requesting to speak with a nurse in regards to refusal on refill for hydrOXYzine HCl (Atarax) 25 MG tablet Please contact pt at [phone] documented in this encounter Plan of Treatment Not on file documented as of this encounter Visit Diagnoses Not on filedocumented in this encounter Care Teams Forklift Technician Relationship Specialty Start Date End Date Mathieu Varela MD [address] [place] [address] PCP - General Internal Medicine 07/06/13 documented as of this encounter
--- OUTSIDE RECORDS SUMMARY | 2024-12-29 07:41 | XMS_ITS | Clinical Summary ---
Author Organization [employer] Address [address] [facility] 7t [place] [address] Care Team Providers Care Dementia Program Director Name Role Phone Mathieu Varela MD Primary Care Provider Allergies No known active allergies Medications Multiple Vitamin (Daily Vites) tablet TAKE 1 TABLET BY MOUTH EVERY DAY 90 tablet 3 3 Active Multiple Vitamin (Daily-Nereida Multivitamin) tablet TAKE 1 TABLET BY MOUTH EVERY DAY 90 tablet 3 4 Active amLODIPine (Norvasc) 5 MG tabletIndications :Essential (primary) hypertension TAKE 1 TABLET BY MOUTH EVERY DAY 90 tablet 3 5 Active sildenafil (Viagra) 50 MG tabletIndications :Other male erectile dysfunction Take 1 tablet (50 mg) by mouth if needed each day for erectile dysfunction. 10 tablet 11 5 Active albuterol (ProAir HFA) 108 (90 Base) MCG/ACT inhaler inhale 2 puff by inhalation route every 6hrs as needed 2 Active nitroglycerin (Nitrostat) 0.[address] 1 tablet (0.4 mg) under the tongue every 5 (five) minutes if needed for chest pain. 90 tablet 1 5 Active metoprolol succinate XL (Toprol XL) 25 MG 24 hr tabletIndications :Benign hypertension Take 0.5 tablets (12.5 mg) by mouth Once per day. Do not crush or chew. 15 tablet 11 5 09/15/19 26 Active atorvastatin (Lipitor) 20 MG tabletIndications :Hypercholesterol emia Take 1 tablet (20 mg) by mouth Once per day. 30 tablet 11 5 10/17/19 26 Active amitriptyline (Elavil) 25 MG tabletIndications :Paresthesias Take 1 tablet (25 mg) by mouth at bedtime. 90 tablet 1 5 Active topiramate 50 MG tablet TAKE 1 TABLET BY MOUTH EVERY DAY 90 tablet 5 Active buPROPion SR (Wellbutrin SR) 150 MG 12 hr tabletIndications :Recurrent major depressive disorder, in partial remission (CMS/HCC) TAKE 1 TABLET BY MOUTH EVERY 12 HOURS. DO NOT CRUSH, CHEW, OR SPLIT. 180 tablet 2 5 Active Active Problems Problem Noted Date Diagnosed Date Erectile dysfunction 03/31/2024 Hypertensive disorder 03/04/2019 Stage 3b chronic kidney disease (CMS/HCC) 2019 Hypercholesterolemia 01/15/2013 Angina pectoris 08/21/2011 Benign hypertension 08/21/2011 Chronic obstructive lung disease 08/21/2011 Multiple joint pain 08/21/2011 Encounters Date Type Department Care Team Description 11/21/2024 Refill [facility] MED & PEDS [address] [place] [address] Mathieu Varela MD Recurrent major depressive disorder, in partial remission (CMS/HCC) 11/01/2024 Refill [facility] MED & PEDS [address] [place] [address] Mathieu Varela MD 10/21/2024 11:15 AM EDT Office Visit [facility] PEDS [address] [place] [address] Mathieu Varela MD Benign hypertension (Primary Dx); Hypercholesterolemia; Stage 3b chronic kidney disease ([facility]/HCC); Paresthesias 10/21/2024 Travel 10/20/2024 Telephone [facility] [address] [place] [address] Mathieu Varela MD Chart Prep 10/16/2024 Telephone [facility] [address] [place] [address] Mathieu Hdez MD Notification of Medication Change (Please call Mr. Shadi Elliott to inform him that an advisory was sent regarding the concomitant use of Norvasc and simvastatin 40 mg once a day. I recommend to stop the simvastatin 40 mg and to replace it with Lipitor 20 mg once a day. The prescription was sent to Mr. Shadi Elliott 's pharmacy.) 10/16/2024 Telephone [facility] [address] [place], [place] [phone] Mathieu Varela MD Medication Question 10/16/2024 Travel 10/16/2024 Telephone [facility] [address] [place], [place] [phone] Mathieu Varela MD Referral 10/16/2024 Orders Only [facility] MED & PEDS [address] [place], [place] [phone] Mathieu Varela MD Palpitations (Primary Dx) 10/16/2024 Orders Only [facility] [address] [place], [place] [phone] Mathieu Varela MD Hypercholesterolemia (Primary Dx) 10/15/2024 Telephone [facility] [address] [place], [place] [phone] Mathieu Varela MD Results; Referral from Last [...] PM EDT Narrative 05/18/2024 2:03 PM EDT [place] [address] [address] Scan Report Signed Patient: Shadi Elliott MR#: [id number] : 1960 Acct:[id number] Age/Sex: 63 / M ADM Date: 05/15/24 Loc: .CT Attending Dr: Melanie Gill PA-C Ordering Physician: Melanie Gill PA-C Date of Service: 05/15/24 Procedure(s): CT lung screening Accession Number(s): [id number] cc: Mathieu Varela MD; Melanie Gill PA-C Report Number: [id number]: Total DLP = 61.00 mGy-cm CLINICAL HISTORY: [...] 05/18/24 1402 DD/ 1401 TD/TT: 05/18/24 1401 Cigarette Stamper: Procedure Note Donotuseinterpreter, Image - 05/18/[address] [place] [address] [address] Scan Report Signed Patient: Meaghan Elliott#: [id number] : 9Acct:[id number] Age/Sex: 63 / MADM Date: 05/15/24 Loc: HO.CT Attending Dr: Melanie Gill PA-C Ordering Physician: Melanie Gill PA-C Date of Service: 05/15/24 Procedure(s): CT lung screening Accession Number(s): [id number] cc: Mathieu Varela MD; Melanie Gill PA-C Report Number: [id number]: Total DLP = 61.00 mGy-cm CLINICAL HISTORY: [...] 05/18/24 1402 DD/ 1401 TD/TT: 05/18/24 1401 Cigarette Stamper: [facility] External Provider IMG CT PROCEDURES Final Result * Hm Colonoscopy (04/01/2024) Colonoscopy Normal Normal Narrative Aura Ritchie - 04/01/2024 Recommended 3-5 years . See see external hospital admission note on with result date us Historical Provider HEALTH MAINTENANCE Final Result * Hepatitis C Antibody with Reflex to HCV, RNA, Quantitative, Real-Time PCR (07/01/2023 10:23 AM EDT) Hepatitis C Antibody Nonreactive Nonreactive [facility] Comment:Antibodies to HCV no t detected; does not exclude early acuteHCV infection. Blood Venous blood specimen / Unknown 07/01/2023 10:23 AM EDT 07/01/2023 2:07 PM EDT Mathieu Varela MD LAB BLOOD ORDERABLES Final Result [facility] [address] [place] [phone] * (ABNORMAL) Lipid Panel, Standard (07/01/2023 10:23 AM EDT) Triglycerides 74 <150 mg/dL [facility] Comment:Desirable Triglyceri de: less than 150 mg/dLBorderline High Triglyceride 150-199 mg/dLHigh Triglyceride: 200-499 mg/dLVery High Triglyceride: greater than or equal to 5OO mg/dL Cholesterol 147 <200 mg/dL [facility] Comment:Desirable Cholestero l: less than 200 mg/dLBorderline High Cholesterol: 200-239 mg/dLHigh Cholesterol: greater than 239 mg/dL LDL Cholesterol Calculated 95 <100 mg/dL [facility] Comment:Desirable LDL: less than 100 mg/dLNear Optimal/Above Optimal LDL: 110- 129 mg/dLBorderline High LDL: 130-159 mg/dLHigh LDL: 160-189 mg/dLVery High LDL: greater than or equal to 190 mg/dL HDL Cholesterol 38(L) >40 mg/dL [facility] Comment:Desirable HDL: great er than 40 mg/dL Note: This HDL assay may give artificially low results in patients with liver disease. Blood Venous blood specimen / Unknown 07/01/2023 10:23 AM EDT 07/01/2023 2:07 PM EDT Mathieu Varela MD LAB BLOOD ORDERABLES Final Result [facility] [address] [place] [address] [phone] from Last 3 Months or Most Recently Relevant to Health Maintenance Insurance MEDICARE [facility] Care Teams Dementia Program Director Relationship Specialty Start Date End Date Mathieu Varela MD [address] [place] [address] PCP - General Internal Medicine 07/06/13
--- OUTSIDE RECORDS SUMMARY | 2024-12-29 07:41 | XMS_ITS | Encounter Summary ---
Author Organization [employer] Address [address] [facility] 7t [place] [address] Care Team Providers Care Avionics Test Technician Name Role Phone Mathieu Varela MD Primary Care Provider Reason for Visit * Reason Onset Date Comments Appointment Request 04/07/2024 Encounter Details Date Type Department Care Team (Late st Contact Info) Description 04/07/2024 Telephone [facility] [address] [place] [address] Mathieu Varela MD [address] [place], [place] [phone] Appointment Request Social History Tobacco Use Types [...] or over the phone. Contact Pt at [phone] documented in this encounter Plan of Treatment Not on file documented as of this encounter Visit Diagnoses Not on filedocumented in this encounter Additional Health Concerns Assessment Noted Time PHQ-9 Depression Total Score: 6 09/04/19 10:46 AM EDT documented as of this encounter Care Teams Avionics Test Technician Relationship Specialty Start Date End Date Mathieu Varela MD [address] [place] [address] PCP - General Internal Medicine 07/06/13 documented as of this encounter
== END ==
LOC: HO.CARD 07:37
PROVIDERS: PCP Internal Medicine; Visit Provider Internal Medicine
DX: R07.2 Precordial pain (principal)
CPT/HCPCS: 78452; 93017; A9500; J0280; J2785

== ENCOUNTER → 2024-12-29 07:39 | Outpatient (BNV) | payer MEDICARE, MEDICAID, SELFPAY | PROVIDERS: PCP Internal Medicine | DX: R06.02 Shortness of breath (principal); R51.9 Headache, unspecified | CPT/HCPCS: 78452; 93016; 93018 ==

== ENCOUNTER 2025-01-25 11:50 | Outpatient (AMB) | payer MEDICARE, MEDICAID, SELFPAY ==
--- NOTE | 2025-01-25 13:09 | MHC.OFFVIS ---
Vital Signs 01/25/25 13:10 Height 5 ft 9 in Weight 216 lb 7.903 oz BMI 32.0 BP 110/62 Blood Pressure Location Lt brachial Position Sitting Pulse 65 Pulse Source Pulse Oximeter Intake Visit Reasons: 3 mth fu after stress/echo Wire Photo Operator News Required: No Allergies No Known Allergies (No Known Allergies*) Allergy (Verified 01/25/25 13:12) Medication List - Last Reconciled 01/25/25 by Marian Joseph NP-C amitriptyline 25 mg PO BEDTIME amlodipine 5 mg PO DAILY atorvastatin (Lipitor) 20 mg PO DAILY bupropion HCl SR 150 mg PO Q12H metoprolol tartrate 12.5 mg PO BID sildenafil (Viagra) 25 mg PO DAILY PRN topiramate 50 mg PO DAILY HPI HPI 3 mth fu after stress/echo: Details: The patient is a 64 year old individual presenting for evaluation of chest discomfort. The patient reports a long-standing history of exertional symptoms which seem to be worsening, now occurring with activities like climbing stairs or walking a lot. The patient first experiences shortness of breath, followed by substernal pain that can persist for approximately 20 minutes after resting. Recent cardiac workup includes an echocardiogram on 12/21/2024, which showed an ejection fraction of 61%, mild aortic regurgitation, and no regional wall motion abnormalities. An exercise nuclear stress test on 12/29/2024 was terminated after 5 minutes and 26 seconds due to shortness of breath, without chest discomfort or EKG changes. A subsequent pharmacological study revealed an ischemia-infarct pattern in the distal inferior wall, with uncertainty whether it represented an old infarct or active ischemia. A CTA of the coronary arteries is pending. Past medical history is significant for hypertension, hyperlipidemia, chronic kidney disease, and COPD or asthma. The patient has a history of smoking cigarettes but has quit, though continues to use marijuana. The patient also reports a past history of cocaine use, which was discontinued in 1999. Current cardiac medications include amlodipine, atorvastatin, and metoprolol. [facility] Medical History CKD (chronic kidney disease) HTN (hypertension) Hypercholesteremia Tubular adenoma of colon Obesity Personal history of nicotine dependence Surgical History History of cardiac cath History of colonoscopy Family History Mother Ovarian cancer Father Lung cancer Brother Cancer Social History Alcohol intake: current Alcohol intake frequency: holidays/special occasions only Patient Tobacco Use Status: Former Tobacco user Tobacco use type: Cigarette Years Smoked: (onset 8yo, 1/2-1ppd x 50yrs, 35pyh, quit 2019) Substance Use Type: Marijuana Review of Systems Const All systems reviewed & are unremarkable except as noted in HPI and below ENT Denies dizziness Card Reports chest pain, Denies chest pain at rest, Reports chest pain with activity, Denies rapid heart rate, Denies pedal edema, Denies edema, Denies leg edema, Denies lightheadedness, Denies palpitations, Reports dyspnea, Reports dyspnea on exertion and Denies orthopnea Resp Denies cough, Reports dyspnea and Reports dyspnea on exertion GI Denies hematochezia and Denies change in stool character Musc Denies abnormal gait, Denies limited range of motion, Denies muscle cramps, Denies muscle weakness, Denies numbness, Denies radiating pain into limb, Denies stiffness and Denies tingling Neuro Denies abnormal gait, Denies dizziness, Denies numbness and Denies tingling Endo Denies palpitations Physical Exam Vital Signs: Last Vital Signs Pulse 65 01/25/25 13:10 BP 110/62 01/25/25 13:10 BMI result Body Mass Index 32.0 Const General: cooperative, healthy appearing, comfortable and no acute distress Orientation/consciousness: patient oriented x3 Neck Neck: Yes normal visual inspection Resp Effort & Inspection: normal respiratory effort Auscultation: clear to auscultation bilaterally, no crackles, no rales, no rhonchi and no wheezes Cardio Rate: regular rate Rhythm: regular rhythm Heart sounds: S1 normal heart sound present, S2 normal heart sound present, no gallops, no murmurs and no rubs Neuro General: patient oriented x3 Extrem General: Yes normal to inspection, No no pedal edema and No calf tenderness Psych Appearance: grossly normal Mental Status: mental status grossly normal Speech and movement: Normal speech and movement present Assessment & Plan Assessment & Plan (1) Precordial chest pain: Code(s): R07.2 - Precordial pain Category: Medical Plan: Reports of longstanding exertional chest discomfort increasing in frequency and severity. Cardiac risks of hypertension, hyperlipidemia, smoking, prior history of substance abuse. A recent nuclear stress test does show an ischemic/infarct pattern of the distal inferior wall. His recent echo showed normal EF and no regional wall motion abnormalities which is reassuring. A CTA of the coronary arteries is pending. Signs and symptoms of angina reviewed with him. Emergency care if needed for symptoms. Continue amlodipine, metoprolol, atorvastatin. (2) HTN (hypertension): Code(s): I10 - Essential (primary) hypertension Category: Medical Plan: Blood pressure goal less than 130/80. Well controlled at this time. No med changes made. (3) Hypercholesteremia: Code(s): E78.00 - Pure hypercholesterolemia, unspecified Category: Medical Plan: [place] LDL goal less than 100. If found to have coronary artery disease then his goal will be less than 70. Labs done 07/01/2023 showed LDL 95. Continue atorvastatin. (4) Abnormal nuclear stress test: Code(s): R94.39 - Abnormal result of other cardiovascular function study Category: Medical Plan: As above. Plan I explained to the patient that the echocardiogram showed the patient's heart is strong and the hayes are moving well. I discussed the results of the nuclear stress test, noting that it showed a small area of the heart that may not be getting adequate blood flow, but it was difficult to determine if this was from an old heart attack or an active blockage. I explained that a cardiac CT scan has been ordered to get a detailed look at the coronary arteries to check for blockages, which will help determine the cause of the patient's symptoms and guide treatment. I informed the patient that we will call with the test results and schedule a follow-up appointment to review them in detail and adjust medications if needed. Patient Instructions: - Your symptoms of chest discomfort with activity are being investigated further. - An ultrasound of your heart showed that it is strong and working well. - Your recent heart stress test showed a possible issue with blood flow in a small area of your heart. - You are scheduled for a cardiac CT scan on February 10 to get a better look at the arteries of your heart. - You need to have a fasting blood test before your CT scan. - We will call you with the results of your scan and set up a follow-up appointment to discuss the findings and manage your medications. Patient was informed and verbally consented to the use of an ambient scribe for clinic note documentation during this visit. Visit time spent on chart review, interview, assessment, orders, documentation. Coding Level of Care Code Est Pt Level 4 (07005) Complex visit Add On G2211 Diagnoses Precordial chest pain R07.2 HTN (hypertension) I10 Hypercholesteremia E78.00 Abnormal nuclear stress test R94.39 Time Spent (min) 28
[2025-01-25 13:10] VITALS: BP 110/62; PULSE 65; BMI 32.0
--- OUTSIDE RECORDS SUMMARY | 2025-01-25 15:41 | XMS_ITS | Encounter Summary ---
Author Organization [employer] Address [address] [facility] 7t [place] [address] Care Team Providers Care Customer Service Attendant Name Role Phone Mathieu Varela MD Primary Care Provider Encounter Details Date Type Department Care Team (Late st Contact Info) Description 11/09/2022 Orders Only [facility] MED & PEDS [address] [place], [place] [phone] Nikki Guadalupe LPN Social History Tobacco Use [...] on filedocumented in this encounter Care Teams Customer Service Attendant Relationship Specialty Start Date End Date Mathieu Varela MD [address] [place] [address] PCP - General Internal Medicine 07/06/13 documented as of this encounter
--- OUTSIDE RECORDS SUMMARY | 2025-01-25 15:41 | XMS_ITS | Encounter Summary ---
Author Organization [facility], Address [address] [place] [address] Phone Care Team Providers Care Shift Mgr Name Role Phone Mathieu Varela MD Primary Care Provider [phone] Encounter Details Date Type Department Care Team (Late st Contact Info) Description 11/07/2021 Documentation Only [facility], [address] [place] [address] Rivka Ozuna PA [address] [place] [address] Social History Tobacco Use Types [...] on filedocumented in this encounter Care Teams Shift Mgr Relationship Specialty Start Date End Date Mathieu Varela MD PCP - General 12/30/18 documented as of this encounter
--- OUTSIDE RECORDS SUMMARY | 2025-01-25 15:41 | XMS_ITS | Clinical Summary ---
Author Organization [employer] Address [address] [facility] 7t [place] [address] Care Team Providers Care Support Services Tech Name Role Phone Mathieu Varela [...] :Recurrent major depressive disorder, in partial remission ([facility]) TAKE 1 TABLET BY MOUTH EVERY 12 HOURS. DO NOT CRUSH, CHEW, OR SPLIT. 180 tablet 2 5 Active Active Problems Problem Noted Date Diagnosed Date Erectile dysfunction 03/31/2024 Hypertensive disorder 03/04/2019 Stage 3b chronic kidney disease ([facility]/HCC) 2019 Hypercholesterolemia 01/15/2013 Angina pectoris 08/21/2011 Benign hypertension 08/21/2011 Chronic obstructive lung disease 08/21/2011 Multiple joint pain 08/21/2011 Encounters Date Type Department Care Team Description 12/29/2024 Orders Only [facility] External Provider, [facility] 11/21/2024 Refill [facility] MED & PEDS [address] [place] [address] Mathieu Varela MD Recurrent major depressive disorder, in partial remission ([facility]/HCC) 11/01/2024 Refill [facility] MED & PEDS [address] [place] [address] Mathieu Varela MD from Last 3 Months Immunizations Immunization Administration [...] 1 97 - 2019 Smokeless Tobacco: Never Tobacco Cessation:Counseling [...] 60 years or older (1 - Risk 50-74 years 1-dose series) 2008 COVID-19 Vaccine ( season) 2024 03/17/2021, 11/30/2020, [...] Procedure Name Priority Date/Time Associated Diagnosis Comments STRESS TEST WITH MYOCARDIAL PERFUSION Routine 12/29/2024 9:35 AM EST LDCT LUNG SCREENING Routine 05/18/2024 2 :01 PM EDT HM COLONOSCOPY Routine 04/01/2024 HEPATITIS C AB W/REFL TO HCV RNA, QN, PCR Routine 07/01/2023 10:23 AM EDT Benign hypertension Hypercholesterolemi a LIPID PANEL, STANDARD Routine 07/01/2023 10:23 AM EDT Benign hypertension Hypercholesterolemi a from Last 3 Months or Most Recently Relevant to Health Maintenance Results * Stress test with myocardial perfusion (12/29/2024 9:35 AM EST) 12/29/2024 9:35 AM EST Narrative [facility] - 12/31/2024 12:28 PM EST [address] [address] Nuclear Medicine Report Signed Patient: Shadi Elliott MR#: [id number] 619 : 1960 Acct:[id number] Age/Sex: 64 / M ADM Date: 12/29/24 Loc: [facility] Attending Dr: Anish Ortiz MD Ordering Physician: Anish Ortiz MD Date of Service: 12/29/24 Procedure(s): NM cardiolite stress test Accession Number(s): [id number] cc: Mathieu Varela MD; Anish Ortiz MD Reason for Exam: R07.2 - Precordial pain Lexiscan Myocardial perfusion study Indication: Chest pain Technique: The patient was brought in for a Lexiscan perfusion study on 12/29/2024 and was injected 0.4 mg of Lexiscan intravenously. Within a minute of this injection 30 mCi of sestamibi was given intravenously. Images were obtained using the SPECT gamma camera interlaced with the gating device. Images were obtained in supine position. Resting perfusion study was performed on 12/30/2024. Patient was administered 30 mCi of sestamibi intravenously at rest. Images were then obtained in supine position. Total DLP 137 mGy-cm. Images were processed with the software and compared side to side in short axis, horizontal long axis and vertical long axis views. Findings: Raw aquisition reviewed. Arms by the patient's side. The stress perfusion study showed diminished tracer uptake along the inferior wall. There is improvement with CT attenuation correction suggestive of components of diaphragmatic attenuation artifact. However, the distal inferior wall still has a perfusion defect. The gated study shows normal LV systolic function with calculated LVEF of 63%. LV cavity is normal in size. The gated study shows reduced thickening and contractility in the distal part of inferior wall. Resting study shows diminished tracer uptake in the distal part of inferior wall. There is improvement with CT attenuation correction suggestive of diaphragmatic attenuation artifact. Gating at rest reveals possibly reduced thickening in the distal inferior wall and LVEF of 61%. The findings are consistent with distal inferior defect with reversible and fixed components. NM/NM cardiolite stress test Impression: 1. Myocardial perfusion imaging study shows ischemia/infarct pattern in the distal inferior wall. 2. Gated LVEF is 63% during stress and 61% during rest. 3. Transient ischemic dilatation not present. EKG component of the test reported separately. Electronically signed by: Anish Ortiz MD 12/31/2024 12:25 PM [facility] Dictated By: Anish Ortiz MD Signed By: <Electronically signed by Anish Ortiz MD in OV> 12/31/24 1225 DD/ 0935 TD/TT: 12/30/24 0845 3D Artist: Procedure Note Donotuseinterpreter, Image - 11/06/[address] [address] Nuclear Medicine Report Signed Patient: Meaghan Elliott#: [id number] 619 : 9Acct:[id number] Age/Sex: 64 / MADM Date: 12/29/24 [facility] Attending Dr: Anish Ortiz MD Ordering Physician: Anish Ortiz MD Date of Service: 12/29/24 Procedure(s): NM cardiolite stress test Accession Number(s): [id number] cc: Mathieu Varela MD; Anish Ortiz MD Reason for Exam: R07.2 - Precordial pain Lexiscan Myocardial perfusion study Indication: Chest pain Technique: The patient was brought in for a Lexiscan perfusion study on 12/29/2024 and was injected 0.4 mg of Lexiscan intravenously. Within a minute of this injection 30 mCi of sestamibi was given intravenously. Images were obtained using the SPECT gamma camera interlaced with the gating device. Images were obtained in supine position. Resting perfusion study was performed on 12/30/2024. Patient was administered 30 mCi of sestamibi intravenously at rest. Images were then obtained in supine position. Total DLP 137 mGy-cm. Images were processed with the software and compared side to side in short axis, horizontal long axis and vertical long axis views. Findings: Raw aquisition reviewed. Arms by the patient's side. The stress perfusion study showed diminished tracer uptake along the inferior wall. There is improvement with CT attenuation correction suggestive of components of diaphragmatic attenuation artifact. However, the distal inferior wall still has a perfusion defect. The gated study shows normal LV systolic function with calculated LVEF of 63%. LV cavity is normal in size. The gated study shows reduced thickening and contractility in the distal part of inferior wall. Resting study shows diminished tracer uptake in the distal part of inferior wall. There is improvement with CT attenuation correction suggestive of diaphragmatic attenuation artifact. Gating at rest reveals possibly reduced thickening in the distal inferior wall and LVEF of 61%. The findings are consistent with distal inferior defect with reversible and fixed components. NM/NM cardiolite stress test Impression: 1. Myocardial perfusion imaging study shows ischemia/infarct pattern in the distal inferior wall. 2. Gated LVEF is 63% during stress and 61% during rest. 3. Transient ischemic dilatation not present. EKG component of the test reported separately. Electronically signed by: Anish Ortiz MD 12/31/2024 12:25 PM EST RP Dictated By: Anish Ortiz MD Signed By: <Electronically signed by Ansih Ortiz MD inOV> 12/31/24 1225 DD/ 0935 TD/TT: 12/30/24 0845 3D Artist: [facility] External Provider CV STRE SS PROCEDURES Final Result Performing Organization Address City/State/[facility] Co de Phone Number [facility] [address] [place] [address] * CT Lung Screening Low dose (05/18/2024 2:01 PM EDT) Anatomical Region Laterality Modality Lung Computed Tomogra phy 05/18/2024 2:01 PM EDT Narrative 05/18/2024 2:03 PM EDT [place] [address] CT Scan Report Signed Patient: Shadi Elliott MR#: [id number] 619 : 1960 Acct:[id number] Age/Sex: 63 / M ADM Date: 05/15/24 Loc: HO.CT Attending Dr: Melanie Gill PA-C Ordering Physician: Melanie Gill PA-C Date of Service: 05/15/24 Procedure(s): CT lung screening Accession Number(s): [id number] cc: Mathieu Varela MD; Melanie Gill PA-C Report Number: [id number]: Total DLP = 61.00 mGy-cm CLINICAL HISTORY: [...] 05/18/24 1402 DD/ 1401 TD/TT: 05/18/24 1401 3D Artist: Procedure Note Donotuseinterpreter, Image - 05/18/[address] [place] [address] [address] Scan Report Signed Patient: Meaghan Elliott#: [id number] 619 : 9Acct:[id number] Age/Sex: 63 / MADM Date: 05/15/24 Loc: .CT Attending Dr: Melanie Gill PA-C Ordering Physician: Melanie Gill PA-C Date of Service: 05/15/24 Procedure(s): CT lung screening Accession Number(s): [id number] cc: Mathieu Varela MD; Melanie Gill PA-C Report Number: [id number]: Total DLP = 61.00 mGy-cm CLINICAL HISTORY: [...] 05/18/24 1402 DD/ 1401 TD/TT: 05/18/24 1401 3D Artist: [facility] External Provider IMG CT PROCEDURES Final Result * Hm Colonoscopy (04/01/2024) Colonoscopy Normal Normal Narrative Aura Ritchie - 04/01/2024 Recommended 3-5 years . See see external hospital admission note on with result date us Historical Provider HEALTH MAINTENANCE Final Result * Hepatitis C Antibody with Reflex to HCV, RNA, Quantitative, Real-Time PCR (07/01/2023 10:23 AM EDT) Hepatitis C Antibody Nonreactive Nonreactive [facility] Comment:Antibodies to HCV no t detected; does not exclude early acuteHCV infection. Blood Venous blood specimen / Unknown 07/01/2023 10:23 AM EDT 07/01/2023 2:07 PM EDT Mathieu Varela MD LAB BLOOD ORDERABLES Final Result [facility] [address] [place] [phone] * (ABNORMAL) Lipid Panel, Standard (07/01/2023 10:23 AM EDT) Triglycerides 74 <150 mg/dL [facility] Comment:Desirable Triglyceri de: less than 150 mg/dLBorderline High Triglyceride 150-199 mg/dLHigh Triglyceride: 200-499 mg/dLVery High Triglyceride: greater than or equal to 5OO mg/dL Cholesterol 147 <200 mg/dL [facility] Comment:Desirable Cholestero l: less than 200 mg/dLBorderline High Cholesterol: 200-239 mg/dLHigh Cholesterol: greater than 239 mg/dL LDL Cholesterol Calculated 95 <100 mg/dL [facility] Comment:Desirable LDL: less than 100 mg/dLNear Optimal/Above Optimal LDL: 110- 129 mg/dLBorderline High LDL: 130-159 mg/dLHigh LDL: 160-189 mg/dLVery High LDL: greater than or equal to 190 mg/dL HDL Cholesterol 38(L) >40 mg/dL [facility] Comment:Desirable HDL: great er than 40 mg/dL Note: This HDL assay may give artificially low results in patients with liver disease. Blood Venous blood specimen / Unknown 07/01/2023 10:23 AM EDT 07/01/2023 2:07 PM EDT Mathieu Varela MD LAB BLOOD ORDERABLES Final Result [facility] [address] [place] [address] [phone] from Last 3 Months or Most Recently Relevant to Health Maintenance [place], [place] MEDICARE [facility] STANDARD Care Teams Support Services Tech Relationship Specialty Start Date End Date Mathieu Varela MD [address] [place] [phone] PCP - General Internal Medicine 07/06/13
--- OUTSIDE RECORDS SUMMARY | 2025-01-25 15:41 | XMS_ITS | Encounter Summary ---
Author Organization [employer] Address [address] [facility] 7t [place] [address] Care Team Providers Care Technical Solutions Director Name Role Phone Mathieu Varela MD Primary Care Provider Reason for Visit * Reason Onset Date Comments Call Back Request 06/20/2023 Encounter Details Date Type Department Care Team ([facility] st Contact Info) Description 06/20/2023 Telephone [facility] MED & PEDS [address] [place] [address] Mathieu Varela MD [address] [place] [address] Call Back Request Social History Tobacco Use [...] message would be relayed to their manager wind to relay message to PAR. Pt agrees to f/u on 06/28/23. * Telephone Encounter - Corazon Casey - 06/20/2023 3:04 PM EDT Tc from pt requesting to speak with a nurse in regards to refusal on refill for hydrOXYzine HCl (Atarax) 25 MG tablet Please contact pt at [phone] documented in this encounter Plan of Treatment Not on file documented as of this encounter Visit Diagnoses Not on filedocumented in this encounter Care Teams Technical Solutions Director Relationship Specialty Start Date End Date Mathieu Varela MD [address] [place] [id number] PCP - General Internal Medicine 07/06/13 documented as of this encounter
--- OUTSIDE RECORDS SUMMARY | 2025-01-25 15:41 | XMS_ITS | Encounter Summary ---
Author Organization [employer] Address [address] [facility] 7t [place] [address] Care Team Providers Care Bituminous Distributor Operator Name Role Phone Mathieu Varela MD Primary Care Provider [phone] Encounter Details Date Type Department Care Team (Late st Contact Info) Description 07/24/2022 Orders Only [facility] MED & PEDS [address] [place], [place] [phone] Amarilys Ewing LPN Social History Tobacco Use [...] on filedocumented in this encounter Care Teams Bituminous Distributor Operator Relationship Specialty Start Date End Date Mathieu Varela MD [address] [place] [address] PCP - General Internal Medicine 07/06/13 documented as of this encounter
--- OUTSIDE RECORDS SUMMARY | 2025-01-25 15:41 | XMS_ITS | Encounter Summary ---
Author Organization [employer] Address [address] [facility] [address]t [place] [address] Care Team Providers Care Donor Relations Associate Name Role Phone Mathiue Varela MD Primary Care Provider Encounter Details Date Type Department Care Team (Late st Contact Info) Description 01/09/2023 Orders Only [facility] MED & PEDS [address] [place] [address] Mathieu Varela MD [address] [place] [address] Recurrent major depressive disorder, in partial remission [...] (CMS/HCC) documented in this encounter Care Teams Donor Relations Associate Relationship Specialty Start Date End Date Mathieu Varela MD [address] [place] [address] PCP - General Internal Medicine 07/06/13 documented as of this encounter
--- OUTSIDE RECORDS SUMMARY | 2025-01-25 15:41 | XMS_ITS | Encounter Summary ---
Author Organization [employer] Address [address] [facility] [address] [place] [address] Care Team Providers Care Hat Renovator Name Role Phone Mathieu Varela MD Primary Care Provider Reason for Visit * Reason Comments Med Refill Encounter Details Date Type Department Care Team (Late st Contact Info) Description 04/28/2023 Refill [facility] MED & PEDS [address] [place] [address] Mathieu Varela MD [address] [place] [address] Psoriasiform dermatitis Social History Tobacco Use Types [...] disorders documented in this encounter Care Teams Hat Renovator Relationship Specialty Start Date End Date Mathieu Varela MD [address] [place] [address] PCP - General Internal Medicine 07/06/13 documented as of this encounter
--- OUTSIDE RECORDS SUMMARY | 2025-01-25 15:41 | XMS_ITS | Encounter Summary ---
Author Organization [employer] Address [address] [facility] 7t [place] [address] Care Team Providers Care Electrical Automation Engineer Name Role Phone Mathieu Varela MD Primary Care Provider Reason for Visit * Reason Comments Med Refill Encounter Details Date Type Department Care Team (Late st Contact Info) Description 12/04/2022 Refill [facility] [address] [place] [address] Mathieu Varela MD [address] [place], [place] [phone] Social History Tobacco Use Types Packs/Day Years [...] on filedocumented in this encounter Care Teams Electrical Automation Engineer Relationship Specialty Start Date End Date Mathieu Varela MD [address] [place] [address] PCP - General Internal Medicine 07/06/13 documented as of this encounter
--- OUTSIDE RECORDS SUMMARY | 2025-01-25 15:41 | XMS_ITS | Encounter Summary ---
Author Organization [employer] Address 75 [facility] 7t [place] [address] Care Team Providers Care Passport Support Associate Name Role Phone Mathieu Varela MD Primary Care Provider Reason for Visit * Reason Comments Med Refill Encounter Details Date Type Department Care Team (Late st Contact Info) Description 03/31/2024 Refill [facility] MED & PEDS 505 [place], [place] [phone] Mathieu Varela MD 505 [place], [place] [phone] Other male erectile dysfunction Social History Tobacco [...] documented as of this encounter Care Teams Passport Support Associate Relationship Specialty Start Date End Date Mathieu Varela MD [address] [place] [address] PCP - General Internal Medicine 07/06/13 documented as of this encounter
--- OUTSIDE RECORDS SUMMARY | 2025-01-25 15:41 | XMS_ITS | Encounter Summary ---
Author Organization [employer] Address [address] [facility] 7t [place] [address] Care Team Providers Care Machine Crater Name Role Phone Mathieu Varela MD Primary Care Provider Encounter Details Date Type Department Care Team (Late st Contact Info) Description 08/14/2022 Orders Only [facility] MED & PEDS 505 [place] [address] Susanne Cruz LPN Social History Tobacco Use [...] on filedocumented in this encounter Care Teams Machine Crater Relationship Specialty Start Date End Date Mathieu Varela MD 505 [place] [address] PCP - General Internal Medicine 07/06/13 documented as of this encounter
--- OUTSIDE RECORDS SUMMARY | 2025-01-25 15:41 | XMS_ITS | Encounter Summary ---
Author Organization [employer] Address [address] [facility] 7t [place] [address] Care Team Providers Care Lathe Spotter Name Role Phone Mathieu Varela MD Primary Care Provider Reason for Visit * Reason Onset Date Comments Appointment Request 04/07/2024 Encounter Details Date Type Department Care Team (Late st Contact Info) Description 04/07/2024 Telephone [facility] MEDICINE [address] [place] [address] Mathieu Varela MD 505 [place], [place] [phone] Appointment Request Social History Tobacco Use Types [...] or over the phone. Contact Pt at [phone] documented in this encounter Plan of Treatment Not on file documented as of this encounter Visit Diagnoses Not on filedocumented in this encounter Additional Health Concerns Assessment Noted Time PHQ-9 Depression Total Score: 6 09/04/19 10:46 AM EDT documented as of this encounter Care Teams Lathe Spotter Relationship Specialty Start Date End Date Mathieu Varela MD [address] [place] [address] PCP - General Internal Medicine 07/06/13 documented as of this encounter
--- OUTSIDE RECORDS SUMMARY | 2025-01-25 15:41 | XMS_ITS | Encounter Summary ---
Author Organization [employer] Address [address] [facility] 7t [place] [address] Care Team Providers Care Assessment Specialist Name Role Phone Mathieu Varela MD Primary Care Provider Reason for Visit * Reason Comments Med Refill Encounter Details Date Type Department Care Team (Late st Contact Info) Description 09/19/2022 Refill [facility] MED & PEDS 505 [place], [place] [phone] Mathieu Varela MD [address] [place], [place] [phone] Recurrent major depressive disorder, in partial remission [...] (CMS/HCC) documented in this encounter Care Teams Assessment Specialist Relationship Specialty Start Date End Date Mathieu Varela MD 505 [place] [address] PCP - General Internal Medicine 07/06/13 documented as of this encounter
--- OUTSIDE RECORDS SUMMARY | 2025-01-25 15:41 | XMS_ITS | Clinical Summary ---
Author Organization [facility], Address [address] [place] [address] [place] [address] Phone Care Team Providers Care Corporate Compliance Director Name Role Phone Mathieu Varela MD Primary Care Provider [phone] Allergies No known active allergies Medications buPROPion [...] age to complete this topic Insurance Medicaid [place] Care Teams Corporate Compliance Director Relationship Specialty Start Date End Date Mathieu Varela MD PCP - General 12/30/18
--- OUTSIDE RECORDS SUMMARY | 2025-01-25 15:41 | XMS_ITS | Encounter Summary ---
Author Organization [facility], Address [address] [place] [address] Phone Care Team Providers Care Cracking Still Operator Name Role Phone Mathieu Varela MD Primary Care Provider [phone] Encounter Details Date Type Department Care Team (Late st Contact Info) Description 10/05/2019 Orders Only [facility] [address] [place] [phone] Yulia Rosado MD Chronic kidney disease stage [...] disorder documented in this encounter Care Teams Cracking Still Operator Relationship Specialty Start Date End Date Mathieu Varela MD PCP - General 12/30/18 documented as of this encounter
--- OUTSIDE RECORDS SUMMARY | 2025-01-25 15:41 | XMS_ITS | Encounter Summary ---
Author Organization [employer] Address 75 [facility] 7t [place] [address] Care Team Providers Care Cushion Stuffer Name Role Phone Mathieu Varela MD Primary Care Provider Reason for Visit * Reason Comments Med Refill Encounter Details Date Type Department Care Team (Late st Contact Info) Description 11/23/2022 Refill [facility] CH[facility] MED & PEDS 505 [place], [place] [phone] Mathieu Varela MD 505 [place], [place] [phone] Recurrent major depressive disorder, in partial remission [...] (CMS/HCC) documented in this encounter Care Teams Cushion Stuffer Relationship Specialty Start Date End Date Mathieu Varela MD 505 [place] [address] PCP - General Internal Medicine 07/06/13 documented as of this encounter
--- OUTSIDE RECORDS SUMMARY | 2025-01-25 15:41 | XMS_ITS | Encounter Summary ---
Author Organization [employer] Address [address] [facility] 7 [place] [address] Care Team Providers Care Section Hand Name Role Phone Mathieu Varela MD Primary Care Provider Reason for Referral * Consultation (Routine) - Canceled Specialty Diagnoses / Procedures Referred By Kristine nino Referred To Contact Cardiology Diagnoses Palpitations Mathieu Varela MD 505 [place] [address] Phone: tel: fax: Referral ID Status Reason Start Date Expiration Date Visits Requested Visits Authorized [id number] Canceled Specialty Services Required 10/16/2024 10/16/2025 1 1 Encounter Details Date Type Department Care Team (Late st Contact Info) Description 10/16/2024 Orders Only [facility] MED & PEDS [address] [place] [address] Mathieu Varela MD [address] [place], [place] [phone] Palpitations (Primary Dx) Social History Tobacco Use [...] documented as of this encounter Care Teams Section Hand Relationship Specialty Start Date End Date Mathieu Varela MD [address] [place] [address] PCP - General Internal Medicine 07/06/13 documented as of this encounter
== END 2025-01-25 13:34 | disposition home or self-care (01) ==
LOC: HO.HCS 11:51
PROVIDERS: PCP Internal Medicine; Visit Provider Nurse Practitioner Family
DX: R07.2 Precordial pain (principal); I10 Essential (primary) hypertension; E78.00 Pure hypercholesterolemia, unspecified; R94.39 Abnormal result of other cardiovascular function study
CPT/HCPCS: 99214; G2211

== ENCOUNTER → 2025-01-25 11:50 | Outpatient (BNVA) | payer MEDICARE, MEDICAID, SELFPAY | PROVIDERS: PCP Internal Medicine; Visit Provider Nurse Practitioner Family | DX: R07.2 Precordial pain (principal); Z87.891 Personal history of nicotine dependence; I10 Essential (primary) hypertension; E78.00 Pure hypercholesterolemia, unspecified; R94.39 Abnormal result of other cardiovascular function study | CPT/HCPCS: 99212 ==

== ENCOUNTER 2025-02-04 11:46 | Outpatient (REF) | payer MEDICARE, MEDICAID, SELFPAY ==
[2025-02-04 12:49] LABS: Anion Gap 10 (12-20); Blood Urea Nitrogen 12 mg/dL (9-16); Calcium 8.9 mg/dL (8.4-10.2); Carbon Dioxide 25 mmol/L (22-29); Chloride 110 mmol/L (96-108); Estimated Glomerular Filt Rate 43; Potassium 4.4 mmol/L (3.3-5.1); Sodium 141 mmol/L (135-145)
--- OUTSIDE RECORDS SUMMARY | 2025-02-04 18:16 | XMS_ITS | Encounter Summary ---
Author Organization [employer] Address 75 [facility] 7t [place] [address] Care Team Providers Care Solar Energy Advisor Name Role Phone Mathieu Varela MD Primary Care Provider [phone] Reason for Visit * Reason Comments Med Refill Encounter Details Date Type Department Care Team (Late st Contact Info) Description 04/28/2023 Refill [facility] CH[facility] MED & PEDS [address] [place] [address] Mathieu Varela MD 505 [place] [address] Psoriasiform dermatitis Social History Tobacco Use Types [...] disorders documented in this encounter Care Teams Solar Energy Advisor Relationship Specialty Start Date End Date Mathieu Varela MD 505 [place] [address] PCP - General Internal Medicine 07/06/13 documented as of this encounter
--- OUTSIDE RECORDS SUMMARY | 2025-02-04 18:16 | XMS_ITS | Encounter Summary ---
Author Organization [employer] Address [address] [facility] 7t [place] [address] Care Team Providers Care Asset Protection Associate Name Role Phone Mathieu Varela MD Primary Care Provider Encounter Details Date Type Department Care Team (Late st Contact Info) Description 07/24/2022 Orders Only [facility] CHC MED & PEDS 505 [place], [place] [phone] Amarilys Ewing LPN Social History Tobacco Use [...] on filedocumented in this encounter Care Teams Asset Protection Associate Relationship Specialty Start Date End Date Mathieu Varela MD 505 [place] [address] PCP - General Internal Medicine 07/06/13 documented as of this encounter
--- OUTSIDE RECORDS SUMMARY | 2025-02-04 18:16 | XMS_ITS | Encounter Summary ---
Author Organization [employer] Address 75 [facility] 7t [place] [address] Care Team Providers Care Facilities Management Executive Name Role Phone Mathieu Varela MD Primary Care Provider Encounter Details Date Type Department Care Team (Late st Contact Info) Description 08/14/2022 Orders Only [facility] CHC MED & PEDS [address] [place] [address] Susanne Cruz LPN Social History Tobacco Use [...] on filedocumented in this encounter Care Teams Facilities Management Executive Relationship Specialty Start Date End Date Mathieu Varela MD 505 [place] [address] PCP - General Internal Medicine 07/06/13 documented as of this encounter
--- OUTSIDE RECORDS SUMMARY | 2025-02-04 18:16 | XMS_ITS | Encounter Summary ---
Author Organization [employer] Address [address] [facility] 7t [place] [address] Care Team Providers Care Shoe Salesperson Name Role Phone Mathieu Varela MD Primary Care Provider Reason for Visit * Reason Comments Med Refill Encounter Details Date Type Department Care Team (Late st Contact Info) Description 11/23/2022 Refill [facility] MED & PEDS 505 [place], [place] [phone] Mathieu Varela MD [address] [place], [place] [phone] Recurrent major depressive disorder, in partial remission [...] (CMS/HCC) documented in this encounter Care Teams Shoe Salesperson Relationship Specialty Start Date End Date Mathieu Varela MD 505 [place] [address] PCP - General Internal Medicine 07/06/13 documented as of this encounter
--- OUTSIDE RECORDS SUMMARY | 2025-02-04 18:16 | XMS_ITS | Encounter Summary ---
Author Organization [employer] Address [address] [facility] 7t [place] [address] Care Team Providers Care In Processing Instructor Name Role Phone Mathieu Varela MD Primary Care Provider Encounter Details Date Type Department Care Team (Late st Contact Info) Description 11/09/2022 Orders Only [facility] MED & PEDS 505 [place], [place] [phone] Nikki Guadalupe LPN Social History Tobacco Use [...] on filedocumented in this encounter Care Teams In Processing Instructor Relationship Specialty Start Date End Date Mathieu Varela MD [address] [place] [address] PCP - General Internal Medicine 07/06/13 documented as of this encounter
--- OUTSIDE RECORDS SUMMARY | 2025-02-04 18:16 | XMS_ITS | Encounter Summary ---
Author Organization [employer] Address [address] [facility] 7t [place] [address] Care Team Providers Care Home Health Occupational Therapist Name Role Phone Mathieu Varela MD Primary Care Provider Encounter Details Date Type Department Care Team (Late st Contact Info) Description 01/09/2023 Orders Only [facility] CHC MED & PEDS [address] [place] [address] Mathieu Varela MD [address] [place] [address] Recurrent major depressive disorder, in partial remission [...] (CMS/HCC) documented in this encounter Care Teams Home Health Occupational Therapist Relationship Specialty Start Date End Date Mathieu Varela MD [address] [place] [address] PCP - General Internal Medicine 07/06/13 documented as of this encounter
--- OUTSIDE RECORDS SUMMARY | 2025-02-04 18:16 | XMS_ITS | Encounter Summary ---
Author Organization [employer] Address [address] [facility] 7t [place] [address] Care Team Providers Care Therapy Aide Name Role Phone Mathieu Varela MD Primary Care Provider Reason for Visit * Reason Comments Med Refill Encounter Details Date Type Department Care Team (Late st Contact Info) Description 09/19/2022 Refill [facility] CHC MED & PEDS 505 [place], [place] [phone] Mathieu Varela MD 505 [place], [place] [phone] Recurrent major depressive disorder, in partial remission [...] (CMS/HCC) documented in this encounter Care Teams Therapy Aide Relationship Specialty Start Date End Date Mathieu Varela MD [address] [place] [address] PCP - General Internal Medicine 07/06/13 documented as of this encounter
--- OUTSIDE RECORDS SUMMARY | 2025-02-04 18:17 | XMS_ITS | Encounter Summary ---
Author Organization [employer] Address 75 [facility] 7t [place] [address] Care Team Providers Care Grouter Helper Name Role Phone Mathieu Varela MD Primary Care Provider Reason for Visit * Reason Comments Med Refill Encounter Details Date Type Department Care Team (Late st Contact Info) Description 03/31/2024 Refill [facility] CHC MED & PEDS 505 [place], [place] [phone] Mathieu Varela MD 505 [place], [place] [phone] Other male erectile dysfunction Social History Tobacco [...] documented as of this encounter Care Teams Grouter Helper Relationship Specialty Start Date End Date Mathieu Varela MD [address] [place] [address] PCP - General Internal Medicine 07/06/13 documented as of this encounter
--- OUTSIDE RECORDS SUMMARY | 2025-02-04 18:17 | XMS_ITS | Encounter Summary ---
Author Organization [employer] Address [address] [facility] 7t [place] [address] Care Team Providers Care Textile Technologist Name Role Phone Mathieu Varela MD Primary Care Provider Reason for Visit * Reason Comments Med Refill Encounter Details Date Type Department Care Team ([facility] st Contact Info) Description 02/04/2025 Refill [facility] CHC MED & PEDS [address] [place], [place] [phone] Mathieu Varela MD 505 [place] [address] Social History Tobacco Use Types Packs/Day Years [...] documented as of this encounter Care Teams Textile Technologist Relationship Specialty Start Date End Date Mathieu Varela MD [address] [place] [address] PCP - General Internal Medicine 07/06/13 documented as of this encounter
--- OUTSIDE RECORDS SUMMARY | 2025-02-04 18:17 | XMS_ITS | Encounter Summary ---
Author Organization [employer] Address 75 [facility] 7t [place] [address] Care Team Providers Care Education Analyst Name Role Phone Mathieu Varela MD Primary Care Provider Encounter Details Date Type Department Care Team (Late st Contact Info) Description 02/04/2025 Orders Only GENERIC EXTERNAL DATA DEPARTMENT Provider, Generic External Data Social History Tobacco Use Types Packs/Day Years [...] on file documented as of this encounter Procedures Procedure Name Priority Date/Time Associated Diagnosis Comments BASIC METABOLIC PANEL Routine 02/04/2025 11:54 AM EST documented in this encounter Results * (ABNORMAL) Basic Metabolic Panel (02/04/2025 11:54 AM EST) Sodium 141 135 - 145 mmol/L [facility] Potassium 4.4 3.3 - 5.1 mmol/L [facility] Chloride 110(H) 96 - 108 mmol/L [facility] Carbon Dioxide 25 22 - 29 mmol/L [facility] Anion Gap 10(L) 12 - 20 [facility] Urea Nitrogen (BUN) 12 9 - 16 mg/dL [facility] Creatinine, Serum 1.62(H) 0.5 - 1.4 mg/dL [facility] Estimated Glomerular Filt Rate 43 [facility] Comment:Chronic Kidney Disea se: Estimated GFR < 60 mL/min/[id number] Kidney Disease: Estimated GFR < 15 mL/min/1.73m2 Glucose 85 60 - 115 mg/dL [facility] Calcium 8.9 8.4 - 10.2 mg/dL [facility] 02/04/2025 11:5 4 AM EST 02/04/2025 11:56 AM EST us Generic External Data Provider LAB BLOOD ORDERAB LES Final Result [facility] [address] [place] [address] [phone] documented in this encounter Visit Diagnoses Not on filedocumented in this encounter Additional Health Concerns Assessment Noted Time PHQ-9 Depression Total Score: 9 09/15/19 25 2:51 PM EDT documented as of this encounter Care Teams Education Analyst Relationship Specialty Start Date End Date Mathieu Varela MD [address] [place] [address] PCP - General Internal Medicine 07/06/13 documented as of this encounter
--- OUTSIDE RECORDS SUMMARY | 2025-02-04 18:17 | XMS_ITS | Encounter Summary ---
Author Organization [employer] Address 75 [facility] 7t [place] [address] Care Team Providers Care Auto Apprentice Mechanic Name Role Phone Mathieu Varela MD Primary Care Provider Reason for Visit * Reason Comments Med Refill Encounter Details Date Type Department Care Team (Late st Contact Info) Description 12/04/2022 Refill C [facility] [address] [place] [address] Mathieu Varela MD [address] [place], [place] [phone] Social History Tobacco Use Types Packs/Day Years [...] on filedocumented in this encounter Care Teams Auto Apprentice Mechanic Relationship Specialty Start Date End Date Mathieu Varela MD [address] [place] [address] PCP - General Internal Medicine 07/06/13 documented as of this encounter
--- OUTSIDE RECORDS SUMMARY | 2025-02-04 18:17 | XMS_ITS | Encounter Summary ---
Author Organization [employer] Address [address] [facility] 7t [place] [address] Care Team Providers Care Flat Optical Element Maker Name Role Phone Mathieu Varela MD Primary Care Provider Reason for Visit * Reason Onset Date Comments Appointment Request 04/07/2024 Encounter Details Date Type Department Care Team (Late st Contact Info) Description 04/07/2024 Telephone [facility] MEDICINE [address] [place] [address] Mathieu Varela MD [address] [place], [place] [phone] Appointment Request Social History Tobacco Use Types [...] or over the phone. Contact Pt at [phone] documented in this encounter Plan of Treatment Not on file documented as of this encounter Visit Diagnoses Not on filedocumented in this encounter Additional Health Concerns Assessment Noted Time PHQ-9 Depression Total Score: 6 09/04/19 10:46 AM EDT documented as of this encounter Care Teams Flat Optical Element Maker Relationship Specialty Start Date End Date Mathieu Varela MD [address] [place] [address] PCP - General Internal Medicine 07/06/13 documented as of this encounter
--- OUTSIDE RECORDS SUMMARY | 2025-02-04 18:17 | XMS_ITS | Encounter Summary ---
Author Organization [employer] Address 75 [facility] 7t [place] [address] Care Team Providers Care Legal Document Assistant Name Role Phone Mathieu Varela MD Primary Care Provider Reason for Visit * Reason Onset Date Comments Call Back Request 06/20/2023 Encounter Details Date Type Department Care Team ([facility] st Contact Info) Description 06/20/2023 Telephone [facility] CHC MED & PEDS [address] [place] [address] Mahtieu Varela MD [address] [place] [address] Call Back Request Social History Tobacco Use [...] Informed message would be relayed to their farm manager to relay message to PAR. Pt agrees to f/u on 06/28/23. * Telephone Encounter - Corazon Casey - 06/20/2023 3:04 PM EDT Tc from pt requesting to speak with a nurse in regards to refusal on refill for hydrOXYzine HCl (Atarax) 25 MG tablet Please contact pt at [phone] documented in this encounter Plan of Treatment Not on file documented as of this encounter Visit Diagnoses Not on filedocumented in this encounter Care Teams Legal Document Assistant Relationship Specialty Start Date End Date Mathieu Varela MD [address] [place] [address] PCP - General Internal Medicine 07/06/13 documented as of this encounter
--- OUTSIDE RECORDS SUMMARY | 2025-02-04 18:17 | XMS_ITS | Clinical Summary ---
Author Organization [employer] Address 75 [facility] 7t [place] [address] Care Team Providers Care Tooth Polisher Name Role Phone Mathieu Varela MD [...] bedtime. 90 tablet 1 10/22/19 25 Active buPROPion SR (Wellbutrin SR) 150 MG 12 hr tabletIndication s:Recurrent major depressive disorder, in partial remission ([facility]/HCC) TAKE 1 TABLET BY MOUTH EVERY 12 HOURS. DO NOT CRUSH, CHEW, OR SPLIT. 180 tablet 2 11/24/19 25 Active topiramate 50 MG tablet TAKE 1 TABLET BY MOUTH EVERY DAY 90 tablet 02/05/20 25 Active topiramate 50 MG tablet TAKE 1 TABLET BY MOUTH EVERY DAY 90 tablet 11/03/19 25 025 Discontinued Active Problems Problem Noted Date Diagnosed Date Erectile dysfunction 03/31/2024 Hypertensive disorder 03/04/2019 Stage 3b chronic kidney disease ([facility]/HCC) 2019 Hypercholesterolemia 01/15/2013 Angina pectoris 08/21/2011 Benign hypertension 08/21/2011 Chronic obstructive lung disease 08/21/2011 Multiple joint pain 08/21/2011 Encounters Date Type Department Care Team Description 02/04/2025 Orders Only GENERIC EXTERNAL DATA DEPARTMENT Provider, Generic External Data 02/04/2025 Refill [facility] MED & PEDS [address] [place] [address] Mathieu Varela MD 12/29/2024 Orders Only [facility] External Provider, [facility] 11/21/2024 Refill [facility] MED & PEDS [address] [place] [address] Mathieu Varela MD Recurrent major depressive disorder, in partial remission ([facility]/HCC) from Last 3 Months Immunizations Immunization Administration [...] Smoking Tobacco: Former Cigarettes 1.5 47 1 - 2019 Smokeless Tobacco: Never Tobacco Cessation:Counseling [...] 06/28/2023, 07/22/2009 Hepatitis C Screening Completed 07/01/2023, 11/21/2 022 HIB Vaccines Aged Out No longer [...] METABOLIC PANEL Routine 02/04/2025 11:54 AM EST STRESS TEST WITH MYOCARDIAL PERFUSION Routine 12/29/2024 [...] Recently Relevant to Health Maintenance Results * (ABNORMAL) Basic Metabolic Panel (02/04/2025 11:54 AM EST) Sodium 141 135 - 145 mmol/L [facility] Potassium 4.4 3.3 - 5.1 mmol/L [facility] Chloride 110(H) 96 - 108 mmol/L [facility] Carbon Dioxide 25 22 - 29 mmol/L [facility] Anion Gap 10(L) 12 - 20 [facility] Urea Nitrogen (BUN) 12 9 - 16 mg/dL [facility] Creatinine, Serum 1.62(H) 0.5 - 1.4 mg/dL [facility] Estimated Glomerular Filt Rate 43 [facility] Comment:Chronic Kidney Disea se: Estimated GFR < 60 mL/min/1.23y0Bamlbh Kidney Disease: Estimated GFR < 15 mL/min/1.73m2 Glucose 85 60 - 115 mg/dL [facility] Calcium 8.9 8.4 - 10.2 mg/dL [facility] 02/04/2025 11:5 4 AM EST 02/04/2025 11:56 AM EST us Generic External Data Provider LAB BLOOD ORDERAB LES Final Result Performing Organization Address City/State/[facility] Co de Phone Number [facility] [address] [place] [phone] * Stress test with myocardial perfusion (12/29/2024 9:35 AM EST) 12/29/2024 9:35 AM EST Narrative [facility] - 12/31/2024 12:28 PM EST [address] [address] Nuclear Medicine Report Signed Patient: Shadi Elliott MR#: [id number] 619 : 1960 Acct:[id number] Age/Sex: 64 / M ADM Date: 12/29/24 Loc: [facility] Attending Dr: Anish Ortiz MD Ordering Physician: Anish Ortiz MD Date of Service: 12/29/24 Procedure(s): NM cardiolite stress test Accession Number(s): [id number] cc: Mathieu Varela MD; Anish Ortiz MD [...] by: Anish Ortiz MD 12/31/2024 12:25 PM [facility] Dictated By: Anish Ortiz MD Signed By: <Electronically signed by Anish Ortiz MD in OV> 12/31/24 1225 DD/ 0935 TD/TT: 12/30/24 0845 Milieu Coordinator: Procedure Note Donotuseinterpreter, Image - 12/31/[address] [address] Nuclear Medicine Report Signed Patient: Meaghan Elliott#: [id number] [id number] : 9Acct:[id number] Age/Sex: 64 / MADM Date: 12/29/24 Loc: [facility].CARD Attending Dr: Anihs Ortiz MD Ordering Physician: Anish Ortiz MD Date of Service: 12/29/24 Procedure(s): NM cardiolite stress test Accession Number(s): [id number] cc: Mathieu Varela MD; Anish Ortiz MD [...] By: <Electronically signed by Anish Ortiz MD inOV> 12/31/24 1225 DD/ 0935 TD/TT: 12/30/24 0845 Milieu Coordinator: [facility] External Provider CV STRE SS PROCEDURES Final Result Performing Organization Address City/State/[facility] Co de Phone Number [facility] [address] [place] [phone] * CT Lung Screening Low dose (05/18/2024 2:01 PM EDT) Anatomical Region Laterality Modality Lung Computed Tomogra phy 05/18/2024 2:01 PM EDT Narrative 05/18/2024 2:03 PM EDT [address] [address] [address] Scan Report Signed Patient: Shadi Elliott MR#: [id number] : 1960 Acct:[id number] Age/Sex: 63 / M ADM Date: 05/15/24 Loc: HO.CT Attending Dr: Melanie Gill PA-C Ordering Physician: Melanie Gill PA-C Date of Service: 05/15/24 Procedure(s): CT lung screening Accession Number(s): [id number] cc: Mathieu Varela MD; Melanie Gill PA-C Report Number: [id number]: Total DLP = 61.00 mGy-cm CLINICAL HISTORY: [...] 05/18/24 1402 DD/ 1401 TD/TT: 05/18/24 1401 Milieu Coordinator: Procedure Note Donotuseinterpreter, Image - 05/18/[address] [place] [address] [address] Scan Report Signed Patient: Meaghan Elliott#: [id number] 619 : 9Acct:[id number] Age/Sex: 63 / MADM Date: 05/15/24 Loc: HO.CT Attending Dr: Melanie Gill PA-C Ordering Physician: Melanie Gill PA-C Date of Service: 05/15/24 Procedure(s): CT lung screening Accession Number(s): [id number] cc: Mathieu Varela MD; Melanie Gill PA-C Report Number: [id number]: Total DLP = 61.00 mGy-cm CLINICAL HISTORY: [...] 05/18/24 1402 DD/ 1401 TD/TT: 05/18/24 1401 Milieu Coordinator: [facility] External Provider IMG CT PROCEDURES Final Result * Hm Colonoscopy (04/01/2024) Colonoscopy Normal Normal Narrative Aura Ritchie - 04/01/2024 Recommended 3-5 years . See see external hospital admission note on with result date Historical Provider HEALTH MAINTENANCE Final Result * Hepatitis C Antibody with Reflex to HCV, RNA, Quantitative, Real-Time PCR (07/01/2023 10:23 AM EDT) Hepatitis C Antibody Nonreactive Nonreactive [facility] Comment:Antibodies to HCV no t detected; does not exclude early acuteHCV infection. Blood Venous blood specimen / Unknown 07/01/2023 10:23 AM EDT 07/01/2023 2:07 PM EDT us Mathieu Varela MD LAB BLOOD ORDERABLES Final Result Performing Organization Address [facility] Co de Phone Number [facility] [address] [place] [phone] * (ABNORMAL) Lipid Panel, Standard (07/01/2023 10:23 AM EDT) Triglycerides 74 <150 mg/dL [facility] Comment:Desirable Triglyceri de: less than 150 mg/dLBorderline High Triglyceride 150-199 mg/dLHigh Triglyceride: 200-499 mg/dLVery High Triglyceride: greater than or equal to 5OO mg/dL Cholesterol 147 <200 mg/dL [facility] Comment:Desirable Cholestero l: less than 200 mg/dLBorderline High Cholesterol: 200-239 mg/dLHigh Cholesterol: greater than 239 mg/dL LDL Cholesterol Calculated 95 <100 mg/dL [facility] Comment:Desirable LDL: less than 100 mg/dLNear Optimal/Above Optimal LDL: 110- 129 mg/dLBorderline High LDL: 130-159 mg/dLHigh LDL: 160-189 mg/dLVery High LDL: greater than or equal to 190 mg/dL HDL Cholesterol 38(L) >40 mg/dL [facility] Comment:Desirable HDL: great er than 40 mg/dL Note: This HDL assay may give artificially low results in patients with liver disease. Blood Venous blood specimen / Unknown 07/01/2023 10:23 AM EDT 07/01/2023 2:07 PM EDT us Mathieu Varela MD LAB BLOOD ORDERABLES Final Result Performing Organization Address [facility]/ZIP Co de Phone Number [facility] [address] [place] [phone] from Last 3 Months or Most Recently Relevant to Health Maintenance Insurance [place] [address] [place] [id number] [facility] * Guarantor: Shadi Elliott Account Type Relation to Patient Date of Phone Billing Address Personal/Family Self [place], [place] Care Teams Tooth Polisher Relationship Specialty Start Date End Date Mathieu Varela MD [address] [place] [address] PCP - General Internal Medicine 07/06/13
--- OUTSIDE RECORDS SUMMARY | 2025-02-04 18:17 | XMS_ITS | Encounter Summary ---
Author Organization [employer] Address 75 [facility] 7 [place] [address] Care Team Providers Care Jointer Submarine Cable Name Role Phone Mathieu Varela MD Primary Care Provider Reason for Referral * Consultation (Routine) - Canceled Specialty Diagnoses / Procedures Referred By Kristine nino Referred To Contact Cardiology Diagnoses Palpitations Mathieu Varela MD [address] [place] [address] Phone: tel: fax: Referral ID Status Reason Start Date Expiration Date Visits Requested Visits Authorized [id number] Canceled Specialty Services Required 10/16/2024 10/16/2025 1 1 Encounter Details Date Type Department Care Team (Late st Contact Info) Description 10/16/2024 Orders Only [facility] CHC MED & PEDS [address] [place] [address] Mathieu Varela MD [address] [place], [place] [phone] Palpitations (Primary Dx) Social History Tobacco Use [...] documented as of this encounter Care Teams Jointer Submarine Cable Relationship Specialty Start Date End Date Mathieu Varela MD [address] [place] [phone] PCP - General Internal Medicine 07/06/13 documented as of this encounter
== END 2025-02-04 11:47 ==
LOC: HO.LAB 11:46
PROVIDERS: PCP Internal Medicine; Visit Provider Internal Medicine
DX: R07.2 Precordial pain (principal)
CPT/HCPCS: 36415; 80048

== ENCOUNTER 2025-02-09 12:51 | Outpatient (REF) | payer MEDICARE, MEDICAID, SELFPAY ==
[2025-02-09 14:04] LABS: Anion Gap 9 (12-20); Blood Urea Nitrogen 13 mg/dL (9-16); Calcium 9.0 mg/dL (8.4-10.2); Carbon Dioxide 25 mmol/L (22-29); Chloride 110 mmol/L (96-108); Estimated Glomerular Filt Rate 42; Potassium 4.3 mmol/L (3.3-5.1); Sodium 140 mmol/L (135-145)
--- OUTSIDE RECORDS SUMMARY | 2025-02-09 16:41 | XMS_ITS | Encounter Summary ---
Author Organization [employer] Address 75 [facility] 7t [place] [address] Care Team Providers Care Extender Name Role Phone Mathieu Varela MD Primary Care Provider Reason for Visit * Reason Comments Med Refill Encounter Details Date Type Department Care Team (Late st Contact Info) Description 09/19/2022 Refill [facility] CHC MED & PEDS [address] [place], [place] [phone] Mathieu Varela MD [address] [place], [place] [phone] Recurrent major depressive disorder, in partial remission [...] (CMS/HCC) documented in this encounter Care Teams Extender Relationship Specialty Start Date End Date Mathieu Varela MD [address] [place] [address] PCP - General Internal Medicine 07/06/13 documented as of this encounter
--- OUTSIDE RECORDS SUMMARY | 2025-02-09 16:41 | XMS_ITS | Encounter Summary ---
Author Organization [employer] Address 75 [facility] 7t [place] [address] Care Team Providers Care Instructional Design Manager Name Role Phone Mathieu Varela MD [...] EST) Sodium 141 135 - 145 mmol/L [facility] Potassium 4.4 3.3 - 5.1 mmol/L [facility] Chloride 110(H) 96 - 108 mmol/L [facility] Carbon Dioxide 25 22 - 29 mmol/L [facility] Anion Gap 10(L) 12 - 20 [facility] Urea Nitrogen (BUN) 12 9 - 16 mg/dL [facility] Creatinine, Serum 1.62(H) 0.5 - 1.4 mg/dL [facility] Estimated Glomerular Filt Rate 43 [facility] Comment:Chronic Kidney Disea se: Estimated GFR < 60 mL/min/1.09n0Wrwnfh Kidney Disease: Estimated GFR < 15 mL/min/1.73m2 Glucose 85 60 - 115 mg/dL [facility] Calcium 8.9 8.4 - 10.2 mg/dL [facility] 02/04/2025 11:5 4 AM EST 02/04/2025 11:56 AM EST us Generic External Data Provider LAB BLOOD ORDERAB LES Final Result [facility] [address] [place] [phone] [phone] documented in this encounter Visit Diagnoses Not on filedocumented in this encounter Additional Health Concerns Assessment Noted Time PHQ-9 Depression Total Score: 9 09/15/19 25 2:51 PM EDT documented as of this encounter Care Teams Instructional Design Manager Relationship Specialty Start Date End Date Mathieu Varela MD [address] [place] [phone] PCP - General Internal Medicine 07/06/13 documented as of this encounter
--- OUTSIDE RECORDS SUMMARY | 2025-02-09 16:41 | XMS_ITS | Encounter Summary ---
Author Organization [employer] Address 75 [facility] 7 [place] [address] Care Team Providers Care Business School Dean Name Role Phone Mathieu Varela MD Primary Care Provider Reason for Referral * Consultation (Routine) - Canceled Specialty Diagnoses / Procedures Referred By Kristine nino Referred To Contact Cardiology Diagnoses Palpitations Mathieu Varela MD [address] [place] [address] Phone: tel: fax: Referral ID Status Reason Start Date Expiration Date Visits Requested Visits Authorized [id number] Canceled Specialty Services Required 10/16/2024 10/16/2025 1 1 Encounter Details Date Type Department Care Team (Late st Contact Info) Description 10/16/2024 Orders Only [facility] CHC MED & PEDS [address] [place] [address] Mathieu Varela MD [address] [place], [place] [phone] Palpitations (Primary Dx) Social History Tobacco Use [...] documented as of this encounter Care Teams Business School Dean Relationship Specialty Start Date End Date Mathieu Varela MD [address] [place] [phone] PCP - General Internal Medicine 07/06/13 documented as of this encounter
--- OUTSIDE RECORDS SUMMARY | 2025-02-09 16:41 | XMS_ITS | Encounter Summary ---
Author Organization [employer] Address 75 [facility] 7t [place] [address] Care Team Providers Care General Manager Food Name Role Phone Mathieu Varela MD Primary Care Provider Encounter Details Date Type Department Care Team (Late st Contact Info) Description 07/24/2022 Orders Only [facility] CHC MED & PEDS [address] [place], [place] [phone] Amarilys Ewing LPN Social History Tobacco Use [...] on filedocumented in this encounter Care Teams General Manager Food Relationship Specialty Start Date End Date Mathieu Varela MD [address] [place] [address] PCP - General Internal Medicine 07/06/13 documented as of this encounter
--- OUTSIDE RECORDS SUMMARY | 2025-02-09 16:41 | XMS_ITS | Encounter Summary ---
Author Organization [employer] Address 75 [facility] 7t [place] [address] Care Team Providers Care Energy Analyst Name Role Phone Mathieu Varela MD Primary Care Provider Reason for Visit * Reason Onset Date Comments Appointment Request 04/07/2024 Encounter Details Date Type Department Care Team (Late st Contact Info) Description 04/07/[address] [facility] [address] [place] [address] Mathieu Varela MD [address] [place], [place] [phone] Appointment Request Social History Tobacco Use Types [...] or over the phone. Contact Pt at [phone] documented in this encounter Plan of Treatment Not on file documented as of this encounter Visit Diagnoses Not on filedocumented in this encounter Additional Health Concerns Assessment Noted Time PHQ-9 Depression Total Score: 6 09/04/19 10:46 AM EDT documented as of this encounter Care Teams Energy Analyst Relationship Specialty Start Date End Date Mathieu Varela MD [address] [place] [phone] PCP - General Internal Medicine 07/06/13 documented as of this encounter
--- OUTSIDE RECORDS SUMMARY | 2025-02-09 16:41 | XMS_ITS | Patient Health Record ---
Author Organization [facility] Address [address] [place] [phone] Care Team Providers Care Bookmobile Driver Name Role Phone Mathieu Varela M.D. Primary Care Provider Un available Kike Orellana Unavailable [phone] Reason For Referral No Information Plan Of Treatment No Information Insurance Providers Payer Name Payer Address Payer Phone Subscriber Number Group Number Insured Name Patient Relationship to Insured Coverage Start Date Coverage End Date [facility] [address] [place] [address] [id number] WILL ROMEO Self - patient is the insured
--- OUTSIDE RECORDS SUMMARY | 2025-02-09 16:41 | XMS_ITS | Encounter Summary ---
Author Organization [employer] Address 75 [facility] 7t [place] [address] Care Team Providers Care Cost Recorder Name Role Phone Mathieu Varela MD Primary Care Provider Reason for Visit * Reason Comments Med Refill Encounter Details Date Type Department Care Team (Late st Contact Info) Description 04/28/2023 Refill [facility] CHC MED & PEDS [address] [place] [address] Mathieu Varela MD [address] [place] [address] Psoriasiform dermatitis Social History Tobacco Use Types [...] disorders documented in this encounter Care Teams Cost Recorder Relationship Specialty Start Date End Date Mathieu Varela MD [address] [place] [address] PCP - General Internal Medicine 07/06/13 documented as of this encounter
--- OUTSIDE RECORDS SUMMARY | 2025-02-09 16:41 | XMS_ITS | Encounter Summary ---
Author Organization [employer] Address 75 [facility] 7t [place] [address] Care Team Providers Care Bench Loom Weaver Name Role Phone Mathieu Varela MD Primary Care Provider Encounter Details Date Type Department Care Team (Late st Contact Info) Description 01/09/2023 Orders Only [facility] CHC MED & PEDS [address] [place] [address] Mathieu Varela MD [address] [place] [address] Recurrent major depressive disorder, in partial remission [...] (CMS/HCC) documented in this encounter Care Teams Bench Loom Weaver Relationship Specialty Start Date End Date Mathieu Varela MD [address] [place] [address] PCP - General Internal Medicine 07/06/13 documented as of this encounter
--- OUTSIDE RECORDS SUMMARY | 2025-02-09 16:41 | XMS_ITS | Encounter Summary ---
Author Organization [email or web address] Address 75 [facility] 7t [place] [address] Care Team Providers Care Cloth Printer Name Role Phone Mathieu Varela MD Primary Care Provider [phone] Reason for Visit * Reason Comments Med Refill Encounter Details Date Type Department Care Team ([facility] st Contact Info) Description 02/04/2025 Refill [facility] CHC MED & PEDS [address] [place], [place] [phone] Mathieu Varela MD [address] [place] [address] Social History Tobacco Use Types Packs/Day Years [...] documented as of this encounter Care Teams Cloth Printer Relationship Specialty Start Date End Date Mathieu Varela MD [address] [place] [phone] PCP - General Internal Medicine 07/06/13 documented as of this encounter
--- OUTSIDE RECORDS SUMMARY | 2025-02-09 16:41 | XMS_ITS | Encounter Summary ---
Author Organization [employer] Address 75 [facility] 7t [place] [address] Care Team Providers Care Global Logistics Analyst Name Role Phone Mathieu Varela MD Primary Care Provider Encounter Details Date Type Department Care Team (Late st Contact Info) Description 02/09/2025 Orders Only GENERIC EXTERNAL DATA DEPARTMENT Provider, [...] Associated Diagnosis Comments BASIC METABOLIC PANEL Routine 02/09/2025 1:03 PM EST documented in this encounter Results * (ABNORMAL) Basic Metabolic Panel (02/09/2025 1:03 PM EST) Sodium 140 135 - 145 mmol/L [facility] Potassium 4.3 3.3 - 5.1 mmol/L [facility] Chloride 110(H) 96 - 108 mmol/L [facility] Carbon Dioxide 25 22 - 29 mmol/L [facility] Anion Gap 9(L) 12 - 20 [facility] Urea Nitrogen (BUN) 13 9 - 16 mg/dL [facility] Creatinine, Serum 1.65(H) 0.5 - 1.4 mg/dL [facility] Estimated Glomerular Filt Rate 42 [facility] Comment:Chronic Kidney Disea se: Estimated GFR < 60 mL/min/1.61h8Slevry Kidney Disease: Estimated GFR < 15 mL/min/1.73m2 Glucose 101 60 - 115 mg/dL [facility] Calcium 9.0 8.4 - 10.2 mg/dL [facility] 02/09/2025 1:03 PM EST 02/09/2025 1:03 PM EST us Generic External Data Provider LAB BLOOD ORDERAB LES Final Result [facility] [address] [place] [address] [phone] documented in this encounter Visit Diagnoses Not on filedocumented in this encounter Additional Health Concerns Assessment Noted Time PHQ-9 Depression Total Score: 9 09/15/19 25 2:51 PM EDT documented as of this encounter Care Teams Global Logistics Analyst Relationship Specialty Start Date End Date Mathieu Varela MD [address] [place] [phone] PCP - General Internal Medicine 07/06/13 documented as of this encounter
--- OUTSIDE RECORDS SUMMARY | 2025-02-09 16:41 | XMS_ITS | Encounter Summary ---
Author Organization [employer] Address 75 [facility] 7t [place] [address] Care Team Providers Care Phlebotomist Lab Assistant Name Role Phone Mathieu Varela MD Primary Care Provider [phone] Reason for Visit * Reason Comments Med Refill Encounter Details Date Type Department Care Team (Late st Contact Info) Description 11/23/2022 Refill [facility] CH[facility] MED & PEDS [address] [place], [place] [phone] Mathieu Varela MD [address] [place], [place] [phone] Recurrent major depressive disorder, in partial remission [...] (CMS/HCC) documented in this encounter Care Teams Phlebotomist Lab Assistant Relationship Specialty Start Date End Date Mathieu Varela MD [address] [place] [address] PCP - General Internal Medicine 07/06/13 documented as of this encounter
--- OUTSIDE RECORDS SUMMARY | 2025-02-09 16:41 | XMS_ITS | Encounter Summary ---
Author Organization [employer] Address 75 [facility] 7t [place] [address] Care Team Providers Care Systems Architecture Analyst Name Role Phone Mathieu Varela MD Primary Care Provider Reason for Visit * Reason Onset Date Comments Call Back Request 06/20/2023 Encounter Details Date Type Department Care Team ([facility] st Contact Info) Description 06/20/[address] [facility] CHC MED & PEDS [address] [place] [address] Mathieu Varela MD [address] [place] [address] Call Back Request Social History Tobacco Use [...] message would be relayed to their manager primary care to relay message to PAR. Pt agrees to f/u on 06/28/23. * Telephone Encounter - Corazon Casey - 06/20/2023 3:04 PM EDT Tc from pt requesting to speak with a nurse in regards to refusal on refill for hydrOXYzine HCl (Atarax) 25 MG tablet Please contact pt at [phone] documented in this encounter Plan of Treatment Not on file documented as of this encounter Visit Diagnoses Not on filedocumented in this encounter Care Teams Systems Architecture Analyst Relationship Specialty Start Date End Date Mathieu Varela MD [address] [place] [phone] PCP - General Internal Medicine 07/06/13 documented as of this encounter
--- OUTSIDE RECORDS SUMMARY | 2025-02-09 16:41 | XMS_ITS | Encounter Summary ---
Author Organization [employer] Address [address] [facility] 7t [place] [address] Care Team Providers Care Mold Closer Name Role Phone Mathieu Varela MD Primary Care Provider Reason for Visit * Reason Comments Med Refill Encounter Details Date Type Department Care Team (Late st Contact Info) Description 12/04/2022 Refill [facility] [address] [place] [address] Mathieu Varela MD [address] [place], [place] [phone] Social History Tobacco Use Types Packs/Day Years [...] on filedocumented in this encounter Care Teams Mold Closer Relationship Specialty Start Date End Date Mathieu Varela MD [address] [place] [address] PCP - General Internal Medicine 07/06/13 documented as of this encounter
--- OUTSIDE RECORDS SUMMARY | 2025-02-09 16:41 | XMS_ITS | Encounter Summary ---
Author Organization [employer] Address [address] [facility] 7t [place] [address] Care Team Providers Care Ironmolder Name Role Phone Mathieu Varela MD Primary Care Provider Encounter Details Date Type Department Care Team (Late st Contact Info) Description 08/14/2022 Orders Only [facility] [address] [place] [address] Susanne Cruz LPN Social History Tobacco Use [...] on filedocumented in this encounter Care Teams Ironmolder Relationship Specialty Start Date End Date Mathieu Varela MD [address] [place] [address] PCP - General Internal Medicine 07/06/13 documented as of this encounter
--- OUTSIDE RECORDS SUMMARY | 2025-02-09 16:41 | XMS_ITS | Encounter Summary ---
Author Organization [employer] Address [address] [facility] 7t [place] [address] Care Team Providers Care Employment Coordinator Name Role Phone Mathieu Varela MD Primary Care Provider Encounter Details Date Type Department Care Team (Late st Contact Info) Description 11/09/2022 Orders Only [facility] [address] [place], [place] [phone] Nikki Guadalupe LPN Social History Tobacco Use [...] on filedocumented in this encounter Care Teams Employment Coordinator Relationship Specialty Start Date End Date Mathieu Varela MD [address] [place] [address] PCP - General Internal Medicine 07/06/13 documented as of this encounter
--- OUTSIDE RECORDS SUMMARY | 2025-02-09 16:41 | XMS_ITS | Clinical Summary ---
Author Organization [employer] Address [address] [facility] 7t [place] [address] Care Team Providers Care Ip Counsel Name Role Phone Mathieu Varela MD Primary [...] s:Recurrent major depressive disorder, in partial remission ([facility]/HCC) TAKE 1 TABLET BY MOUTH EVERY 12 [...] disorder 03/04/2019 Stage 3b chronic kidney disease ([facility]) 2019 Hypercholesterolemia 01/15/2013 Angina pectoris 08/21/2011 Benign hypertension 08/21/2011 Chronic obstructive lung disease 08/21/2011 Multiple joint pain 08/21/2011 Encounters Date Type Department Care Team Description 02/09/2025 Orders Only GENERIC EXTERNAL DATA DEPARTMENT Provider, Generic External Data 02/04/2025 Orders Only GENERIC EXTERNAL DATA DEPARTMENT Provider, Generic External Data 02/04/[address] [facility] [address] [place] [address] Mathieu Varela MD 12/29/2024 Orders Only [facility] External Provider, [facility] 11/21/[address] [facility] [address] [place] [address] Mathieu Varela MD Recurrent major depressive disorder, in partial remission ([facility]/HCC) from Last 3 Months Immunizations Immunization Administration [...] Smoking Tobacco: Former Cigarettes 1.5 47 1 [id number] Smokeless Tobacco: Never Tobacco Cessation:Counseling Given: No [...] METABOLIC PANEL Routine 02/09/2025 1:03 PM EST BASIC METABOLIC PANEL Routine 02/04/2025 11:54 AM [...] Maintenance Results * (ABNORMAL) Basic Metabolic Panel (02/09/2025 1:03 PM EST) Only the most recent of2 resultswithin the time period is included. Sodium 140 135 - 145 mmol/L [facility] Potassium 4.3 3.3 - 5.1 mmol/L [facility] Chloride 110(H) 96 - 108 mmol/L [facility] Carbon Dioxide 25 22 - 29 mmol/L [facility] Anion Gap 9(L) 12 - 20 [facility] Urea Nitrogen (BUN) 13 9 - 16 mg/dL [facility] Creatinine, Serum 1.65(H) 0.5 - 1.4 mg/dL [facility] Estimated Glomerular Filt Rate 42 [facility] Comment:Chronic Kidney Disea se: Estimated GFR < 60 mL/min/1.22z2Splfhk Kidney Disease: Estimated GFR < 15 mL/min/1.73m2 Glucose 101 60 - 115 mg/dL [facility] Calcium 9.0 8.4 - 10.2 mg/dL [facility] 02/09/2025 1:03 PM EST 02/09/2025 1:03 PM EST us Generic External Data Provider LAB BLOOD ORDERAB LES Final Result Performing Organization Address City/State/[facility] Co de Phone Number [facility] [address] [place] [phone] * Stress test with myocardial perfusion (12/29/2024 9:35 AM EST) 12/29/2024 9:35 AM EST Narrative [facility] - 12/31/2024 12:28 PM EST [address] [address] Nuclear Medicine Report Signed Patient: Shadi Elliott MR#: [id number] 619 : 1960 Acct:[id number] Age/Sex: 64 / M ADM Date: 12/29/24 Loc: [facility] Attending Dr: Anish Ortiz MD Ordering Physician: Anish Ortiz MD Date of Service: 12/29/24 Procedure(s): NM cardiolite stress test Accession Number(s): [id number] cc: Mathieu Varela MD; Anish Ortiz MD [...] by: Anish Ortiz MD 12/31/2024 12:25 PM [facility] Dictated By: Anihs Ortiz MD Signed By: <Electronically signed by Anish Ortiz MD in OV> 12/31/24 1225 DD/ 0935 TD/TT: 12/30/24 0845 Reclamation Furnace Operator: Procedure Note Donotuseinterpreter, Image - 12/31/[address] [address] Nuclear Medicine Report Signed Patient: Meaghan Elliott#: [id number] 619 : 9Acct:[id number] Age/Sex: 64 / MADM Date: 12/29/24 Loc: [facility] Attending Dr: Anish Ortiz MD Ordering Physician: Anish Ortiz MD Date of Service: 12/29/24 Procedure(s): NM cardiolite stress test Accession Number(s): [id number] cc: Mathieu Varela MD; Anish Ortiz MD [...] 12/31/24 1225 DD/ 0935 TD/TT: 12/30/24 0845 Reclamation Furnace Operator: us [facility] External Provider CV STRE SS PROCEDURES Final Result Performing Organization Address City/State/[facility] Co de Phone Number [facility] [address] [place] [address] * CT Lung Screening Low dose (05/18/2024 2:01 PM EDT) Anatomical Region Laterality Modality Lung Computed Tomogra phy 05/18/2024 2:01 PM EDT Narrative 05/18/2024 2:03 PM EDT [place] [address] CT Scan Report Signed Patient: Shadi Elliott MR#: [id number] 619 : 1960 Acct:[id number] Age/Sex: 63 / M ADM Date: 05/15/24 Loc: [facility]CT Attending Dr: Melanie Gill PA-C Ordering Physician: Melanie Gill PA-C Date of Service: 05/15/24 Procedure(s): CT lung screening Accession Number(s): [id number] cc: Mathieu Varela MD; Melanie Gill PA-C Report Number: [id number]: Total DLP = 61.00 mGy-cm CLINICAL HISTORY: [...] 05/18/24 1402 DD/ 1401 TD/TT: 05/18/24 1401 Reclamation Furnace Operator: Procedure Note Donotuseinterpreter, Image - 05/18/[address] [place] [address] [address] Scan Report Signed Patient: Meaghan Elliott#: [id number] 619 : 9Acct:[id number] Age/Sex: 63 / MADM Date: 05/15/24 Loc: [facility].CT Attending Dr: Melanie Gill PA-C Ordering Physician: Melanie Gill PA-C Date of Service: 05/15/24 Procedure(s): CT lung screening Accession Number(s): [id number] cc: Mathieu Varela MD; Melanie Gill PA-C Report Number: [id number]: Total DLP = 61.00 mGy-cm CLINICAL HISTORY: [...] 05/18/24 1402 DD/ 1401 TD/TT: 05/18/24 1401 Reclamation Furnace Operator: [facility] External Provider IMG CT PROCEDURES Final Result * Hm Colonoscopy (04/01/2024) Colonoscopy Normal Normal Narrative Aura Ritchie - 04/01/2024 Recommended 3-5 years . See see external hospital admission note on with result date Historical Provider HEALTH MAINTENANCE Final Result * Hepatitis C Antibody with Reflex to HCV, RNA, Quantitative, Real-Time PCR (07/01/2023 10:23 AM EDT) Hepatitis C Antibody Nonreactive Nonreactive [facility] Comment:Antibodies to HCV no t detected; does not exclude early acuteHCV infection. Blood Venous blood specimen / Unknown 07/01/2023 10:23 AM EDT 07/01/2023 2:07 PM EDT Mathieu Varela MD LAB BLOOD ORDERABLES Final Result [facility] [address] [place] [phone] * (ABNORMAL) Lipid Panel, Standard (07/01/2023 10:23 AM EDT) Triglycerides 74 <150 mg/dL [facility] Comment:Desirable Triglyceri de: less than 150 mg/dLBorderline High Triglyceride 150-199 mg/dLHigh Triglyceride: 200-499 mg/dLVery High Triglyceride: greater than or equal to 5OO mg/dL Cholesterol 147 <200 mg/dL [facility] Comment:Desirable Cholestero l: less than 200 mg/dLBorderline High Cholesterol: 200-239 mg/dLHigh Cholesterol: greater than 239 mg/dL LDL Cholesterol Calculated 95 <100 mg/dL [facility] Comment:Desirable LDL: less than 100 mg/dLNear Optimal/Above Optimal LDL: 110- 129 mg/dLBorderline High LDL: 130-159 mg/dLHigh LDL: 160-189 mg/dLVery High LDL: greater than or equal to 190 mg/dL HDL Cholesterol 38(L) >40 mg/dL [facility] Comment:Desirable HDL: great er than 40 mg/dL Note: This HDL assay may give artificially low results in patients with liver disease. Blood Venous blood specimen / Unknown 07/01/2023 10:23 AM EDT 07/01/2023 2:07 PM EDT us Mathieu Varela MD LAB BLOOD ORDERABLES Final Result [facility] [address] [place] [phone] from Last 3 Months or Most Recently Relevant to Health Maintenance Insurance MEDICARE [facility] STANDARD * Guarantor: Shadi Elliott Account Type Relation to Patient Date of Phone Billing Address Personal/Family Self [place], [place] * Guarantor: Shadi Elliott Account Type Relation to Patient Date of Phone Billing Address Personal/Family Self [place], [place] Care Teams Ip Counsel Relationship Specialty Start Date End Date Mathieu Varela MD [address] [place] [address] PCP - General Internal Medicine 07/06/13
--- OUTSIDE RECORDS SUMMARY | 2025-02-09 16:41 | XMS_ITS | Encounter Summary ---
Author Organization [employer] Address [address] [facility] 7t [place] [address] Care Team Providers Care Tankerman Name Role Phone Mathieu Varela MD Primary Care Provider Reason for Visit * Reason Comments Med Refill Encounter Details Date Type Department Care Team (Late st Contact Info) Description 03/31/2024 Refill [facility] [address] [place], [place] [phone] Mathieu Varela MD [address] [place], [place] [phone] Other male erectile dysfunction Social History Tobacco [...] documented as of this encounter Care Teams Tankerman Relationship Specialty Start Date End Date Mathieu Varela MD [address] [place] [phone] PCP - General Internal Medicine 07/06/13 documented as of this encounter
== END 2025-02-09 12:52 | disposition home or self-care (01) ==
LOC: HO.LAB 12:51
PROVIDERS: PCP Internal Medicine; Visit Provider Internal Medicine
DX: R07.2 Precordial pain (principal)
CPT/HCPCS: 36415; 80048